=== PATIENT | male | born 1940 | race Hispanic/Latino ===

== ENCOUNTER 2020-01-28 10:25 | Inpatient (IN) | payer MEDICARE ==
--- OUTSIDE RECORDS SUMMARY | 2020-01-28 10:37 | XMS REPORT | Continuity of Care Document ---
:1940 Author Organization [facility] t Address [address] [place] [address] Care Team Providers Name Role Phone Tacos ZULETA, Chai Irving Attending Clinician Ryan ZULETA Attending Clinician 1, Lab Attending Clinician Unavailable Vtc-Lab Attending Clinician Unavailable Problems This patient has no known problems. Allergies, Adverse Reactions, Alerts This patient has no known allergies or adverse reactions. Medications This patient has no known medications. Procedures This patient has no known procedures. Encounters Start End Encounter Admission Attending Care Care Encounter Source Date/Time Date/Time Type Type Clinicians Facility Department ID 2019-12-16 2019-12-16 Telephone Tacos [facility] [id number] 00:00:00 00:00:00 Chai Deleon [id number] [place] [id number] [place] [phone] [place] [address] Office Building 2019-12-06 2019-12-06 Telephone ESTELA Davis [id number] 00:00:00 00:00:00 [facility] [id number] [facility] [id number] [id number] [facility] 2019-11-12 2019-11-12 Case Work Aide 1, Adc Lab [facility] [id number] 09:01:47 09:16:47 Visit [place] [id number] [place] [id number] [place] [address] [id number] 2019-11-02 2019-11-05 Case Work Aide Vtc-Lab [place] [id number] 10:01:37 09:55:50 Visit [facility] [id number] [facility] [id number] [place] [phone] [facility] Results This patient has no known results.
--- OUTSIDE RECORDS SUMMARY | 2020-01-28 10:38 | XMS REPORT | Summary of Care ---
:1939 Author Organization [facility] Address [address] [place] [id number] Care Team Providers Name Role Phone Visit, Adc Nurse Unavailable Unavailable Katelynn Nichols MD Unavailable Outpatient, Ccl Unavailable Unavailable 1, Vas Rm Unavailable Unavailable Tony Angulo Primary Care Provider Reason for Visit Reason Comments New Patient EST CARE GOUT (Routine) Status Reason Specialty Diagnoses / Referred By Referred To Procedures Contact Contact Authorized Rheumatology Diagnoses Chronic combined systolic and diastolic heart failure, NYHA class 2 Stage 3 chronic kidney disease Chai Balderrama Emilio Procedures CONSULT/REFERRAL RHEUMATOLOGY MD Tariq Irving MD [address] [place] [phone] Phone: Encounter Details Date Type Department Care Team Description 11/02/2019 Office Visit [facility] Gabriel Saleh MD [address] [place] [phone] Gouty arthritis (Primary Dx); Rheumatology-Nicolás Strange MD [address] [place], [place] [address] [place] [address] Hyperuricemia; [facility] [place] [facility] Dora Hess MD [address] [place] [phone] CKD (chronic kidney disease), stage III; [address] [facility] CHF (conge stive heart failure), NYHA class I, chronic, systolic; South, Entrance B Osteoarthritis, generalized; [place], [place] [facility] n odes; [phone] Kierra's nodes (with arthr cheli); [phone] Long-term use o f high-risk medication Allergies Active Allergy Reactions Severity Noted Date Comments Enalapril Cough 05/04/2010 documented as of this encounter (statuses as of 11/02/2019) Medications Medication Sig Dispensed Refills Start Date End Date Status docusate 100 mg capsule Take 1 capsule 30 capsule 0 08/16/2016 Active by mouth daily. sennosides 8.6 mg tablet Take 1 tablet 30 tablet 0 08/16/2016 Active by mouth as needed for Constipation. aspirin 81 mg EC tablet Take 1 tablet 90 tablet 3 11/19/2016 Active by mouth daily. nitroglycerin 0.[address] 1 tablet 1 Bottle 2 07/29/2017 Active sublingual tablet under the tongue every 5 (five) minutes as needed for Chest pain. tamsulosin (FLOMAX) 0.4 Take 1 capsule 30 capsule 3 06/09/2018 Active mg 24 hr by mouth daily. capsuleIndications: CKD stage G3a/A2, GFR 45-59 and albumin creatinine ratio 30-299 mg/g pravastatin 20 mg Take 1 tablet 90 tablet 3 06/18/2018 Active tabletIndications: by mouth at Chronic combined bedtime. systolic and diastolic heart failure carvedilol 6.25 mg Take 1 tablet 90 tablet 5 07/01/2018 Active tabletIndications: by mouth 2 Chronic combined (two) times systolic and diastolic daily. heart failure losartan 100 mg tablet Take 1 tablet 30 tablet 0 04/20/2019 Active by mouth daily. spironolactone 25 mg Take 0.5 45 tablet 3 06/26/2019 Active tablet tablets by mouth daily. furosemide 40 mg Take 1 tablet 180 tablet 3 07/20/2019 Active tabletIndications: CKD by mouth every stage G3a/A2, GFR 45-59 morning and and albumin creatinine evening. ratio 30-299 mg/g, Congestive heart failure, unspecified HF chronicity, unspecified heart failure type, Albuminuria, Essential hypertension, Gastroesophageal reflux disease without esophagitis pramipexole 0.5 mg Take 0.5 mg by 0 Active tabletIndications: take mouth 3 (three) one tablet by mouth times daily. every day Indications: take one tablet by mouth every day allopurinoL 100 mg Take 1 tablet 90 tablet 3 10/26/2019 Active tabletIndications: CKD by mouth daily. stage G3a/A2, GFR 45-59 and albumin creatinine ratio 30-299 mg/g, Chronic systolic congestive heart failure, Albuminuria, Essential hypertension, Gastroesophageal reflux disease without esophagitis, Acute gout of right foot, unspecified cause documented as of this encounter (statuses as of 11/02/2019) Active Problems Problem Noted Date Acute gout of right foot, unspecified cause 10/26/2019 Unintentional weight loss 08/16/2019 Pulmonary nodules 08/16/2019 CKD stage G3a/A2, GFR 45-59 and albumin creatinine rat io 30-299 mg/g 06/09/2018 Albuminuria 06/09/2018 CHF (congestive heart failure) 09/24/2017 S/P OFF PUMP CABG x 3 ON 08/12/2016 08/12/2016 CAD (coronary artery disease) 08/12/2016 Unstable angina 08/08/2016 Observation after surgery 08/07/2016 Coronary artery disease involving [place] coronary dal[place] ry without angina 11/07/2015 pectoris PE (pulmonary embolism) 09/19/2011 h/o PTCA with SHIVA in 201005/16/2011 Gastroesophageal reflux disease without esophagitis Atrial thrombus 05/16/2010 Positive PPD 05/10/2010 Ischemic cardiomyopathy 05/10/2010 Systolic heart failure 05/10/2010 Other chest pain 05/01/2010 Spasm of muscle 09/29/2009 Backache 05/11/2009 Overview: ICD10 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 Paroxysmal ventricular tachycardia Chronic systolic heart failure HLD (hyperlipidemia) Essential hypertension documented as of this encounter (statuses as of 11/02/2019) Immunizations Name Administration Dates Next Due Influenza High Dose 01/11/2011 Influenza Virus Vaccine 12/20/2009, 01/19/2007 PPD (TB) 04/25/2010 Pneumococcal Polysaccharide, PPSV23 (PNEUMOVAX) 02/26/2007 Zoster(Zostavax)(Shingles) 03/08/2009 documented as of this encounter Social History Tobacco Use Types Packs/Day Years Used Date Former Smoker Cigarettes 1 27 Quit: 05/05/18 94 Smokeless Tobacco: Former User Q uit: 01/11/1994 Alcohol Use Drinks/Week oz/Week Comments Yes drank 20 beers/d for 7 years; quit 1983 Sex Assigned at Date Recorded Not on file Job Start Date Occupation Industry Not on file Not on file Not on file Travel History Travel Start Travel End No recent travel history available. COVID-19 Exposure Response Date Recorded In the last month, have you been in contact with No / Unsure 11/02/2019 9:10 AM CDT someone who was confirmed or suspected to have Coronavirus / COVID-19? documented as of this encounter Last Filed Vital Signs Vital Sign Reading Time Taken Comments Blood Pressure 123/68 11/02/2019 9:19 AM CDT Pulse 71 11/02/2019 9:19 AM CDT Temperature 36.2 C (97.1 F) 11/02/2019 9:19 AM CDT Respiratory Rate - - Oxygen Saturation 99% 11/02/2019 9:19 AM CDT Inhaled Oxygen Concentration - - Weight 56.1 kg (123 lb 11.2 oz) 11/02/2019 9:19 AM CDT Height - - Body Mass Index 22.63 10/26/2019 10:16 AM CDT documented in this encounter Progress Notes Mahesh Johns - 11/02/2019 9:30 AM CDT Berto Grijalva is a 79 year old male Chief Complaint Patient presents with New Patient EST CARE GOUT ^^RIGHT FOOT Dora Murillo MD - 11/02/2019 9:30 AM CDT 11/01/2019 Chief Complaint/Reason for Visit: Follow-up visit for gout. HPI: Berto Grijalva presents to clinic today for new [facility] (Internal) consultation visit, requested by Dr. Chai Balderrama, for evaluation for gout.He is a 79 year old /White male with past medicalhistory listed below. He presented to the ED in August following pain of his right big toe and was diagnosed with gout.He wasdischarged on colchicine 0.6 mg. 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 He is compliant on allopurinol. He used to take Tylenol for pain. REVIEW OF SYSTEMS General - Negative for fatigue HEENT - Negative for blurry vision and dry mouth Cardiovascular - Negative for chest pain Respiratory - Negative for cough and dyspnea Gastrointestinal -Neg for constipation Genitourinary - no renal stones Skin - Negative for photosensitive rash Neuro - Negative for weakness Hematologic - Negative for easy bruising Psych - Negative for depression HISTORY Past Medical History: Diagnosis Date Benign hypertensive heart disease 01/2007 Benign localized hyperplasia of prostate without urinary obstruction and other lower urinary tract symptoms (LUTS) CAD (coronary artery disease) Carotid artery stenosis 50-79% left, 16-49% right CHF (congestive heart failure) ischemic Chronic systolic heart failure CKD (chronic kidney disease) stage 3, GFR 30-59 ml/min Diverticulosis Esophagitis 01/2007 Generalized osteoarthrosis, unspecified site 09/2006 h/o PTCA with SHIVA in 201005/16/2011 HLD (hyperlipidemia) HTN (hypertension) Paroxysmal ventricular tachycardia S/P OFF PUMP CABG x 3 ON 08/12/2016 08/12/2016 Past Surgical History: Procedure Laterality Date BACK SURGERY x3 OFF PUMP CORONARY ARTERY BYPASS GRAFTING N/A 08/12/2016 Surgeon: Ad Clark MD; Location: [facility] OR Location RI CSI ANY OTHER THAN PCI 2 YR mLAD, D1 (2010) Family History Problem Relation Age of Onset Cancer Mother possibly colon cancer Cancer Son thoracic tumor Pulmonary Father Tb Allergies Allergen Reactions Enalapril Cough Current Outpatient Medications on File Prior to Visit Medication Sig Dispense Refill allopurinoL 100 mg tablet Take 1 tablet by mouth daily. 90 tablet 3 pramipexole 0.5 mg tablet Take 0.5 mg by mouth 3 (three) times daily. Indications: take one tablet by mouth every day furosemide 40 mg tablet Take 1 tablet by mouth every morning and evening. 180 tablet 3 spironolactone 25 mg tablet Take 0.5 tablets by mouth daily. 45 tablet 3 losartan 100 mg tablet Take 1 tablet by mouth daily. 30 tablet 0 carvedilol 6.25 mg tablet Take 1 tablet by mouth 2 (two) times daily. 90 tablet 5 pravastatin 20 mg tablet Take 1 tablet by mouth at bedtime. 90 tablet 3 tamsulosin (FLOMAX) 0.4 mg 24 hr capsule Take 1 capsule by mouth daily. 30 capsule 3 nitroglycerin 0.[address] 1 tablet under the tongue every 5 (five) minutes as needed for Chest pain. 1 Bottle 2 aspirin 81 mg EC tablet Take 1 tablet by mouth daily. 90 tablet 3 docusate 100 mg capsule Take 1 capsule by mouth daily. 30 capsule 0 sennosides 8.6 mg tablet Take 1 tablet by mouth as needed for Constipation. 30 tablet 0 No current facility-administered medications on file prior to visit. PHYSICAL EXAM BP 123/68 | Pulse 71 | Temp 36.2 C (97.1 F) (Tympanic) | Wt 123 lb 11.2 oz (56.1 kg) | SpO2 99% | BMI 22.63 kg/m General: Alert, No apparent distress and Oriented to person, place, and time Psych: Affect euthymic Eyes: Sclera noninjected Ears, Nose, Throat, Mouth: No oral or nasal ulcers or erythema Skin: No rashes noted Neck: No lymphadenopathy Cardiovascular: Regular rate and rhythm and Normal S1 and S2 Respiratory: Clear to auscultation with no wheezing or crackles Abdomen: Soft, nontender, nondistended with normoactive bowel sounds Neuro: Normal gait and Able to arise from seated postion unassisted Musculoskeletal: Hands: Heberden's and Kierra's nodes + Wrists: Normal. Elbows: Normal. Shoulders: Normal. Feet: Normal. Ankles: Normal. Knees: Normal. Hips: Normal. Spine: Normal. Tender points: Normal. No joint swelling, warmth or tenderness in the DIP, PIP, MCP, wrist, elbow, MTP, ankle or knee joints bilaterally. Full ROM of these joints, hips and shoulders bilaterally. LABS Reviewed from September 2019 Uric acid - 8.2 mg/dl ASSESSMENT ICD-10-CM ICD-9-CM 1. Gouty arthritis M10.9 274.00 2. Hyperuricemia E79.0 790.6 3. CKD (chronic kidney disease), stage III N18.3 585.3 4. CHF (congestive heart failure), NYHA class I, chronic, systolic I50.22 428.22 428.0 5. Osteoarthritis, generalized M15.9 715.00 6. 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 Long-term use of high-risk medication Z79.899 V58.69 Gouty arthritis Hyperuricemia Comment : he is currently in remission No signs of inflammation on exam. On allopurinol 100 mg since one week. Plan : will continue current dose of allopurinol and hold off on colchicine now. Ordering HCV ab, CMP and HLA B *5801 CKD 3 Comment : avoid NSAIDs and renally dose meds Plan : continue f/u with nephrology Osteoarthritis, generalized Heberden's nodes Kierra's nodes Comment : OA of hands as clinically evidenced by the presence of heberden's and Kierra's nodes Plan : May use OTC Tylenol but not to exceed 2 g in 24 hours. 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 Dora Hess MD Rheumatology fellow Pager [phone] Nicolás Mendoza MD - 11/02/2019 9:30 AM JACKSONr[place] [address] Hess, I interviewed and examined the patient with Dr. Hess today in the clinic. Berto Grijalva is a 79 year old male from [place], a new patient. He is being referred by nephrology because of a history of gout and hyperuricemia, just diagnosed, and just started on allopurinol, 100 mg in October 2019. Thus far, he suffered only one attack in the right big toe, he says, and the gout diagnosis is not crystal-proven. He denies other joints being affected. A serum uric acid was 8.2 mg/dl in September 2019, and he was placed on allopurinol, 100 mg PO daily in October 2019. He has multiplemedical problems, as follows: PMH: CKD, stage 3, BPH with LUTS, improved on Flomax, GERD, CHF with chronic systolic heart failure, HTN, hyperlipidemia, generalized OA, CAD, carotid artery stenosis, paroxysmal ventricular tachycardia, and S/P CABG, x 3. He sees nephrology at [facility]. He is a former smoker, quitting in 1993, with a 27 pack year history, and he drinks alcohol. Medications: allopurinol, 100mg, SL Nitro, pramipexole, Lasix, Coreg, spironolactone, losartan, Pravachol, ASA 81 mg, Flomax, docusate. His labs are from September and October 2019: a CBC, UA, TSH, and CMP are normal, except for a serum creatinine of 1.54 mg/dl, and a serum uric acid level of 8.2 mg/dl. An MONTSE is negative. We don't have an HLA-B58*01, and a hep C screen. A chest-x-ray in 2018 showed some degree of cardiomegaly, and pulmonary congestion. PE: he is thin; there are no acutely swollen joints. He has sizable Heberden's and Kierra's nodes,bilaterally. There is no synovitis. The right big toe looks hyperpigmented but is not now swollen ortender to touch. His lungs are clear. He has generalized OA, and superimposed gout, in addition to many other medical problems, as above-listed. Today, we are ordering an HLA-B58*01, and a hep C screen. Therapeutically, we are continuing the allopurinol 100 mg PO daily for now. It is likely he will need a greater dose, e.g., 200 mg or perhaps even 300 mg PO daily to induce normouricemia. We are not prescribing colchicine at this time. We will see him again in 2-3 months, and have left future, standing orders for a repeat CBC, CMP, and a serum uric acid, on the allopurinol. We counseled him on the proper gout diet. The potential medication side effects were discussed, including renal and liver dysfunction, cytopenias, bone marrow suppression, allergic hypersensitivity reactions, the AHS, skin rashes, stomach upset, etc. I agree with Dr. Hess's impressions & recommendations, as written. documented in this encounter Plan of Treatment Date Type Specialty Care Team Description 01/05/2020 Appointment Cardiac Electrophysiology Pacemaker/Icd, [place] 02/08/2020 Office Visit Rheumatology Dora Hess MD [address] [place] [phone] Nicolás Daniels MD [address] [place], [place] [phone] [place] [address] 02/29/2020 Office Visit Nephrology Karlee Davis M D [address] [place] [address] 03/09/2020 Office Visit Pulmonary Disease Joaquin Martin, [address] [place] [phone] Name Type Priority Associated Diagnoses Order S paul HLA-ABC-DR TYPING RENAL LAB Routine Gouty arthritis E xpected: 11/02/2019, Expires: 2020 Health Maintenance Due Date Last Done Comments DTaP,Tdap,and Td Vaccines (1 - Tdap) 10/29/1951 Medicare Wellness Visit 10/29/2004 PNEUMOCOCCAL VACCINES 65+ (2 of 2 - 02/27/2008 02/26/2007 PCV13) Zoster Recombinant Vaccine (SHINGRIX) 05/03/2009 03/08/2009 (2 of 3) INFLUENZA VACCINE (#1) 2019 01/11/2011, 12/20/2009, 01/19/2007 Depression Screening 04/29/2020 04/29/2019 documented as of this encounter Results COMP. METABOLIC PANEL (95056) (11/02/2019 10:41 AM CDT) NA 138 135 - [address] [facility] mmol/L [facility] K 5.4 (H) 3.5 - 5.[address] [facility] mmol/L [facility] CL 105 98 - 108 mmol/L [facility] CO2 TOTAL 26 23 - 31 mmol/L [facility] AGAP 7 2 - [address] [facility] BUN 31 (H) 7 - 23 mg/dL [facility] GLUCOSE 110 70 - 110 mg/dL [facility] CREATININE 1.56 (H) 0.60 - 1.[address] [facility] mg/dL [facility] TOTAL BILI 0.3 0.1 - 1.1 mg/dL [facility] CALCIUM 10.2 8.6 - 10.[address] [facility] mg/dL [facility] T PROTEIN 7.3 6.3 - 8.2 g/dL [facility] ALBUMIN 4.3 3.5 - 5.0 g/dL [facility] ALK PHOS 83 34 - 122 U/L [facility] ALTv 37 5 - 50 U/L [facility] AST(SGOT) 45 (H) 13 - 40 U/L [facility] eGFR Calculation 43.0 mL/min/1.73m2 [facility] (Non- [facility] [place] eGFR Calculation 52.2 mL/min/1.73m2 [facility] () [facility] Specimen Blood - ARM, LEFT Narrative Performed At Association of Glomerular Filtration Rate [facility] (GFR) and Staging of Kidney Disease* CAMPUS + + --+ + | GFR (mL/min/1.73 m2) | With Kidney Damage | Without Kidney Damage + + --+ + | >90 | Stage one | Normal + + --+ + | 60-89 | Stage two | Decreased GFR + + --+ + | 30-59 | Stage three | Stage three + + --+ + | 15-29 | Stage four | Stage four + + --+ + | <15 (or dialysis) | Stage five | Stage five + + --+ + *Each stage assumes the associated GFR level has been in effect for at least three months. Stages 1 to 5, with or without kidney disease, indicate chronic kidney disease. Notes: Determination of stages one and two (with eGFR >59mL/min/1.73 m2) requires estimation of kidney damage for at least three months as defined by structural or functional abnormalities of the kidney, manifested by either: Pathological abnormalities or Markers of kidney damage (including abnormalities in the composition of the blood or urine or abnormalities in imaging tests). Performing Organization Address City/State/Zipcode Phone Number [facility] CLIA: [id number], [address] [place] [address] SERVICES-[facility] HCV ANTIBODY (11/02/2019 10:41 AM CDT) Pathologist Sig nature HCV Ab Negative [facility] SERVICES HCV Semi-Quantitative 0.[address] [facility] SERVICES Specimen Blood - ARM, LEFT Performing Organization Address City/State/Zipcode Phone Number [facility] CLIA: [id number], [address] [place], [place] [address] [facility] documented in this encounter Visit Diagnoses Diagnosis Gouty arthritis - Primary Gouty arthropathy, unspecified Hyperuricemia Other abnormal blood chemistry CKD (chronic kidney disease), stage III Chronic kidney disease, Stage III (moder ate) CHF (congestive heart failure), NYHA cla ss I, chronic, systolic Osteoarthritis, generalized Generalized osteoarthrosis, unspecified site Heberden's nodes Generalized osteoarthrosis, involving quintero nd Kierra's nodes (with arthropathy) Long-term use of high-risk medication documented in this encounter Insurance Payer Benefit Plan / Subscriber ID Effective Phone Address T ype Group Dates [facility] [id number] 2019-[place] [facility] - MEDICARE HMO MANAGED MEDICARE ADVANTAGE documented as of this encounter Advance Directives Type Date 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
--- OUTSIDE RECORDS SUMMARY | 2020-01-28 10:38 | XMS REPORT | Summary of Care ---
:1939 Author Organization [facility] - Health Address [address] [place] [address] Care Team Providers Name Role Phone Visit, Adc Nurse Unavailable Unavailable Katelynn Nichols MD Unavailable Outpatient, Ccl Unavailable Unavailable 1, Vas Rm Unavailable Unavailable Kev E Primary Care Provider Reason for Visit Reason Comments Blood Draw Encounter Details Date Type Department Care Team Description 11/02/2019 Button Clamper Visit LAB SERVICES AT [facility] Gelacio Saleh MD [address] [place] [address] [phone] Gouty arthritis; MULTISPECIALTY Nicolás Riley MD [address] [place], [place] [address] [place], [place] [phone] Chronic combined systolic and diastolic heart failure, NYHA class 2; [facility] Stage 3 chronic [place] [address] Allergies Active Allergy Reactions Severity Noted Date Comments Enalapril Cough 05/04/2010 documented as of this encounter (statuses as of 11/03/2019) Medications Medication Sig Dispensed Refills Start Date [...] as of this encounter (statuses as of 11/03/2019) Active Problems Problem Noted Date Acute gout [...] after surgery 08/07/2016 Coronary artery disease involving [place] coronary dalton ry without angina 11/07/2015 pectoris PE (pulmonary embolism) 09/19/2011 h/o PTCA with SHIVA in 201005/16/2011 Gastroesophageal reflux disease without esophagitis Atrial thrombus 05/16/2010 Positive PPD 05/10/2010 Ischemic cardiomyopathy 05/10/2010 Systolic heart failure 05/10/2010 Other chest pain 05/01/2010 Spasm of muscle 09/29/2009 Backache 05/11/2009 Overview: ICD10 Diagnosis Term Manager Of Procurement Utility Paroxysmal ventricular tachycardia Chronic systolic heart failure HLD (hyperlipidemia) Essential hypertension documented as of this encounter (statuses as of 11/03/2019) Immunizations Name Administration Dates Next Due Influenza [...] of this encounter Last Filed Vital Signs Not on filedocumented in this encounter Plan of Treatment Date Type Specialty Care Team Description 01/05/2020 Appointment Cardiac Electrophysiology Pacemaker/Icd, Miles 02/08/2020 Office Visit Rheumatology Dora Hess MD [address] [place] [phone] Nicolás Daniels MD [address] [place], [place] [id number] [place] [address] [phone] 02/29/2020 Office Visit Nephrology Karlee Davis M D [address] [place] [phone] 03/09/2020 Office Visit Pulmonary Disease Joaquin Martin DO [address] [place] [phone] Health Maintenance Due Date Last Done Comments DTaP,Tdap,and Td Vaccines (1 - Tdap) 10/29/1951 Medicare Wellness Visit 10/29/2004 PNEUMOCOCCAL VACCINES 65+ (2 of 2 - 02/27/2008 02/26/2007 PCV13) Zoster Recombinant Vaccine (SHINGRIX) 05/03/2009 03/08/2009 (2 of 3) INFLUENZA VACCINE (#1) 2019 01/11/2011, 12/20/2009, 01/19/2007 Depression Screening 04/29/2020 04/29/2019 documented as of this encounter Procedures Procedure Name Priority Date/Time Associated Diagnosis Comme nts N-TERMINAL PRO-BNP Routine 11/02/2019 10:41 AM Chronic combine d Results for this CDT systolic and procedure are i n diastolic heart the results failure, NYHA class section. 2 Stage 3 chronic kidney disease HCV ANTIBODY Routine 11/02/2019 10:41 AM Gouty arthritis Resul ts for this CDT procedure are i n the results section. COMP. METABOLIC Routine 11/02/2019 10:41 AM Gouty arthritis Re sults for this PANEL (51966) CDT procedure are in the results section. documented in this encounter Results N-TERMINAL PRO-BNP (11/02/2019 10:41 AM CDT) Pathologist Sig nature NT-proBNP 937 (H) <=450 pg/mL [facility] Specimen Blood - ARM, LEFT Narrative Performed At Biotin has been reported to cause a [facility] negative bias, interpret results relative to patient's use of biotin. Performing Organization Address City/State/Zipcode Phone Number [facility] CLIA: [id number], [address] [place] [address] [facility] HCV ANTIBODY (11/02/2019 10:41 AM CDT) Pathologist Sig nature HCV Ab Negative [facility] SERVICES HCV Semi-Quantitative 0.02 [facility] SERVICES Specimen Blood - ARM, LEFT Performing Organization Address City/State/Zipcode Phone Number [facility] CLIA: [id number], [address] [place], [place] [address] [facility] COMP. METABOLIC PANEL (16542) (11/02/2019 10:41 AM CDT) NA 138 135 - 145 [facility] mmol/L [facility] K 5.4 (H) 3.5 - 5.0 [facility] mmol/L [facility] CL 105 98 - 108 mmol/L [facility] CO2 TOTAL 26 23 - 31 mmol/L [facility] AGAP 7 2 - 16 [facility] BUN 31 (H) 7 - 23 mg/dL [facility] GLUCOSE 110 70 - 110 mg/dL [facility] CREATININE 1.56 (H) 0.60 - 1.25 [facility] mg/dL [facility] TOTAL BILI 0.3 0.1 - 1.1 mg/dL [facility] CALCIUM 10.2 8.6 - 10.6 [facility] mg/dL [facility] T PROTEIN 7.3 6.3 - 8.2 g/dL [facility] ALBUMIN 4.3 3.5 - 5.0 g/dL [facility] ALK PHOS 83 34 - 122 U/L [facility] ALTv 37 5 - 50 U/L [facility] AST(SGOT) 45 (H) 13 - 40 U/L [facility] eGFR Calculation 43.0 mL/min/1.73m2 [facility] (Non- [facility] eGFR Calculation 52.2 mL/min/1.73m2 [facility] () [facility] Specimen Blood - ARM, LEFT Narrative Performed At Association of Glomerular Filtration Rate [facility] (GFR) and Staging of Kidney Disease* [place] + + --+ + | GFR (mL/min/1.73 [...] tests). Performing Organization Address City/State/Zipcode Phone Number [facility] CLIA: [id number], [address] [place] [address] [phone] SERVICES-[facility] documented in this encounter Visit Diagnoses Diagnosis Gouty arthritis Gouty arthropathy, unspecified Chronic combined systolic and diastolic heart failure, NYHA class 2 Stage 3 chronic kidney disease documented in this encounter Insurance Payer Benefit Plan / Subscriber ID Effective Phone Address T e Group [facility] [id number] 2019-Kaylee olson [facility] - MEDICARE HMO MANAGED MEDICARE ADVANTAGE documented as of this encounter Advance Directives Type Date Recorded 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
--- OUTSIDE RECORDS SUMMARY | 2020-01-28 10:38 | XMS REPORT | Summary of Care ---
:1939 Author Organization [facility] - Health Address [address] [place] [address] Care Team Providers Name Role Phone Visit, Adc Nurse Unavailable Unavailable Katelynn Nichols MD Unavailable Outpatient, Ccl Unavailable Unavailable 1, Vas Rm Unavailable Unavailable Kev E Primary Care Provider Reason for Visit Reason Comments Blood Draw Encounter Details Date Type Department Care Team Description 11/02/2019 Reporting Developer Visit LAB SERVICES AT [facility] Gelacio Saleh MD [address] [place] [address] [phone] Gouty arthritis; MULTISPECIALTY Nicolás Riley MD [address] [place], [place] [id number] [place], [place] [address] Chronic combined systolic and diastolic heart failure, NYHA class 2; [address] [facility] Stage 3 [place] [address] Allergies Active Allergy Reactions Severity [...] after surgery 08/07/2016 Coronary artery disease involving [place] coronary dalton ry without angina 11/07/2015 pectoris PE (pulmonary embolism) 09/19/2011 h/o PTCA with SHIVA in 201005/16/2011 Gastroesophageal reflux disease without esophagitis Atrial thrombus 05/16/2010 Positive PPD 05/10/2010 Ischemic cardiomyopathy 05/10/2010 Systolic heart failure 05/10/2010 Other chest pain 05/01/2010 Spasm of muscle 09/29/2009 Backache 05/11/2009 Overview: ICD10 Diagnosis Term Shop Hand Utility Paroxysmal ventricular tachycardia Chronic systolic heart [...] 02/08/2020 Office Visit Rheumatology Dora Hess MD [address] [place] [phone] Nicolás Daniels MD [address] [place], [place] [address]RT[address] [place] [address] [phone] 02/29/2020 Office Visit Nephrology Karlee Davis M D [address] [place] [address] 03/09/2020 Office Visit Pulmonary Disease Joaquin Martin DO [address] [place] [phone] Name Type Priority Associated Diagnoses Date/Ti me COMP. METABOLIC PANEL LAB Routine Gouty arthritis 10:41 AM CDT (16548) HCV ANTIBODY LAB Routine Gouty arthritis 11/02/2019 1 0:41 AM CDT N-TERMINAL PRO-BNP LAB Routine Chronic combined 11/01 10:41 AM CDT systolic and diastolic heart failure, NYHA class 2 Stage 3 chronic kidney disease Health Maintenance Due Date Last Done Comments DTaP,Tdap,and Td Vaccines (1 - Tdap) 10/29/1951 Medicare Wellness Visit 10/29/2004 PNEUMOCOCCAL VACCINES 65+ (2 of 2 - 02/27/2008 02/26/2007 PCV13) Zoster Recombinant Vaccine (SHINGRIX) 05/03/2009 03/08/2009 (2 of 3) INFLUENZA VACCINE (#1) 2019 01/11/2011, 12/20/2009, 01/19/2007 Depression Screening 04/29/2020 04/29/2019 documented as of this encounter Results Not on filedocumented in this encounter Visit Diagnoses Diagnosis Gouty arthritis Gouty arthropathy, unspecified Chronic combined systolic and diastolic heart failure, NYHA class 2 Stage 3 chronic kidney disease documented in this encounter Insurance Payer Benefit Plan / Subscriber ID Effective Phone Address T ype Group Dates [facility] [id number] 2019-Kaylee olson [facility] - MEDICARE HMO MANAGED MEDICARE ADVANTAGE documented as of this encounter Advance Directives Type Date Recorded 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
--- OUTSIDE RECORDS SUMMARY | 2020-01-28 10:38 | XMS REPORT | Summary of Care ---
:1939 Author Organization [facility] Address [address] [place] [address] Care Team Providers Name Role Phone Visit, [...] Procedures CONSULT/REFERRAL RHEUMATOLOGY MD Tariq Irving MD [address] [place] [phone] Phone: Encounter Details Date Type Department Care Team Description 11/02/2019 Office Visit [facility] Gabriel Saleh MD [address] [place] [phone] Gouty arthritis (Primary Dx); Rheumatology-Nicolás Strange MD [address] [place], [place] [address] [place] [address] Hyperuricemia; [facility] Dora Hess MD [address] [place] [phone] CKD (chronic kidney disease), stage III; [address] [facility] CHF (conge stive heart failure), NYHA class I, chronic, systolic; South, Entrance B Osteoarthritis, generalized; [place], [place] [facility]; [phone] Kierra's nodes (with arthr cheli); [phone] Long-term use o f high-risk medication Allergies [...] after surgery 08/07/2016 Coronary artery disease involving [place] coronary dalton ry without angina 11/07/2015 pectoris PE (pulmonary embolism) 09/19/2011 h/o PTCA with SHIVA in 201005/16/2011 Gastroesophageal reflux disease without esophagitis Atrial thrombus 05/16/2010 Positive PPD 05/10/2010 Ischemic cardiomyopathy 05/10/2010 Systolic heart failure 05/10/2010 Other chest pain 05/01/2010 Spasm of muscle 09/29/2009 Backache 05/11/2009 Overview: ICD10 Diagnosis Term Sharepoint Solutions Architect Utility Paroxysmal ventricular tachycardia Chronic systolic heart [...] Grijalva presents to clinic today for new [facility] (Internal) consultation visit, requested by Dr. Chai Balderrama, for evaluation for gout.He is a 79 year old /White male with past medicalhistory listed below. He presented to the ED in August following pain of his right big toe and was diagnosed with gout.He wasdischarged on colchicine 0.6 mg. He was started on allopurinol 100 mg by his sem manager .He reports that he feels good and [...] N/A 08/12/2016 Surgeon: Ad Clark MD; Location: [facility] OR Location [place] CSI ANY OTHER THAN PCI 2 YR [...] to exceed 2 g in 24 hours. 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 Dora Hess MD Rheumatology fellow Pager [phone] Nicolás Mendoza MD - 11/02/2019 9:30 AM [place] [address] Hess, I interviewed and examined the patient with Dr. Hess today in the clinic. Berto Grijalva is a 79 year old male from [place], a new patient. He is being referred [...] CABG, x 3. He sees nephrology at [facility]. He is a former smoker, quitting [...] 02/08/2020 Office Visit Rheumatology Dora Hess MD [address] [place] [phone] Nicolás Daniels MD [address] [place], [place] [address] [place] [address] 02/29/2020 Office Visit Nephrology Karlee Davis M D [address] [place] [address] 03/09/2020 Office Visit Pulmonary Disease Joaquin Martin, [address] [place] [phone] Name Type Priority Associated Diagnoses Order [...] of this encounter Results COMP. METABOLIC PANEL (96310) (11/02/2019 10:41 AM CDT) NA 138 135 - 145 [facility] mmol/L [facility] K 5.4 (H) 3.5 - 5.0 [facility] mmol/L [facility] CL 105 98 - 108 mmol/L [facility] CO2 TOTAL 26 23 - 31 mmol/L [facility] AGAP 7 2 - 16 [facility] BUN 31 (H) 7 - 23 mg/dL [facility] GLUCOSE 110 70 - 110 mg/dL [facility] CREATININE 1.56 (H) 0.60 - 1.25 [facility] mg/dL [facility] TOTAL BILI 0.3 0.1 - 1.1 mg/dL [facility] CALCIUM 10.2 8.6 - 10.6 [facility] mg/dL [facility] T PROTEIN 7.3 6.3 - 8.2 g/dL [facility] ALBUMIN 4.3 3.5 - 5.0 g/dL [facility] ALK PHOS 83 34 - 122 U/L [facility] ALTv 37 5 - 50 U/L [facility] AST(SGOT) 45 (H) 13 - 40 U/L [facility] eGFR Calculation 43.0 mL/min/1.73m2 [facility] (Non- [facility]) [facility] eGFR Calculation 52.2 mL/min/1.73m2 [facility] () [facility] Specimen Blood - ARM, LEFT Narrative Performed At Association of Glomerular Filtration Rate [facility] (GFR) and Staging of Kidney Disease* CAMPUS [...] tests). Performing Organization Address City/State/Zipcode Phone Number [facility] CLIA: [id number], [address] [place] [address] [phone] SERVICES-[facility] HCV ANTIBODY (11/02/2019 10:41 AM CDT) Pathologist Sig nature HCV Ab Negative [facility] HCV Semi-Quantitative 0.02 [facility] Specimen Blood - ARM, LEFT Performing Organization Address City/State/Zipcode Phone Number [facility] CLIA: [id number], [address] [place], [place] [address] [facility] documented in this encounter Visit Diagnoses Diagnosis [...] Effective Phone Address T ype Group Dates [facility] [id number] 2019-Kaylee Il whitney [facility] - MEDICARE HMO MANAGED MEDICARE ADVANTAGE documented as of this encounter Advance Directives Type Date Recorded 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
--- OUTSIDE RECORDS SUMMARY | 2020-01-28 10:39 | XMS REPORT | Summary of Care ---
:1939 Author Organization [facility] Address [address] [place] [address] Care Team Providers Name Role Phone Visit, Adc Nurse Unavailable Unavailable Katelynn Nichols MD Unavailable Outpatient, Ccl Unavailable Unavailable 1, Vas Rm Unavailable Unavailable Kev E Primary Care Provider Reason for Visit Reason Comments Results Encounter Details Date Type Department Care Team Description 11/03/2019 Telephone [facility] Cardiology, Chai Balderrama MD Results [address], [address] [place] [address] Floor [phone] [place] [phone] Allergies Active Allergy Reactions Severity Noted Date [...] after surgery 08/07/2016 Coronary artery disease involving [place] coronary dalton ry without angina 11/07/2015 pectoris PE (pulmonary embolism) 09/19/2011 h/o PTCA with SHIVA in 201005/16/2011 Gastroesophageal reflux disease without esophagitis Atrial thrombus 05/16/2010 Positive PPD 05/10/2010 Ischemic cardiomyopathy 05/10/2010 Systolic heart failure 05/10/2010 Other chest pain 05/01/2010 Spasm of muscle 09/29/2009 Backache 05/11/2009 Overview: ICD10 Diagnosis Term Energy Consultant Utility Paroxysmal ventricular tachycardia Chronic systolic heart [...] Years Used Date Former Smoker Cigarettes 1 Quit: 05/05/18 94 Smokeless Tobacco: Former User [...] Treatment Date Type Specialty Care Team Description 11/12/2019 Fire Safety Inspector Visit Clinical Medical 1, Adc Lab Laboratory 01/05/2020 Appointment Cardiac Electrophysiology Pacemaker/Icd, Miles 02/08/2020 Office Visit Rheumatology Dora Hess MD [address] [place] [phone] Nicolás Daniels MD [address] [place], [place] [address] [place], [place] [phone] 02/29/2020 Office Visit Nephrology Karlee Davis M D [address] [place], [place] [address], [place] [address] [phone] 03/09/2020 Office Visit Pulmonary Disease Joaquin Martin DO [address] [place] [phone] Name Type Priority Associated Diagnoses Order S chedule BASIC METABOLIC PANEL LAB Routine Chronic combined sy stolic Expected: 11/03/2019, ([id number])(NA, K, CL, CO2, and diastolic hea rt Expires: 11/02/2020 GLUCOSE, BUN, failure, NYHA class 2 CREATININE, [place]) N-TERMINAL PRO-BNP LAB Routine Chronic combined systo lic Expected: 11/03/2019, and diastolic heart Expires: 11/02/2020 failure, NYHA class 2 Health Maintenance Due Date Last Done Comments DTaP,Tdap,and Td Vaccines (1 - Tdap) 10/29/1951 Medicare Wellness Visit 10/29/2004 PNEUMOCOCCAL VACCINES 65+ (2 of 2 - 02/27/2008 02/26/2007 PCV13) Zoster Recombinant Vaccine (SHINGRIX) 05/03/2009 03/08/2009 (2 of 3) INFLUENZA VACCINE (#1) 2019 01/11/2011, 12/20/2009, 01/19/2007 Depression Screening 04/29/2020 04/29/2019 documented as of this encounter Results Not on filedocumented in this encounter Visit Diagnoses Diagnosis Chronic combined systolic and diastolic heart failure, NYHA class 2 - Primary documented in this encounter Insurance Payer Benefit Plan / Subscriber ID Effective Phone Address T ype Group Dates [place] [facility] [id number] 2019-Kaylee olson [facility] HEALTHCARE - MEDICARE HMO MANAGED MEDICARE ADVANTAGE documented as of this encounter Advance Directives Type Date Recorded 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
--- OUTSIDE RECORDS SUMMARY | 2020-01-28 10:39 | XMS REPORT | Summary of Care ---
:1940 Author Organization [facility] Address [address] [place] [address] Care Team Providers Name Role Phone Visit, Adc Nurse Unavailable Unavailable Katelynn Nichols MD Unavailable Outpatient, Ccl Unavailable Unavailable 1, Vas Rm Unavailable Unavailable Tony Angulo Primary Care Provider Reason for Visit Reason Comments LAB WORK Auth/Cert Status Reason Specialty Diagnoses / Procedures Referred By Olinda bose Referred To Contact Phlebotomy Diagnoses CKD stage G3a/A2, GFR 45-59 and albumin creatinine ratio 30-299 mg/g - Primary Adc Pob Lab Draw Procedures Intact PTH Urinalysis Pro/Hemo [facility] [address] [place] [address] , [address] [place] [address] Phone: Fax: Encounter Details Date Type Department Care Team Description 10/21/2019 [employer] Visit [facility] Karlee Davis MD [address] [place] [address] CKD stage G3a/A2, GFR Professional Office Pob, Adc Lab Main 45-59 and albumin Building Phlebotomy creatini ne ratio Lab 30-299 mg/g Professional [facility] Building [address] [place] [address] , [address] [place] [address] Allergies Active Allergy Reactions Severity Noted Date Comments Enalapril Cough 05/04/2010 documented as of this encounter (statuses as of 11/03/2019) Medications Medication Sig Dispensed Refills Start Date End Date Status docusate 100 mg Take 1 30 capsule 0 08/16/2016 Ac tive capsule capsule by mouth daily. sennosides 8.6 mg Take 1 30 tablet 0 08/16/2016 A ctive tablet tablet by mouth as needed for Constipation . aspirin 81 mg EC Take 1 90 tablet 3 11/19/2016 Ac tive tablet tablet by mouth daily. nitroglycerin 0.[address] 1 1 Bottle 2 07/29/2017 Active sublingual tablet tablet under the tongue every 5 (five) minutes as needed for Chest pain. tamsulosin (FLOMAX) Take 1 30 capsule 3 06/09/2018 Active 0.4 mg 24 hr capsule by capsuleIndications: mouth daily. 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 losartan 100 mg tablet Take 1 30 tablet 0 04/20/2019 Active tablet by mouth daily. spironolactone 25 mg Take 0.5 45 tablet 3 06/26/2019 Active tablet tablets by mouth daily. furosemide 40 mg Take 1 180 tablet 3 07/20/2019 A ctive tabletIndications: CKD tablet by stage G3a/A2, GFR mouth every 45-59 and albumin morning and creatinine ratio evening. 30-299 mg/g, Congestive heart failure, unspecified HF chronicity, unspecified heart failure type, Albuminuria, Essential hypertension, Gastroesophageal reflux disease without esophagitis colchicine 0.6 mg Take one 30 tablet 1 09/10/2019 D iscontinued tabletIndications: tablet by 0 Acute gout involving mouth daily toe of right foot, as needed unspecified cause for toe pain documented as of this encounter (statuses as of 11/03/2019) Active Problems Problem Noted Date Unintentional weight loss 08/16/2019 Pulmonary nodules 08/16/2019 CKD stage G3a/A2, GFR 45-59 and albumin creatinine rat io 30-299 mg/g 06/09/2018 Albuminuria 06/09/2018 CHF (congestive heart failure) 09/24/2017 S/P OFF PUMP CABG x 3 ON 08/12/2016 08/12/2016 CAD (coronary artery disease) 08/12/2016 Unstable angina 08/08/2016 Observation after surgery 08/07/2016 Coronary artery disease involving [place] coronary [place] ry without angina 11/07/2015 pectoris PE (pulmonary embolism) 09/19/2011 h/o PTCA with SHIVA in 201005/16/2011 Gastroesophageal reflux disease without esophagitis Atrial thrombus 05/16/2010 Positive PPD 05/10/2010 Ischemic cardiomyopathy 05/10/2010 Systolic heart failure 05/10/2010 Other chest pain 05/01/2010 Spasm of muscle 09/29/2009 Backache 05/11/2009 Overview: ICD10 Diagnosis Term Manager Zone Utility Paroxysmal ventricular tachycardia Chronic systolic heart [...] been in contact with No / Unsure 09/22/2019 10:14 AM CDT someone who was confirmed or suspected to have Coronavirus / COVID-19? documented as of this encounter Last Filed Vital Signs Not on filedocumented in this encounter Plan of Treatment Date Type Specialty Care Team Description 01/05/2020 Appointment Cardiac Electrophysiology Pacemaker/Icd, Miles 02/08/2020 Office Visit Rheumatology Dora Hess MD [address] [place] [phone] Nicolás Daniels MD [address] [place], [place] [id number] [place] [address] [phone] 02/29/2020 Office Visit Nephrology Karlee Davis M D [address] [place] [address] 03/09/2020 Office Visit Pulmonary Disease Joaquin Martin DO [address] [place] [phone] Health Maintenance Due Date Last Done Comments DTaP,Tdap,and Td Vaccines (1 - Tdap) 10/29/1951 Medicare Wellness Visit 10/29/2004 PNEUMOCOCCAL VACCINES 65+ (2 of 2 - 02/27/2008 02/26/2007 PCV13) Zoster Recombinant Vaccine (SHINGRIX) 05/03/2009 03/08/2009 (2 of 3) INFLUENZA VACCINE (#1) 2019 01/11/2011, 12/20/2009, 01/19/2007 Depression Screening 04/29/2020 04/29/2019 documented as of this encounter Procedures Procedure Name Priority Date/Time Associated Comments Diagnosis PROTEIN CREAT RATIO Routine 10/21/2019 10:24 AM CKD stage G3a/ A2, Results for this URINE RANDOM CDT GFR 45-59 and procedure are in albumin creatinine the resul ts ratio 30-299 mg/g section. URINALYSIS Routine 10/21/2019 10:24 AM CKD stage G3a/A2, Res ults for this CDT GFR 45-59 and procedure are in albumin creatinine the resul ts ratio 30-299 mg/g section. PROFILE / HEMOGRAM Routine 10/21/2019 10:22 AM CKD stage G3a/A 2, Results for this CDT GFR 45-59 and procedure are in albumin creatinine the resul ts ratio 30-299 mg/g section. INTACT PTH CALCIUM Routine 10/21/2019 10:22 AM CKD stage G3a/A 2, Results for this GROUP CDT GFR 45-59 and procedure are in albumin creatinine the resul ts ratio 30-299 mg/g section. BASIC METABOLIC Routine 10/21/2019 10:22 AM CKD stage G3a/A2, Results for this PANEL (NA, K, CL, CDT GFR 45-59 and procedure are in CO2, GLUCOSE, BUN, albumin creatinine the results CREATININE, CA) ratio 30-299 mg/g section . MAGNESIUM Routine 10/21/2019 10:22 AM CKD stage G3a/A2, Res ults for this CDT GFR 45-59 and procedure are in albumin creatinine the resul ts ratio 30-299 mg/g section. PHOSPHORUS Routine 10/21/2019 10:22 AM CKD stage G3a/A2, Res ults for this CDT GFR 45-59 and procedure are in albumin creatinine the resul ts ratio 30-299 mg/g section. documented in this encounter Results URINALYSIS (10/21/2019 10:24 AM CDT) Pathologist Sig nature APPEARANCE Clear Clear [facility] COLOR Yellow Yellow [facility] PH 5.0 4.8 - 8.0 [facility] SP GRAVITY 1.011 1.003 - 1.030 [facility] GLU U QUAL Normal Normal [facility] BLOOD Negative Negative [facility] KETONES Negative Negative [facility] PROTEIN Negative Negative [facility] UROBILIN Normal Normal [facility] BILIRUBIN Negative Negative [facility] NITRITE Negative Negative [facility] LEUK JIM Negative Negative [facility] RBC/HPF 1 0 - 3 HPF [facility] WBC/HPF <1 0 - 5 HPF [facility] BACTERIA Negative Negative [facility] MUCOUS Slight (A) Negative LPF [facility] HYAL CAST 8 (H) <=2 LPF [facility] Specimen Urine - URINE, CLEAN CATCH Performing Organization Address [facility] Phone Number [facility] CLIA: [id number], [address] [place], [place] [address] PROTEIN CREAT RATIO URINE RANDOM (10/21/2019 10:24 AM CDT) Pathologist Sig nature T. PROT U 12 mg/dL [facility] CREAT U 91.3 mg/dL [facility] Protein/Creatinine 0.1 0.0 - 2.0 [facility] Specimen Urine - URINE, CLEAN CATCH Performing Organization Address [facility]/Zipcode Phone Number [facility] CLIA: [id number], [address] [place], [place] [address] INTACT PTH CALCIUM GROUP (10/21/2019 10:22 AM CDT) CALCIUM 9.7 8.6 - 10.6 [facility] mg/dL SERVICES PTH-INTACT 29.9 12.0 - 88.0 [facility] pg/mL SERVICES PTH-CA Interpretation Comment: PTH IS [facility] Appropriate for SERVICES Calcium Specimen Blood - ARM, RIGHT Performing Organization Address City/[facility] Phone Number [facility] SERVICES CLIA: [id number], [address] [place], [place] [address] PROFILE / HEMOGRAM (10/21/2019 10:22 AM CDT) Pathologist Sig nature WBC 6.06 4.20 - 10.70 [facility] 10*3/L [facility] RBC 3.92 (L) 4.26 - 5.52 [facility] 10*6/L [facility] HGB 12.4 12.2 - 16.4 g/dL [facility] HCT 37.4 (L) 38.4 - 49.3 % [facility] MCH 31.6 26.1 - 32.7 pg [facility] MCV 95.4 81.7 - 95.6 fL [facility] MCHC 33.2 31.2 - 35.0 g/dL [facility] PLT 206 150 - 328 10*3/L [facility] MPV 11.2 9.8 - 13.0 fL [facility] RDW-CV 13.1 12.1 - 15.4 % [facility] RDW-SD 45.3 38.5 - 51.6 fL [facility] NRBC x10^3 <0.01 10*3/L [facility] NRBC/100 WBC 0.0 0.0 - 10.0 /100 [facility] IPF % [facility] Specimen Blood - ARM, RIGHT Performing Organization Address City/[facility]/Zipcode Phone Number [facility] CLIA: [id number], [address] [place], [place] [address] PHOSPHORUS (10/21/2019 10:22 AM CDT) Pathologist Sig nature PHOSPHORUS 3.1 2.5 - 5.0 mg/dL [facility] Specimen Blood - ARM, RIGHT Performing Organization Address [facility] Phone Number [facility] CLIA: [id number], [address] [place], [place] [address] MAGNESIUM (10/21/2019 10:22 AM CDT) Pathologist Sig nature MAGNESIUM 2.3 1.7 - 2.4 mg/dL [facility] Specimen Blood - ARM, RIGHT Performing Organization Address [facility] Phone Number [facility] CLIA: [id number], [address] [place] [address] BASIC METABOLIC PANEL (NA, K, CL, CO2, GLUCOSE, BUN, CREATININE, CA) (10/21/2019 10:22 AM CDT) NA 139 135 - 145 [facility] mmol/L [facility] K 5.1 (H) 3.5 - 5.0 [facility] mmol/L [facility] CL 109 (H) 98 - 108 mmol/L [facility] CO2 TOTAL 23 23 - 31 mmol/L [facility] AGAP 7 2 - 16 [facility] BUN 22 7 - 23 mg/dL [facility] GLUCOSE 102 70 - 110 mg/dL [facility] CREATININE 1.54 (H) 0.60 - 1.25 [facility] mg/dL [facility] CALCIUM 9.7 8.6 - 10.6 [facility] mg/dL [facility] eGFR Calculation 43.8 mL/min/1.73m2 [facility] (Non[facility] [place]) eGFR Calculation 53.1 mL/min/1.73m2 [facility] () [facility] Specimen Blood - ARM, RIGHT Narrative Performed At Association of Glomerular Filtration Rate (GFR) [facility] and Staging of Kidney Disease* + + +- + | GFR (mL/min/1.73 m2) | With Kidney Damage | Without Kidney Damage + + +- + | >90 | Stage one | Normal + + +- + | 60-89 | Stage two | Decreased GFR + + +- + | 30-59 | Stage three | Stage three + + +- + | 15-29 | Stage four | Stage four + + +- + | <15 (or dialysis) | Stage five | Stage five + + +- + *Each stage assumes the associated GFR [...] tests). Performing Organization Address City/State/Zipcode Phone Number [facility] CLIA: [id number], [address] [place], [place] [address] documented in this encounter Visit Diagnoses Diagnosis CKD stage G3a/A2, GFR 45-59 and albumin creatinine ratio 30-299 mg/g documented in this encounter Insurance Payer Benefit Plan / Subscriber ID Effective Phone Address T ype Group Dates [facility] [id number] 2019-Kaylee olson [facility] - MEDICARE HMO MANAGED MEDICARE ADVANTAGE documented as of this encounter Advance Directives Type Date Recorded Patient Ball Thread 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
--- OUTSIDE RECORDS SUMMARY | 2020-01-28 10:40 | XMS REPORT | Summary of Care ---
:1940 Author Organization [facility] Address [address] [place] [address] Care Team Providers Name Role Phone Visit, Adc Nurse Unavailable Unavailable Katelynn Nichols MD Unavailable Outpatient, Ccl Unavailable Unavailable 1, Vas Rm Unavailable Unavailable Tony Angulo Primary Care Provider Reason for Visit Reason Comments Follow-up Encounter Details Date Type Department Care Team Description 10/26/2019 Office Visit [facility] Karlee Davis, CKD stage G3a /A2, GFR 45-59 and albumin creatinine ratio 30-299 mg/g (Primary Dx); Nephrology- Romina goss MD Chronic systolic congestive heart failur e; [address] Albuminuria; [address] [facility] [place] [place] Essential h ypertension; [address] [phone] Gastroesophageal reflux disease without esophagitis; [place], [place] [phone] Acute gout of right [place], [place] [phone] Allergies Active Allergy Reactions Severity Noted Date Comments Enalapril Cough 05/04/2010 documented as of this encounter (statuses as of 11/04/2019) Medications Medication Sig Dispensed Refills Start Date [...] esophagitis pramipexole 0.5 mg Take 0.5 mg 0 Active tabletIndications: by mouth 3 take one tablet by (three) mouth every day times daily. Indications: take one tablet by mouth every day allopurinoL 100 mg Take 1 90 tablet 3 10/26/2019 Active tabletIndications: CKD tablet by stage G3a/A2, GFR mouth daily. 45-59 and albumin creatinine ratio 30-299 mg/g, Chronic systolic congestive heart failure, Albuminuria, Essential hypertension, Gastroesophageal reflux disease without esophagitis, Acute gout of right foot, unspecified cause colchicine 0.6 mg Take one 30 tablet 1 09/10/2019 D iscontinued tabletIndications: tablet by 0 Acute gout involving mouth daily toe of right foot, as needed unspecified cause for toe pain pantoprazole 40 mg EC Take 40 mg 0 02 Discontinued tabletIndications: by mouth 0 take one tablet by daily. mouth ever day Indications: take one tablet by mouth ever day documented as of this encounter (statuses as of 11/04/2019) Active Problems Problem Noted Date Acute gout [...] after surgery 08/07/2016 Coronary artery disease involving [place] coronary [place] ry without angina 11/07/2015 pectoris PE (pulmonary embolism) 09/19/2011 h/o PTCA with SHIVA in 201005/16/2011 Gastroesophageal reflux disease without esophagitis Atrial thrombus 05/16/2010 Positive PPD 05/10/2010 Ischemic cardiomyopathy 05/10/2010 Systolic heart failure 05/10/2010 Other chest pain 05/01/2010 Spasm of muscle 09/29/2009 Backache 05/11/2009 Overview: ICD10 Diagnosis Term 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 Paroxysmal ventricular tachycardia Chronic systolic heart failure HLD (hyperlipidemia) Essential hypertension documented as of this encounter (statuses as of 11/04/2019) Immunizations Name Administration Dates Next Due Influenza High Dose 01/11/2011 Influenza Virus Vaccine 12/20/2009, 01/19/2007 PPD (TB) 04/25/2010 Pneumococcal Polysaccharide, PPSV23 (PNEUMOVAX) 02/26/2007 Zoster(Zostavax)(Shingles) 03/08/2009 documented as of this encounter Social History Tobacco Use Types Packs/Day Years Used Date Former Smoker Cigarettes 05 17 Quit: 05/05/18 94 Smokeless Tobacco: Former User [...] been in contact with No / Unsure 10/26/2019 10:03 AM CDT someone who was confirmed or suspected to have Coronavirus / COVID-19? documented as of this encounter Last Filed Vital Signs Vital Sign Reading Time Taken Comments Blood Pressure 113/61 10/26/2019 10:18 AM CDT Pulse 73 10/26/2019 10:18 AM CDT Temperature 36.3 C (97.4 F) 10/26/2019 10:16 AM CDT Respiratory Rate 16 10/26/2019 10:16 AM CDT Oxygen Saturation - - Inhaled Oxygen Concentration - - Weight 57.9 kg (127 lb 9.6 oz) 10/26/2019 10:16 AM CDT Height 157.5 cm (5' 2") 10/26/2019 10:16 AM CDT Body Mass Index 23.34 10/26/2019 10:16 AM CDT documented in this encounter Progress Notes Karlee Davis MD - 10/26/2019 10:30 AM CDT Cc: Chief Complaint Patient presents with Follow-up Berto Grijalva is a 77 year old male with HTN, CHF with EF of 20-25% (2018), CAD s/p CABG, carotidartery disease, s/p defibrillator, GERD, and CKD presenting for follow up. Patient still reports urinary frequency. He reports chronic stable SOB and he has no LE swelling. He has on and off orthopnea (uses 3 pillows) but no PND. Patient had a gout 08/2019. Allergies Berto is allergic to enalapril. Medications Current Outpatient Medications on File Prior to Visit Medication Sig Dispense Refill pantoprazole 40 mg EC tablet Take 40 mg by mouth daily. Indications: take one tablet by mouth ever day pramipexole 0.5 mg tablet Take 0.5 mg by mouth 3 (three) times daily. Indications: take one tablet by mouth every day colchicine 0.6 mg tablet Take one tablet by mouth daily as needed for toe pain 30 tablet 1 furosemide 40 mg tablet Take 1 tablet [...] capsule by mouth daily. 30 capsule 3 aspirin 81 mg EC tablet Take 1 tablet by mouth daily. 90 tablet 3 docusate 100 mg capsule Take 1 capsule by mouth daily. 30 capsule 0 nitroglycerin 0.[address] 1 tablet under the tongue every 5 (five) minutes as needed for Chest pain. 1 Bottle 2 sennosides 8.6 mg tablet Take 1 tablet by mouth as needed for Constipation. 30 tablet 0 No current facility-administered medications on file prior to visit. Review of Systems Constitutional: Negative for appetite change, chills, fatigue, fever and unexpected weight change. HENT: Negative for congestion. Eyes: Negative for visual disturbance. Respiratory: Positive for shortness of breath. Negative for wheezing. Cardiovascular: Negative for chest pain and leg swelling. Gastrointestinal: Negative for nausea and vomiting. Genitourinary: Negative for dysuria, urgency, polyuria, frequency, hematuria, decreased urine volumeand difficulty urinating. Musculoskeletal: Negative for arthralgias, joint swelling and myalgias. Restless legs Skin: Negative. Neurological: Negative for dizziness, tremors and weakness. Psychiatric/Behavioral: Negative for agitation, behavioral problems, confusion and sleep disturbance. Endocrine: Negative for polyuria. Vital Signs BP 113/61 (Patient Position: Standing) | Pulse 73 | Temp 36.3 C (97.4 F) | Resp 16 | Ht 5' 2" (1.575 m) | Wt 127 lb 9.6 oz (57.9 kg) | BMI 23.34 kg/m Physical Exam Constitutional: He is oriented to person, place, and time. He appears well- developed. No distress. HENT: Head: Normocephalic and atraumatic. Eyes: Pupils are equal, round, and reactive to light. Neck: No JVD present. Cardiovascular: Exam reveals no gallop and no friction rub. No murmur heard. Pulmonary/Chest: No respiratory distress. He has no wheezes. He has no rales. Abdominal: Soft. He exhibits no distension. There is no tenderness. There is no rebound. A hernia (reducible, non tender) is present. Musculoskeletal: He exhibits edema (2+). Neurological: He is alert and oriented to person, place, and time. Skin: Skin is warm. No rash noted. Psychiatric: He has a normal mood and affect. Probation Counselor Visit on 10/21/2019 Component Date Value NA 10/21/2019 139 K 10/21/2019 5.1* CL 10/21/2019 109* CO2 TOTAL 10/21/2019 23 AGAP 10/21/2019 7 BUN 10/21/2019 22 GLUCOSE 10/21/2019 102 CREATININE 10/21/2019 1.54* CALCIUM 10/21/2019 9.7 eGFR Calculation (Non-Af* 10/21/2019 43.8 eGFR Calculation (Lisa* 10/21/2019 53.1 MAGNESIUM 10/21/2019 2.3 T. PROT U 10/21/2019 12 CREAT U 10/21/2019 91.3 Protein/Creatinine Ratio* 10/21/2019 0.1 PHOSPHORUS 10/21/2019 3.1 WBC 10/21/2019 6.06 RBC 10/21/2019 3.92* HGB 10/21/2019 12.4 HCT 10/21/2019 37.4* MCH 10/21/2019 31.6 MCV 10/21/2019 95.4 MCHC 10/21/2019 33.2 PLT 10/21/2019 206 MPV 10/21/2019 11.2 RDW-CV 10/21/2019 13.1 RDW-SD 10/21/2019 45.3 NRBC x10^3 10/21/2019 <0.01 NRBC/100 WBC 10/21/2019 0.0 APPEARANCE 10/21/2019 Clear COLOR 10/21/2019 Yellow PH 10/21/2019 5.0 SP GRAVITY 10/21/2019 1.011 GLU U QUAL 10/21/2019 Normal BLOOD 10/21/2019 Negative KETONES 10/21/2019 Negative PROTEIN 10/21/2019 Negative UROBILIN 10/21/2019 Normal BILIRUBIN 10/21/2019 Negative NITRITE 10/21/2019 Negative LEUK JIM 10/21/2019 Negative RBC/HPF 10/21/2019 1 WBC/HPF 10/21/2019 <1 BACTERIA 10/21/2019 Negative MUCOUS 10/21/2019 Slight* HYAL CAST 10/21/2019 8* CALCIUM 10/21/2019 9.7 PTH-INTACT 10/21/2019 29.9 PTH-CA Interpretation 10/21/2019 Assessment/Plan CKD stage G3a/A2, 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 Patient also has cardiomyopathy and might have cardiorenal syndrome type 2. Urine studies showed no hematuria and he has improving albuminuria with CKD (increased echogenicity and small size kidneys). LUTS improved with Flomax. Pt had another episode of BRIE post [facility] 12/2018 but creatinine improved since then. Plan: Continue diuretics and Losartan (currently at max dose). Will continue to monitor proteinuria and renal function. Essential hypertension Comment: BP is well controlled. Plan: Continue Furosemide, Losartan, and carvedilol. Chronic systolic heart failure Comment: Is below dry weight (EDW thought to be 134 lbs and he is currently at 127 lbs) and is maintained on ARB and beta blockers, as well as diuretics. He currently appears euvolemic on exam. Pt is followed by pulmonary for lung nodules. Gastroesophageal reflux disease without esophagitis Comment: I have discussed with the patient the association between the use of PPI's and CKD. He was previously taken off pantoprazole. Will d/c again. Gout: Has hyperuricemia and recently had a gout attack. Will start allopurinol 100 mg daily. This visit involved counseling and coordination of care that comprised more than 50% of the visit time. Kralee Davis MD Gps Field Data Collectorcatalogue maker Division of Nephrology & Hypertension 4.200 Thom CarterDign[facility] Hospitalex O [phone] F [phone] M [phone] E [email or web address] documented in this encounter Plan of Treatment Date Type Specialty Care Team Description 11/12/2019 Probation Counselor Visit Clinical Medical 1, Adc Lab Laboratory 01/05/2020 Appointment Cardiac Electrophysiology Pacemaker/Icd, Miles 02/08/2020 Office Visit Rheumatology Dora Hess MD [address] [place] [phone] Nicolás Daniels MD [address] [place], [place] [phone] [place], [place] [phone] 02/29/2020 Office Visit Nephrology Karlee Davis M D [address] [place] [address] 03/09/2020 Office Visit Pulmonary Disease Joaquin Martin DO [address] [place] [phone] Name Type Priority Associated Diagnoses Order S chedule BASIC METABOLIC PANEL (NA, LAB Routine CKD stage G3a/ A2, GFR Expected: 02/26/2020 K, CL, CO2, GLUCOSE, BUN, 45-59 and album in (Approximate), CREATININE, CA) creatinine ratio 30-299 E xpires: 10/25/2020 mg/g Chronic systolic congestive heart failure Albuminuria Essential hypert ension Gastroesophageal reflux disease without esophagitis Acute gout of right foot, unspecified cause URINALYSIS LAB Routine CKD stage G3a/A2, GFR Expect ed: 02/26/2020 45-59 and albumin (Approxima te), creatinine ratio 30-299 Expi res: 10/25/2020 mg/g Chronic systolic congestive heart failure Albuminuria Essential hypert ension Gastroesophageal reflux disease without esophagitis Acute gout of right foot, unspecified cause PHOSPHORUS LAB Routine CKD stage G3a/A2, GFR Expect ed: 02/26/2020 45-59 and albumin (Approxima te), creatinine ratio 30-299 Expi res: 10/25/2020 mg/g Chronic systolic congestive heart failure Albuminuria Essential hypert ension Gastroesophageal reflux disease without esophagitis Acute gout of right foot, unspecified cause MICROALBUMIN URINE LAB Routine CKD stage G3a/A2, GFR Expected: 02/26/2020 45-59 and albumin (Approxima te), creatinine ratio 30-299 Expi res: 10/25/2020 mg/g Chronic systolic congestive heart failure Albuminuria Essential hypert ension Gastroesophageal reflux disease without esophagitis Acute gout of right foot, unspecified cause URIC ACID LAB Routine CKD stage G3a/A2, GFR Expect ed: 02/26/2020 45-59 and albumin (Approxima te), creatinine ratio 30-299 Expi res: 10/25/2020 mg/g Chronic systolic congestive heart failure Albuminuria Essential hypert ension Gastroesophageal reflux disease without esophagitis Acute gout of right foot, unspecified cause CBC WITH DIFF LAB Routine CKD stage G3a/A2, GFR Expec gracie: 02/26/2020 45-59 and albumin (Approxima te), creatinine ratio 30-299 Expi res: 10/25/2020 mg/g Chronic systolic congestive heart failure Albuminuria Essential hypert ension Gastroesophageal reflux disease without esophagitis Acute gout of right foot, unspecified cause Health Maintenance Due Date Last Done Comments DTaP,Tdap,and Td Vaccines (1 - Tdap) 10/29/1951 Medicare Wellness Visit 10/29/2004 PNEUMOCOCCAL VACCINES 65+ (2 of 2 - 02/27/2008 02/26/2007 PCV13) Zoster Recombinant Vaccine (SHINGRIX) 05/03/2009 03/08/2009 (2 of 3) INFLUENZA VACCINE (#1) 2019 01/11/2011, 12/20/2009, 01/19/2007 Depression Screening 04/29/2020 04/29/2019 documented as of this encounter Results Not on filedocumented in this encounter Visit Diagnoses Diagnosis CKD stage G3a/A2, 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-59 and albumin creatinine ratio 30-299 mg/g - Primary Chronic systolic congestive heart failur e Chronic systolic heart failure Albuminuria Proteinuria Essential hypertension Unspecified essential hypertension Gastroesophageal reflux disease without esophagitis Esophageal reflux Acute gout of right foot, unspecified ca use documented in this encounter Insurance Payer Benefit Plan / Subscriber ID Effective Phone Address T ype Group Dates [facility] [id number] 2019-Kaylee olson [facility] - MEDICARE HMO MANAGED MEDICARE ADVANTAGE documented as of this encounter Advance Directives Type Date Recorded 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
--- OUTSIDE RECORDS SUMMARY | 2020-01-28 10:40 | XMS REPORT | Summary of Care ---
:1939 Author Organization [facility] Address [address] [place] [address] Care Team Providers Name Role Phone Visit, [...] Procedures CONSULT/REFERRAL RHEUMATOLOGY MD Tariq Irving MD [address] [place] [phone] Phone: Encounter Details Date Type Department Care Team Description 11/02/[address] [facility] Gabriel Saleh MD [address] [place] [phone] Gouty arthritis (Primary Dx); Rheumatology-Nicolás Strange MD [address] [place], [place] [address] [place] [phone] Hyperuricemia; [facility] Dora Hess MD [address] [place] [phone] CKD (chronic kidney disease), stage III; [address] [facility] CHF (conge stive heart failure), NYHA class I, chronic, systolic; South, Entrance B Osteoarthritis, generalized; [place], [place] [facility]; [phone] Kierra's nodes (with arthr cheli); [phone] Long-term use o f high-risk medication Allergies [...] after surgery 08/07/2016 Coronary artery disease involving [place] coronary [place] ry without angina 11/07/2015 pectoris PE (pulmonary embolism) 09/19/2011 h/o PTCA with SHIVA in 201005/16/2011 Gastroesophageal reflux disease without esophagitis Atrial thrombus 05/16/2010 Positive PPD 05/10/2010 Ischemic cardiomyopathy 05/10/2010 Systolic heart failure 05/10/2010 Other chest pain 05/01/2010 Spasm of muscle 09/29/2009 Backache 05/11/2009 Overview: ICD10 Diagnosis Term Gi Tech Utility Paroxysmal ventricular tachycardia Chronic systolic heart [...] Grijalva presents to clinic today for new [facility] (Internal) consultation visit, requested by Dr. Chai Balderrama, for evaluation for gout.He is a 79 year old /White male with past medicalhistory listed below. He presented to the ED in August following pain of his right big toe and was diagnosed with gout.He wasdischarged on colchicine 0.6 mg. He was started on allopurinol 100 mg by his medical officer .He reports that he feels good and [...] N/A 08/12/2016 Surgeon: Ad Clark MD; Location: [facility] OR Location [place] CSI ANY OTHER THAN PCI 2 YR [...] to exceed 2 g in 24 hours. 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 Dora Hess MD Rheumatology fellow Pager [phone] Nicolás Mendoza MD - 11/02/2019 9:30 AM JACKSONruth [address] Hess, I interviewed and examined the patient with Dr. Hess today in the clinic. Berto Grijalva is a 79 year old male from [place], a new patient. He is being referred [...] CABG, x 3. He sees nephrology at [facility]. 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 Visit Clinical Medical 1, [facility] Lab Laboratory 01/05/2020 Appointment Cardiac Electrophysiology Pacemaker/Icd, Miles 02/08/2020 Office Visit Rheumatology Dora Hess MD [address] [place] [phone] Nicolás Daniels MD [address] [place], [place] [phone] [place], [place] [phone] 02/29/2020 Office Visit Nephrology Karlee Davis M D [address] [place] [address] 03/09/2020 Office Visit Pulmonary Disease Joaquin Martin DO [address] [place] [address] Name Type Priority Associated Diagnoses Order S [facility]-ABC-DR TYPING LAB Routine Gouty arthritis Expecte d: 11/04/2019, X-RENAL Expires: 2020 Health Maintenance Due Date Last Done Comments DTaP,Tdap,and Td Vaccines (1 - Tdap) 10/29/1951 Medicare Wellness Visit 10/29/2004 PNEUMOCOCCAL VACCINES 65+ (2 of 2 - 02/27/2008 02/26/2007 PCV13) Zoster Recombinant Vaccine (SHINGRIX) 05/03/2009 03/08/2009 (2 of 3) INFLUENZA VACCINE (#1) 2019 01/11/2011, 12/20/2009, 01/19/2007 Depression Screening 04/29/2020 04/29/2019 documented as of this encounter Results COMP. METABOLIC PANEL (71646) (11/02/2019 10:41 AM CDT) NA 138 135 - 145 [facility] mmol/L [facility] K 5.4 (H) 3.5 - 5.0 [facility] mmol/L [facility] CL 105 98 - 108 mmol/L [facility] CO2 TOTAL 26 23 - 31 mmol/L [facility] AGAP 7 2 - 16 [facility] BUN 31 (H) 7 - 23 mg/dL [facility] GLUCOSE 110 70 - 110 mg/dL [facility] CREATININE 1.56 (H) 0.60 - 1.25 [facility] mg/dL [facility] TOTAL BILI 0.3 0.1 - 1.1 mg/dL [facility] CALCIUM 10.2 8.6 - 10.6 [facility] mg/dL [facility] T PROTEIN 7.3 6.3 - 8.2 g/dL [facility] ALBUMIN 4.3 3.5 - 5.0 g/dL [facility] ALK PHOS 83 34 - 122 U/L [facility] ALTv 37 5 - 50 U/L [facility] AST(SGOT) 45 (H) 13 - 40 U/L [facility] eGFR Calculation 43.0 mL/min/1.73m2 [facility] (Non- [facility]) [place] eGFR Calculation 52.2 mL/min/1.73m2 [facility] () [facility] Specimen Blood - ARM, LEFT Narrative Performed At Association of Glomerular Filtration Rate [facility] (GFR) and Staging of Kidney Disease* [...] tests). Performing Organization Address City/State/Zipcode Phone Number [facility] CLIA: [id number], [address] [place] [address] SERVICES-[facility] HCV ANTIBODY (11/02/2019 10:41 AM CDT) Pathologist Sig nature HCV Ab Negative [facility] HCV Semi-Quantitative 0.02 [facility] Specimen Blood - ARM, LEFT Performing Organization Address City/State/Zipcode Phone Number [facility] CLIA: [id number], [address] [place], [place] [address] [facility] documented in this encounter Visit Diagnoses Diagnosis [...] Effective Phone Address T ype Group Dates [facility] [id number] 2019-Kaylee [place] whitney [facility] HEALTHCARE - MEDICARE nt HMO MANAGED MEDICARE ADVANTAGE documented as of this encounter Advance Directives Type Date Recorded 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
--- OUTSIDE RECORDS SUMMARY | 2020-01-28 10:40 | XMS REPORT | Summary of Care ---
:1939 Author Organization [facility] Address [address] [place] [address] Care Team Providers Name Role Phone Visit, [...] Procedures CONSULT/REFERRAL RHEUMATOLOGY MD Tariq Irving MD [address] [place] [phone] Phone: Encounter Details Date Type Department Care Team Description 11/02/2019 Office Visit [facility] Gabriel Saleh MD [address] [place] [phone] Gouty arthritis (Primary Dx); Rheumatology-Nicolás Strange MD [address] [place], [place] [address] [place] [phone] Hyperuricemia; [facility] Dora Hess MD [address] [place] [phone] CKD (chronic kidney disease), stage III; [address] [facility] CHF (conge stive heart failure), NYHA class I, chronic, systolic; South, Entrance B Osteoarthritis, generalized; [place] [facility]; [phone] Kierra's nodes (with arthr cheli); [phone] Long-term use o f high-risk medication Allergies [...] after surgery 08/07/2016 Coronary artery disease involving [place] coronary dalton ry without angina 11/07/2015 pectoris PE (pulmonary embolism) 09/19/2011 h/o PTCA with SHIVA in 201005/16/2011 Gastroesophageal reflux disease without esophagitis Atrial thrombus 05/16/2010 Positive PPD 05/10/2010 Ischemic cardiomyopathy 05/10/2010 Systolic heart failure 05/10/2010 Other chest pain 05/01/2010 Spasm of muscle 09/29/2009 Backache 05/11/2009 Overview: ICD10 Diagnosis Term Banquet Lead Utility Paroxysmal ventricular tachycardia Chronic systolic heart [...] Grijalva presents to clinic today for new [facility] [[email or web address]] (Internal) consultation visit, requested by Dr. Chai Balderrama, for evaluation for gout.He is a 79 year old /White male with past medicalhistory listed below. He presented to the ED in August following pain of his right big toe and was diagnosed with gout.He wasdischarged on colchicine 0.6 mg. He was started on allopurinol 100 mg by his technology consultant .He reports that he feels good and [...] N/A 08/12/2016 Surgeon: Ad Clark MD; Location: [facility] [place] Location [place] CSI ANY OTHER THAN PCI 2 YR [...] to exceed 2 g in 24 hours. 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 Dora Hess MD Rheumatology fellow Pager [phone] Nicolás Mendoza MD - 11/02/2019 9:30 AM JACKSONruth [address] Hess, I interviewed and examined the patient with Dr. Hess today in the clinic. Berto Grijalva is a 79 year old male from [place], a new patient. He is being referred [...] CABG, x 3. He sees nephrology at [facility] [[email or web address] He is a former smoker, quitting in [...] Date Type Specialty Care Team Description 11/12/2019 Event Specialist Visit Clinical Medical 1, [facility] Lab Laboratory 01/05/2020 Appointment Cardiac Electrophysiology Pacemaker/Icd, Miles 02/08/2020 Office Visit Rheumatology Dora Hess MD [address] [place] [phone] Nicolás Daniels MD [address] [place], [place] [phone] [place], [place] [phone] 02/29/2020 Office Visit Nephrology Karlee Davis M D [address] [place] [phone] 03/09/2020 Office Visit Pulmonary Disease Joaquin Martin DO [address] [place] [phone] Health Maintenance Due Date Last Done Comments DTaP,Tdap,and Td Vaccines (1 - Tdap) 10/29/1951 Medicare Wellness Visit 10/29/2004 PNEUMOCOCCAL VACCINES 65+ (2 of 2 - 02/27/2008 02/26/2007 PCV13) Zoster Recombinant Vaccine (SHINGRIX) 05/03/2009 03/08/2009 (2 of 3) INFLUENZA VACCINE (#1) 2019 01/11/2011, 12/20/2009, 01/19/2007 Depression Screening 04/29/2020 04/29/2019 documented as of this encounter Results COMP. METABOLIC PANEL (63480) (11/02/2019 10:41 AM CDT) NA 138 135 - 145 [facility] [[email or web address]] LABORATORY mmol/L [facility] K 5.4 (H) 3.5 - 5.0 [facility] [[email or web address] LABORATORY mmol/L [facility] CL 105 98 - 108 mmol/L [email or web address] LABORATORY [facility] CO2 TOTAL 26 23 - 31 mmol/L [facility] [[email or web address] LABORATORY [facility] AGAP 7 2 - 16 [email or web address] LABORATORY [facility] BUN 31 (H) 7 - 23 mg/dL [facility] [[email or web address] LABORATORY [facility] GLUCOSE 110 70 - 110 mg/dL [facility] [[email or web address] LABORATORY [facility] CREATININE 1.56 (H) 0.60 - 1.25 [email or web address] LABORATORY mg/dL [facility] TOTAL BILI 0.3 0.1 - 1.1 mg/dL [facility] [[email or web address]] LABORATORY [facility] CALCIUM 10.2 8.6 - 10.6 [facility] [[email or web address]] LABORATORY mg/dL [facility] T PROTEIN 7.3 6.3 - 8.2 g/dL [facility] ALBUMIN 4.3 3.5 - 5.0 g/dL [facility] ALK PHOS 83 34 - 122 U/L [facility] [[email or web address] LABORATORY [facility] ALTv 37 5 - 50 U/L [facility] [[email or web address] LABORATORY [facility] AST(SGOT) 45 (H) 13 - 40 U/L [email or web address] LABORATORY [facility] eGFR Calculation 43.0 mL/min/1.73m2 [facility] [[email or web address]] LABORATORY (Non- [facility] Dutch) [place] eGFR Calculation 52.2 mL/min/1.73m2 [email or web address] LABORATORY () [facility] Specimen Blood - ARM, LEFT Narrative Performed At [facility] of Glomerular Filtration Rate [facility] (GFR) and Staging of Kidney Disease* CAMPUS [...] tests). Performing Organization Address City/State/Zipcode Phone Number [facility] [[email or web address]] LABORATORY CLIA: [id number], [address] [place] [address] [phone] [facility] HCV ANTIBODY (11/02/2019 10:41 AM CDT) Pathologist Sig nature HCV Ab Negative [facility] [[email or web address]] LABORATORY SERVICES HCV Semi-Quantitative 0.02 [facility] [[email or web address] LABORATORY SERVICES Specimen Blood - ARM, LEFT Performing Organization Address City/State/Zipcode Phone Number [facility] [[email or web address]] LABORATORY SERVICES CLIA: [id number], [address] [place], [place] [address] [facility] documented in this encounter Visit Diagnoses Diagnosis [...] Effective Phone Address T ype Group Dates [facility] [id number] 2019-Kaylee olson [facility] - MEDICARE Critical access hospitalO MANAGED MEDICARE ADVANTAGE documented as of this encounter Advance Directives Type Date Recorded Patient Flower Stripper Explanati on Advance Directives and Living Will Power of Facility Specialist"
--- OUTSIDE RECORDS SUMMARY | 2020-01-28 10:41 | XMS REPORT | Summary of Care ---
:1939 Author Organization [facility] Address [address] [place] [address] Care Team Providers Name Role Phone Visit, Adc Nurse Unavailable Unavailable Katelynn Nichols MD Unavailable Outpatient, Ccl Unavailable Unavailable 1, Vas Rm Unavailable Unavailable Angulo, E Primary Care Provider Reason for Visit Reason Comments LAB WORK Auth/Cert Status Reason Specialty Diagnoses / Procedures Referred By Olinda bose Referred To Contact Phlebotomy Diagnoses Chronic combined systolic and diastolic heart failure, NYHA class 2 [facility] Pob Lab Draw Procedures [facility] Professional Office Building [address] [facility] , [address] [place] [address] Phone: Fax: Encounter Details Date Type Department Care Team Description 11/12/2019 Gauntlet Pairer Visit [facility] Chai Balderrama MD [address] [place] [address] Chronic combined Phlebotomy 1, [facility] Lab systolic and [facility] diastolic heart [address] [facility] failure, N YHA class [address] [place] [address] Allergies Active Allergy Reactions Severity Noted Date Comments Enalapril Cough 05/04/2010 documented as of this encounter (statuses as of 11/12/2019) Medications Medication Sig Dispensed Refills Start Date [...] as of this encounter (statuses as of 11/12/2019) Active Problems Problem Noted Date Acute gout [...] after surgery 08/07/2016 Coronary artery disease involving [place] coronary dal[place] ry without angina 11/07/2015 pectoris PE (pulmonary embolism) 09/19/2011 h/o PTCA with SHIVA in 201005/16/2011 Gastroesophageal reflux disease without esophagitis Atrial thrombus 05/16/2010 Positive PPD 05/10/2010 Ischemic cardiomyopathy 05/10/2010 Systolic heart failure 05/10/2010 Other chest pain 05/01/2010 Spasm of muscle 09/29/2009 Backache 05/11/2009 Overview: ICD10 Diagnosis Term 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 documented as of this encounter Last Filed Vital Signs Not on filedocumented in this encounter Plan of Treatment Date Type Specialty Care Team Description 01/05/2020 Appointment Cardiac Electrophysiology Pacemaker/Icd, Miles 02/08/2020 Office Visit Rheumatology Dora Hess MD [address] [place] [phone] Nicolás Daniels MD [address] [id number] [place], [place] [phone] 02/29/2020 Office Visit Nephrology Karlee Davis M D [address] [place] [phone] 03/09/2020 Office Visit Pulmonary Disease Joaquin Martin DO [address] [place] [phone] Name Type Priority Associated Diagnoses Date/Ti me BASIC METABOLIC PANEL LAB Routine Chronic combined 9:07 AM CDT (66305)(NA, K, CL, CO2, systolic and meade tolic GLUCOSE, BUN, heart failure, NYHA CREATININE, CA) class 2 N-TERMINAL PRO-BNP LAB Routine Chronic combined 11/11 9:07 AM CDT systolic and diastolic heart failure, NYHA class 2 Health Maintenance Due [...] and diastolic heart failure, NYHA class 2 documented in this encounter Insurance Payer Benefit Plan / Subscriber ID Effective Phone Address T ype Group Dates TUCKER YEHUDA/LOUIE [id number] 2019-Prese Me olson [facility] - MEDICARE HMO MANAGED MEDICARE ADVANTAGE documented as of this encounter Advance Directives Type Date Recorded Patient Director Payer Explanati on Advance Directives and Living Will Power of Correspondence Section Supervisor
--- OUTSIDE RECORDS SUMMARY | 2020-01-28 10:41 | XMS REPORT | Summary of Care ---
:1939 Author Organization [address] [address] Care Team Providers Name Role Phone Visit, Adc Nurse Unavailable Unavailable Katelynn Nichols MD Unavailable Outpatient, Ccl Unavailable Unavailable 1, Vas Rm Unavailable Unavailable Tony Angulo Primary Care Provider Reason for Visit Reason Comments Orders LAB WORK 02.08.20 Appointment 02.15.20 Encounter Details Date Type Department Care Team Description 12/06/2019 Telephone [facility] Nephrology- Karlee Davis MD Orders; LAB WORK [address] (02.08.20); Appointment [facility] [place], [place] (02.15.20) [address] [place] [address], [address] [place] [address] [place], [place] [phone] (Fax) [phone] Allergies Active Allergy Reactions Severity Noted Date Comments Enalapril Cough 05/04/2010 documented as of this encounter (statuses as of 12/06/2019) Medications Medication Sig Dispensed Refills Start Date [...] as of this encounter (statuses as of 12/06/2019) Active Problems Problem Noted Date Acute gout [...] after surgery 08/07/2016 Coronary artery disease involving [place] coronary dal[place] ry without angina 11/07/2015 pectoris PE (pulmonary embolism) 09/19/2011 h/o PTCA with SHIVA in 201005/16/2011 Gastroesophageal reflux disease without esophagitis Atrial thrombus 05/16/2010 Positive PPD 05/10/2010 Ischemic cardiomyopathy 05/10/2010 Systolic heart failure 05/10/2010 Other chest pain 05/01/2010 Spasm of muscle 09/29/2009 Backache 05/11/2009 Overview: ICD10 Diagnosis Term 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 documented as of this encounter Last Filed Vital Signs Not on filedocumented in this encounter Miscellaneous Notes Telephone Encounter - Marilu Jackson RN - 12/06/2019 1:23 PM CDTWill order labs and send reminder closer to appointment. elephone Encounter - Shyla Marin - 12/06/2019 11:56 AM Cesario Grijalva is scheduled as follows: Ryan follow-up: 02/15/20 at 10AM Labs: 02/08/20 at 10:30 AM Please review and order any necessary labs. documented in this encounter Plan of Treatment Date Type Specialty Care Team Description 01/05/2020 Appointment Cardiac Electrophysiology Pacemaker/Icd, Clc 02/08/2020 Office Visit Rheumatology Dora Hess MD [address] [place] [phone] Nicolás Daniels MD [address] [place], [place] [phone] [place], [place] [phone] 02/08/2020 Health Education Specialist Visit Phlebotomy Karlee Davis MD [address] [place] [phone] Vtc-Lab 02/15/2020 Office Visit Nephrology Karlee Davis M D [address] [place] [phone] 03/02/2020 Office Visit Pulmonary Disease Joaquin Martin, [address] [place] [phone] Health Maintenance Due Date Last Done Comments DTaP,Tdap,and Td Vaccines (1 - Tdap) 10/29/1959 Medicare Wellness Visit 10/29/2004 Zoster Recombinant Vaccine (SHINGRIX) 05/03/2009 03/08/2009 (2 of 3) INFLUENZA VACCINE (#1) 2019 01/11/2011, 12/20/2009, 01/19/2007 Depression Screening 04/29/2020 04/29/2019 PNEUMOCOCCAL VACCINES 65+ Completed 02/26/2007 documented as of this encounter Results Not on filedocumented in this encounter Insurance Payer Benefit Plan / Subscriber ID Effective Phone Address T ype Group Dates SEMORA YEHUDA/LOUIE [id number] 2019-Kaylee olson [facility] HEALTHCARE - MEDICARE HMO MANAGED MEDICARE ADVANTAGE documented as of this encounter Advance Directives Type Date Recorded 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
--- OUTSIDE RECORDS SUMMARY | 2020-01-28 10:41 | XMS REPORT | Summary of Care ---
:1939 Author Organization [facility] Address [address] [place] [address] Care Team Providers Name Role Phone Visit, Adc Nurse Unavailable Unavailable Katelynn Nichols MD Unavailable Outpatient, Ccl Unavailable Unavailable 1, Vas Rm Unavailable Unavailable Kev E Primary Care Provider Reason for Visit Reason Comments Orders Encounter Details Date Type Department Care Team Description 12/16/2019 Telephone [facility] Cardiology, Chai Balderrama MD Orders [address], [address] [place] [address] Floor [phone] [place] [phone] Allergies Active Allergy Reactions Severity Noted Date Comments Enalapril Cough 05/04/2010 documented as of this encounter (statuses as of 12/19/2019) Medications Medication Sig Dispensed Refills Start Date [...] as of this encounter (statuses as of 12/19/2019) Active Problems Problem Noted Date Acute gout [...] after surgery 08/07/2016 Coronary artery disease involving [place] coronary dalton ry without angina 11/07/2015 pectoris PE (pulmonary embolism) 09/19/2011 h/o PTCA with SHIVA in 201005/16/2011 Gastroesophageal reflux disease without esophagitis Atrial thrombus 05/16/2010 Positive PPD 05/10/2010 Ischemic cardiomyopathy 05/10/2010 Systolic heart failure 05/10/2010 Other chest pain 05/01/2010 Spasm of muscle 09/29/2009 Backache 05/11/2009 Overview: ICD10 Diagnosis Term 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 Thanks elephone Encounter - Erma Villalobos RN - 12/17/2019 12:03 PM CDTSpoke with Zeny /Dr Acevedo/[phone]. She stated clearance form Faxed to [phone]/ office no fax has been forwarded, provided [facility] fax #. She was asking to stop Plavix 3d prior to FME scheduled for next week Review of MAR/chart has the Plavix DC 08/16/17, advised takes 81mg ASA only. She advised called patient today and family was not sure. Suggested call to pharmacy to see if the patient has had a recent fill of the medication in case an outside provide has prescribed that would not reflect on our records Advised discussed with provider and will review chart for clearance if verbal is acceptable will call, if signed form is needed will complete and return when received elephone Encounter - Nelida Mccoy - 12/16/2019 3:24 PM CDTLandrew Grijalva is a 79 year old male Ame with Dr Wetzel Is calling requesting written clearance for patient to be off of Plavix for 3days prior to surgery. Patient is scheduled for surgery soon and clearance needs to be received ASAPtomorrow morning or surgery will be canceled. Please call Ame at [phone]. Fax is [phone]. documented in this encounter Plan of Treatment Date Type Specialty Care Team Description 01/05/2020 Appointment Cardiac Electrophysiology Pacemaker/Icd, Clc 02/08/2020 Office Visit Rheumatology Dora Hess MD [address] [place] [phone] Nicolás Daniels MD [address] [place], [place] [phone] [place], [place] [phone] 02/08/2020 Supervisor Felling Bucking Visit Phlebotomy Karlee Davis MD [address] [place] [phone] Vtc-Lab 02/15/2020 Office Visit Nephrology Karlee Davis M D [address] [place] [phone] 03/02/2020 Office Visit Pulmonary Disease Joaquin Martin DO [address] [place] [phone] Health Maintenance Due Date Last Done Comments [...] Group Dates [facility] [id number] 2019-Kaylee olson [facility] HEALTHCARE - MEDICARE HMO MANAGED MEDICARE ADVANTAGE documented as of this encounter Advance Directives Type Date Recorded Patient Clipping Marker Explanati on Advance Directives and Living Will Power of Aquatic Physiotherapist
--- OUTSIDE RECORDS SUMMARY | 2020-01-28 10:41 | XMS REPORT | Summary of Care ---
:1940 Author Organization [facility] - Health Address [address] [place] [address] Care Team Providers Name Role Phone Visit, Adc Nurse Unavailable Unavailable Katelynn Nichols MD Unavailable Outpatient, Ccl Unavailable Unavailable 1, Vas Rm Unavailable Unavailable Kev E Primary Care Provider Reason for Visit Reason Comments Blood Draw Encounter Details Date Type Department Care Team Description 11/02/2019 Mechanical Inspector Visit LAB SERVICES AT [facility] Gelacio Saleh MD [address] [place] [phone] Gouty arthritis; MULTISPECIALTY Nicolás Riley MD [address] [place], [place] [phone] [place], [place] [phone] Chronic combined systolic and diastolic heart failure, NYHA class 2; 26[address] [facility] Stage 3 [place] [address] Allergies Active Allergy Reactions Severity Noted Date Comments Enalapril Cough 05/04/2010 documented as of this encounter (statuses as of 11/05/2019) Medications Medication Sig Dispensed Refills Start Date [...] as of this encounter (statuses as of 11/05/2019) Active Problems Problem Noted Date Acute gout [...] after surgery 08/07/2016 Coronary artery disease involving igiugig coronary dalton ry without angina 11/07/2015 pectoris PE (pulmonary embolism) 09/19/2011 h/o PTCA with SHIVA in 201005/16/2011 Gastroesophageal reflux disease without esophagitis Atrial thrombus 05/16/2010 Positive PPD 05/10/2010 Ischemic cardiomyopathy 05/10/2010 Systolic heart failure 05/10/2010 Other chest pain 05/01/2010 Spasm of muscle 09/29/2009 Backache 05/11/2009 Overview: ICD10 Diagnosis 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 Utility Paroxysmal ventricular tachycardia Chronic systolic heart failure HLD (hyperlipidemia) Essential hypertension documented as of this encounter (statuses as of 11/05/2019) Immunizations Name Administration Dates Next Due Influenza [...] Date Type Specialty Care Team Description 11/12/2019 Mechanical Inspector Visit Clinical Medical 1, Adc Lab Laboratory 01/05/2020 Appointment Cardiac Electrophysiology Pacemaker/Icd, Miles 02/08/2020 Office Visit Rheumatology Dora Hess MD [address] [place] [phone] Nicolás Daniels MD [address] [id number] [place] [address] 02/29/2020 Office Visit Nephrology Karlee Davis M D [address] [place] [phone] 03/09/2020 Office Visit Pulmonary Disease Joaquin Martin, [address] [place] [phone] Health Maintenance Due Date Last [...] Gouty arthritis Re sults for this PANEL (45568) CDT procedure are in the results section. documented in this encounter Results N-TERMINAL PRO-BNP (11/02/2019 10:41 AM CDT) Pathologist Sig nature NT-proBNP 937 (H) <=450 pg/mL [facility] Specimen Blood - ARM, LEFT Narrative Performed At Biotin has been reported to cause a [facility] negative bias, interpret results relative to patient's use of biotin. Performing Organization Address City/State/[facility] Service Unitcode Phone Number [facility] CLIA: [id number], [address] [place] [address] [phone] [facility] HCV ANTIBODY (11/02/2019 10:41 AM CDT) Pathologist Sig nature HCV Ab Negative [facility] HCV Semi-Quantitative 0.02 [facility] Specimen Blood - ARM, LEFT Performing Organization Address City/[facility]/Zipcode Phone Number [facility] CLIA: [id number], [address] [place], [place] [address] COMP. METABOLIC PANEL (99380) (11/02/2019 10:41 AM CDT) NA 138 135 - 145 [facility] mmol/L [facility] K 5.4 (H) 3.5 - 5.0 [facility] mmol/L [facility] CL 105 98 - 108 mmol/L [facility] CO2 TOTAL 26 23 - 31 mmol/L [facility] AGAP 7 2 - 16 [facility] BUN 31 (H) 7 - 23 mg/dL [facility] GLUCOSE 110 70 - 110 mg/dL [facility] CREATININE 1.56 (H) 0.60 - 1.25 [facility] mg/dL [facility] TOTAL BILI 0.3 0.1 - 1.1 mg/dL [facility] CALCIUM 10.2 8.6 - 10.6 [facility] mg/dL [facility] T PROTEIN 7.3 6.3 - 8.2 g/dL [facility] ALBUMIN 4.3 3.5 - 5.0 g/dL [facility] ALK PHOS 83 34 - 122 U/L [facility] ALTv 37 5 - 50 U/L [facility] AST(SGOT) 45 (H) 13 - 40 U/L [facility] eGFR Calculation 43.0 mL/min/1.73m2 [facility] (Non-[facility]) [place] eGFR Calculation 52.2 mL/min/1.73m2 [facility] () [facility] Specimen Blood - ARM, LEFT Narrative Performed At Association of Glomerular Filtration Rate RUST (GFR) and Staging of Kidney Disease* [place] + + --+ + | GFR (mL/min/1.73 [...] tests). Performing Organization Address City/State/Zipcode Phone Number [facility] CLIA: [id number], [address] [place] [address] SERVICES-[facility] documented in this encounter Visit Diagnoses Diagnosis Gouty arthritis Gouty arthropathy, unspecified Chronic combined systolic and diastolic heart failure, NYHA class 2 Stage 3 chronic kidney disease documented in this encounter Insurance Payer Benefit Plan / Subscriber ID Effective Phone Address T ype Group Dates [facility] [id number] 2019-Kaylee olson [facility] - MEDICARE HMO MANAGED MEDICARE ADVANTAGE documented as of this encounter Advance Directives Type Date Recorded Patient Tester Waste Disposal Leakage Explanati on Advance Directives and Living Will Power of Menu Planner"
--- OUTSIDE RECORDS SUMMARY | 2020-01-28 10:41 | XMS REPORT | Summary of Care ---
:1940 Author Organization [facility] Address [address] [place] [address] Care Team Providers Name Role Phone Visit, [...] Procedures CONSULT/REFERRAL RHEUMATOLOGY MD Tariq Irving MD [address] [place] [phone] Phone: Encounter Details Date Type Department Care Team Description 11/02/2019 Office Visit [facility] Gabriel Saleh MD [address] [place] [phone] Gouty arthritis (Primary Dx); Rheumatology-Nicolás Strange MD [address] [place], [place] [address] [place] [phone] Hyperuricemia; [facility] Dora Hess MD [address] [place] [phone] CKD (chronic kidney disease), stage III; 26[address] [facility] CHF (conge stive heart failure), NYHA class I, chronic, systolic; [place], Entrance B Osteoarthritis, generalized; [place], [place] [facility]; [phone] Kierra's nodes (with arthr cheli); [phone] Long-term use o f high-risk medication Allergies [...] after surgery 08/07/2016 Coronary artery disease involving [place] coronary dalton ry without angina 11/07/2015 pectoris PE (pulmonary embolism) 09/19/2011 h/o PTCA with SHIVA in 201005/16/2011 Gastroesophageal reflux disease without esophagitis Atrial thrombus 05/16/2010 Positive PPD 05/10/2010 Ischemic cardiomyopathy 05/10/2010 Systolic heart failure 05/10/2010 Other chest pain 05/01/2010 Spasm of muscle 09/29/2009 Backache 05/11/2009 Overview: ICD10 Diagnosis 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 Chai Balderrama, for evaluation for gout.He is a 79 year old /White male with past medicalhistory listed below. He presented to the ED in August following pain of his right big toe and was diagnosed with gout.He wasdischarged on colchicine 0.6 mg. 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 CHF Comment : follows up with cardiology Plan : continue to f/u with cardiology Return in about 3 months (around 02/02/2020) for follow up . Dora Hess MD Rheumatology fellow Pager [phone] Nicolás Mendoza MD - 11/02/2019 9:30 AM [place] [address] Hess, I interviewed and examined the patient with Dr. Hess today in the clinic. Berto Grijalva is a 79 year old male from [place], a new patient. He is being referred [...] CABG, x 3. He sees nephrology at [facility]. He is a former smoker, quitting in [...] Date Type Specialty Care Team Description 11/12/2019 Social Service Liaison Visit Clinical Medical 1, [facility] Lab Laboratory 01/05/2020 Appointment Cardiac Electrophysiology Pacemaker/Icd, Miles 02/08/2020 Office Visit Rheumatology Dora Hess MD [address] [place] [phone] Nicolás Daniels MD [address] [id number] [place] [address] 02/29/2020 Office Visit Nephrology Karlee Davis M D [address] [place] [phone] 03/09/2020 Office Visit Pulmonary Disease Joaquin Martin, [address] [place] [phone] Name Type Priority Associated Diagnoses Order S [facility] HLA-ABC-DR TYPING LAB Routine Gouty arthritis Expecte [...] of this encounter Results COMP. METABOLIC PANEL ([id number]) (11/02/2019 10:41 AM CDT) NA 138 135 - 145 [facility] mmol/L [facility] K 5.4 (H) 3.5 - 5.0 [facility] mmol/L [facility] CL 105 98 - 108 mmol/L [facility] CO2 TOTAL 26 23 - 31 mmol/L [facility] AGAP 7 2 - 16 [facility] BUN 31 (H) 7 - 23 mg/dL [facility] GLUCOSE 110 70 - 110 mg/dL [facility] CREATININE 1.56 (H) 0.60 - 1.25 [facility] mg/dL [facility] TOTAL BILI 0.3 0.1 - 1.1 mg/dL [facility] CALCIUM 10.2 8.6 - 10.6 [facility] mg/dL [facility] T PROTEIN 7.3 6.3 - 8.2 g/dL [facility] ALBUMIN 4.3 3.5 - 5.0 g/dL [facility] ALK PHOS 83 34 - 122 U/L [facility] ALTv 37 5 - 50 U/L [facility] AST(SGOT) 45 (H) 13 - 40 U/L [facility] eGFR Calculation 43.0 mL/min/1.73m2 [facility] (Non- [facility] Citizen Of [place]) [facility] eGFR Calculation 52.2 mL/min/1.73m2 [facility] () [facility] Specimen Blood - ARM, LEFT Narrative Performed At Association of Glomerular Filtration Rate [facility] (GFR) and Staging of Kidney Disease* CAMPUS [...] tests). Performing Organization Address City/State/Zipcode Phone Number [facility] CLIA: [id number], [address] [place] [address] SERVICES-[facility] HCV ANTIBODY (11/02/2019 10:41 AM CDT) Pathologist Sig nature HCV Ab Negative [facility] HCV Semi-Quantitative 0.02 [facility] Specimen Blood - ARM, LEFT Performing Organization Address City/State/Zipcode Phone Number [facility] CLIA: [id number], [address] [place], [place] [address] 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
[2020-01-28] MEDS ORDERED: MORPHINE 2 MG/ML SYR ONE (11:15)
[2020-01-28] MEDS ORDERED: ONDANSETRON 4 MG/2 ML VIAL ONE ×2 (11:15→14:15)
[2020-01-28 11:33] LABS: Absolute Lymphocytes (CBC) 0.8 K/uL (0.7-4.9); Basophils % 0.4 % (0-1.3); Lymphocytes % 5.7 % (15.3-44.8); MPV 10.1 fL (7.6-11.3); RBC Red Blood Cell Count 4.17 M/uL (4.33-5.43)
[2020-01-28 11:52] LABS: Albumin 3.6 g/dL (3.4-5.0); Bilirubin Direct 0.2 mg/dL (0-0.2); Bilirubin Total 0.7 mg/dL (0.2-1.0); Potassium 4.3 mmol/L (3.5-5.1); Protein, Total 7.3 g/dL (6.4-8.2)
[2020-01-28 12:03] LABS: Urine Blood NEGATIVE (NEG); Urine Glucose TRACE (NEG); Urine Protein 2+ (NEG)
[2020-01-28 12:05] LABS: Blood Morphology Comment NOT SEEN (NOT SEEN); Platelet Estimate ADEQ
--- NOTE | 2020-01-28 12:24 | RAD REPORT ---
EXAM DESCRIPTION: CT - Abdomen Pelvis Wo Contrast - 01/28/2020 11:53 am CLINICAL HISTORY: Abdominal pain. right sided abdominal pain COMPARISON: No comparisons TECHNIQUE: CT imaging of the abdomen and pelvis was performed without contrast. Solid organ, bowel a nd vascular assessment is limited due to lack of IV and oral contrast. All CT scans are performed using dose optimization technique as appropriate and may include automated exposure control or mA/KV adjustment according to patient size. FINDINGS: The lower lung clark are clear. The liver, spleen, pancreas, adrenal glands and kidneys are within normal limits for a limited non-co ntrast examination. No bowel obstruction, free air, free fluid or abscess. The appendix is dilated to 12 mm with surroun ding inflammation compatible with acute appendicitis. Orthopedic hardware is present lower lumbar spine. IMPRESSION: Acute appendicitis. A limited non-contrast examination was performed as detailed.
--- NOTE | 2020-01-28 12:45 | EDPHYS ---
Physician Documentation [facility] Name: Berto Grijalva Jr Age: 79 yrs Sex: Male : 1940 Arrival Date: 01/28/2020 Time: 10:29 Bed 4 Private MD: David Angulo E ED Physician Jc Hernandez HPI: 01/27 11:00 This 79 yrs old Male presents to ER via Ambulatory with complaints of jmm abdominal pain. 11:00 The patient presents with abdominal pain in the right upper quadrant, right lower jmm quadrant. Onset: The symptoms/episode began/occurred gradually, 1 day(s) ago. The symptoms do not radiate. Associated signs and symptoms: Pertinent negatives: fever, vomiting. The symptoms are described as achy. Modifying factors: The symptoms are alleviated by nothing, the symptoms are aggravated by nothing. Historical: - Allergies: 10:40 VENLAFAXINE; ll1 - PMHx: 10:40 Hypertension; Hyperlipidemia; ll1 - PSHx: 10:40 triple bypass; pacemaker; ll1 - Immunization history:: Flu vaccine is up to date. - Social history:: Smoking status: Patient/guardian denies using tobacco, the patient reports quitting approximately 35 years ago. ROS: 11:00 Constitutional: Negative for fever, chills, and weight loss, Cardiovascular: Negative jmm for chest pain, palpitations, and edema, Respiratory: Negative for shortness of breath, cough, wheezing, and pleuritic chest pain. 11:00 Abdomen/GI: Positive for abdominal pain. 11:00 All other systems are negative. Exam: 11:00 Constitutional: This is a well developed, well nourished patient who is awake, alert, jmm and in no acute distress. Head/Face: atraumatic. Eyes: EOMI, no conjunctival erythema appreciated ENT: Moist Mucus Membranes Neck: Trachea midline, Supple Chest/axilla: Normal chest wall appearance and motion. Cardiovascular: Regular rate and rhythm. No edema appreciated Respiratory: Normal respirations, no respiratory distress appreciated Abdomen/GI: Non distended, soft 11:00 Abdomen/GI: Inspection: abdomen appears normal, Bowel sounds: normal, Palpation: moderate abdominal tenderness, in the right upper quadrant and right lower quadrant. 11:00 Back: ROM is 11:00 Musculoskeletal/extremity: ROM: intact in all extremities. 11:00 Skin: Appearance: Color: 11:00 Neuro: Motor: is normal. 11:00 Psych: Behavior/mood is pleasant, cooperative. Vital Signs: 10:36 BP 110 / 64; Pulse 93; Resp 17; Temp 99.5; Pulse Ox 100% ; Weight 56.7 kg; Height 5 ft. ll1 2 in. (157.48 cm); Pain 7/10; 11:18 BP 116 / 50; Pulse 87; Resp 16; Pulse Ox 97% on R/A; tw2 12:20 BP 106 / 50; Pulse 84; Resp 17 S; Pulse Ox 95% on R/A; jd3 13:07 BP 111 / 53; Pulse 87; Resp 17; Pulse Ox 98% on R/A; tw2 10:36 Body Mass Index 22.86 (56.70 kg, 157.48 cm) ll1 MDM: 10:59 Patient medically screened. [facility] 12:43 Data reviewed: vital signs, nurses notes. Counseling: I had a detailed discussion with [facility] the patient and/or guardian regarding: the historical points, exam findings, and any diagnostic results supporting the discharge/admit diagnosis, radiology results, the need for further work-up and treatment in the hospital. ED course: I discussed the patient with Dr. Atwood and Dr. Sue whom accepted admission. . 10 10:52 Order name: Basic Metabolic Panel; Complete Time: 12:02 [facility] 01/27 10:52 Order name: CBC with Diff; Complete Time: 12:09 [facility] 01/27 10:52 Order name: Hepatic Function; Complete Time: 12:02 [facility] 01/27 10:52 Order name: Lipase; Complete Time: 12:02 [facility] 01/27 11:29 Order name: Procalcitonin [facility] 01/27 11:29 Order name: Lactate; Complete Time: 12:33 [facility] 01/27 11:29 Order name: Blood Culture Adult (2) [facility] 01/27 11:43 Order name: Abdomen ; Complete Time: 12:27 [facility] 01/27 11:44 Order name: Manual Differential; Complete Time: 12:09 [facility] 01/27 11:52 Order name: Urine Dipstick--Ancillary (enter results); Complete Time: 12:09 01/27 12:43 Order name: Troponin (emerg Dept Use Only) [facility] 01/27 12:43 Order name: Chest Single View XRAY [facility] 01/27 10:52 Order name: IV Saline Lock; Complete Time: 11:18 [facility] 01/27 10:52 Order name: Labs collected and sent; Complete Time: 11:18 [facility] 01/27 10:52 Order name: Urine Dipstick-Ancillary (obtain specimen); Complete Time: 11:33 [facility] 01/27 12:43 Order name: EKG - Nurse/Tech; Complete Time: 13:06 [facility] Administered Medications: 11:10 Drug: morphine 2 mg Route: IVP; Site: left antecubital; tw2 12:19 Follow up: Response: No adverse reaction; Marked relief of symptoms; Pain is decreased em 11:12 Drug: Zofran (Ondansetron) 4 mg Route: IVP; Site: left antecubital; tw2 12:19 Follow up: Response: No adverse reaction em 12:17 Drug: Cefepime 1 grams Route: IVPB; Rate: 200 ml/hr; Infused Over: 30 mins; Site: left em antecubital; 12:55 Follow up: Response: No adverse reaction; IV Status: Completed infusion tw2 12:55 Drug: Zosyn 3.375 grams Route: IVPB; Infused Over: 60 mins; Site: left antecubital; tw2 13:06 Follow up: IV Status: Infusion continued upon admission tw2 Disposition: 01/28/20 12:45 Hospitalization ordered by Prince Ewa for Inpatient Admission. Preliminary diagnosis is Acute appendicitis. - Bed requested for Operating Room. - Status is Inpatient Admission. tw2 - Condition is Stable. - Problem is new. - Symptoms are unchanged. Addendum: 01/29/2020 18:03 Co-signature as Attending Physician, Jc Hernandez MD I agree with the assessment and c quintero plan of care. Signatures: Dispatcher [employer] Jc Maurice MD MD cha Mickail, Joel, PA PA Marc Cartagena, RN RN em Jazmyn Turk RN RN tw2 Maria Elena Kelly RN RN ll1 Corrections: (The following items were deleted from the chart) 01/27 11:43 11:00 Abdomen Pelvis W Con+CT.RAD.BRZ ordered. [facility] EDMS 13:08 12:45 Hospitalization Ordered by Prince Ewa ZULETA for Inpatient Admission. Preliminary tw2 diagnosis is Acute appendicitis. Bed requested for Operating Room. Status is Inpatient Admission. Condition is Stable. Problem is new. Symptoms are unchanged. vijay
--- NOTE | 2020-01-28 12:45 | ER ---
Nurse's Notes [facility] Name: Berto Grijalva Jr Age: 79 yrs Sex: Male : 1940 Arrival Date: 01/28/2020 Time: 10:29 Bed 4 Private MD: David Angulo E Diagnosis: Acute appendicitis Presentation: 01/27 10:36 Chief complaint: Patient states: Right sided abdominal pain with slight dysuria since ll1 last night. + chills, noticed urine is dark orange in color. No N/V/D. Coronavirus screen: Client denies travel out of the [place] in the last 14 days. At this time, the client does not indicate any symptoms associated with coronavirus-19. Ebola Screen: Patient denies travel to an Ebola-affected area in the 21 days before illness onset. Initial Sepsis Screen: Does the patient meet any 2 criteria? HR > 90 bpm. No. Patient's initial sepsis screen is negative. Does the patient have a suspected source of infection? Yes: Acute abdominal pain. Risk Assessment: Do you want to hurt yourself or someone else? Patient reports no desire to harm self or others. Onset of symptoms was January 27, 2020. 10:36 Method Of Arrival: Ambulatory ll1 10:36 Acuity: EVELYNE 3 ll1 Historical: - Allergies: 10:40 VENLAFAXINE; ll1 - PMHx: 10:40 Hypertension; Hyperlipidemia; ll1 - PSHx: 10:40 triple bypass; pacemaker; ll1 - Immunization history:: Flu vaccine is up to date. - Social history:: Smoking status: Patient/guardian denies using tobacco, the patient reports quitting approximately 35 years ago. Screenin:07 Abuse screen: Denies threats or abuse. Nutritional screening: No deficits noted. tw2 Tuberculosis screening: No symptoms or risk factors identified. Fall Risk Secondary diagnosis (15 points) impaired mobility. Assessment: 11:05 General: Appears in no apparent distress. comfortable, Behavior is calm, cooperative, em appropriate for age, Denies fever. Pain: Complains of pain in right lower quadrant and right upper quadrant Pain currently is 7 out of 10 on a pain scale. Pain began 1 day ago. Neuro: Level of Consciousness is awake, alert, obeys commands, Oriented to person, place, time, situation, Appropriate for age. Cardiovascular: Capillary refill < 3 seconds Patient's skin is warm and dry. Respiratory: Airway is patent Respiratory effort is even, unlabored, Respiratory pattern is regular, symmetrical. GI: Abdomen is flat, Bowel sounds present X 4 quads. Abd is soft and non tender X 4 quads. Patient currently denies nausea, vomiting. Derm: Skin is intact, is healthy with good turgor, Skin is pink, warm \T\ dry. Musculoskeletal: Capillary refill < 3 seconds, Range of motion: intact in all extremities. 11:39 Reassessment: pt taken to CT at this time via stretcher. tw2 12:00 Reassessment: Patient appears in no apparent distress at this time. No changes from tw2 previously documented assessment. Patient and/or family updated on plan of care and expected duration. Pain level reassessed. Patient is alert, oriented x 3, equal unlabored respirations, skin warm/dry/pink. 13:06 Reassessment: Patient appears in no apparent distress at this time. No changes from tw2 previously documented assessment. Patient and/or family updated on plan of care and expected duration. Pain level reassessed. Patient is alert, oriented x 3, equal unlabored respirations, skin warm/dry/pink. Vital Signs: 10:36 BP 110 / 64; Pulse 93; Resp 17; Temp 99.5; Pulse Ox 100% ; Weight 56.7 kg; Height 5 ft. ll1 2 in. (157.48 cm); Pain 7/10; 11:18 BP 116 / 50; Pulse 87; Resp 16; Pulse Ox 97% on R/A; tw2 12:20 BP 106 / 50; Pulse 84; Resp 17 S; Pulse Ox 95% on R/A; jd3 13:07 BP 111 / 53; Pulse 87; Resp 17; Pulse Ox 98% on R/A; tw2 10:36 Body Mass Index 22.86 (56.70 kg, 157.48 cm) ll1 ED Course: 10:29 Patient arrived in ED. mr 10:30 David Angulo MD is Private Physician. mr 10:38 Triage completed. ll1 10:41 Arm band placed on Patient placed in an exam room, on a stretcher. ll1 10:52 Jensen Li PA is PHCP. [facility] 10:52 Jc Hernandez MD is Attending Physician. [facility] 10:58 Marc Sinclair, RN is Primary Nurse. em 10:58 Placed in gown. Bed in low position. Side rails up X2. oracle dba on. Pulse ox on. tw2 NIBP on. 11:10 Inserted saline lock: 20 gauge in left antecubital area, using aseptic technique. Blood tw2 collected. 11:54 Abdomen In Process Unspecified. EDMS 12:44 Prince Mcneil MD is Hospitalizing Provider. [facility] 13:07 No provider procedures requiring assistance completed. Patient admitted, IV remains in tw2 place. Administered Medications: 11:10 Drug: morphine 2 mg Route: IVP; Site: left antecubital; tw2 12:19 Follow up: Response: No adverse reaction; Marked relief of symptoms; Pain is decreased em 11:12 Drug: Zofran (Ondansetron) 4 mg Route: IVP; Site: left antecubital; tw2 12:19 Follow up: Response: No adverse reaction em 12:17 Drug: Cefepime 1 grams Route: IVPB; Rate: 200 ml/hr; Infused Over: 30 mins; Site: left em antecubital; 12:55 Follow up: Response: No adverse reaction; IV Status: Completed infusion tw2 12:55 Drug: Zosyn 3.375 grams Route: IVPB; Infused Over: 60 mins; Site: left antecubital; tw2 13:06 Follow up: IV Status: Infusion continued upon admission tw2 Outcome: 12:45 Decision to Hospitalize by Provider. [facility] 13:07 Admitted to OR accompanied by nurse, via stretcher, with chart, Report called to tw2 TYREE Montoya 13:07 Condition: stable 13:07 Instructed on the need for admit. 13:08 Patient left the ED. tw2 Signatures: Dispatcher [employer] EDMS Jensen Li PA PA jmMar Ventura Marc Sinclair, RN Jazmyn Irving RN RN tw2 Maldonado Chávez RN RN jd3 Lewis, Lynsay, RN RN ll1
[2020-01-28] MEDS ORDERED: PIPER/TAZO/NS 3.375gm 3.375 GM/100 ML BAG ONE (12:54)
--- NOTE | 2020-01-28 12:56 | P.HP ---
Certification for Inpatient Patient admitted to: Inpatient With expected LOS: >2 Midnights Practitioner: I am a practitioner with admitting privileges, knowledge of patient current condition, hospital course, and medical plan of care. Services: Services provided to patient in accordance with Admission requirements found in Title 42 Section 412.3 of the Code of Federal Regulations Patient History Date of Service: 01/28/20 Reason for admission: right sided abdominal pain History of Present Illness: Patient is a 79 year old male with a PMH of HTN, CAD s/p CABG s/p PCI and CABGx3 in 2018, possible CHF s/p AICD. He presents with presents with right sided abdominal pain that started the day before admission. His sx are worsened with ambulation or any movement. He denies fever, endorses some chills. He also denies any diarrhea. Work up in the ER revealed acute appendicitis. Surgery has been consulted for appendectomy. Allergies venlafaxine [From Effexor] Adverse Reaction (Verified 06/16/17 09:02) nightmares Home Medications: Aspirin [Aspirin EC 81 MG] 81 mg PO DAILY 06/16/17 Dabigatran Etexilate Mesylate [Pradaxa*] 75 mg PO BID 06/16/17 Furosemide [Lasix*] 40 mg PO DAILY 06/16/17 Losartan Potassium [Cozaar*] 50 mg PO [id number] 06/16/17 Pantoprazole [Protonix Tab*] 40 mg PO DAILY 06/16/17 Pravastatin Sodium 40 mg PO DAILY 06/16/17 carvediloL [Coreg*] 6.25 mg PO BID 06/16/17 Physical Examination - Physical Exam General: Cooperative, Mild distress HEENT: Atraumatic, Normocephalic, EOMI Neck: Supple Respiratory: Clear to auscultation bilaterally, Normal air movement Cardiovascular: No edema, Normal pulses, Regular rate/rhythm, Normal S1 S2, Other (AICD in place) Musculoskeletal: No clubbing, No swelling, No contractures, No erythema, No tenderness, No warmth Integumentary: No rashes, No breakdown, No significant lesion, No tenderness/swelling, No erythema, No warmth, No cyanosis Neurological: Normal speech, Sensation intact, Normal affect - Studies Laboratory Data (last 24 hrs) 01/28/20 11:10: WBC 14.4 H, Hgb 13.1 L, Hct 40.0, Plt Count 138 L 01/28/20 11:10: Sodium 137, Potassium 4.3, BUN 26 H, Creatinine 1.79 H, Glucose 104, Total Bilirubin 0.7, AST 31, ALT 33, Alkaline Phosphatase 83, Lipase 124 Assessment and Plan - Problems (Diagnosis) (1) Acute appendicitis Current Visit: Yes Status: Acute (2) Coronary artery disease Current Visit: Yes Status: Acute (3) CHF (congestive heart failure) Current Visit: Yes Status: Acute (4) Hypertension Current Visit: Yes Status: Acute (5) CKD (chronic kidney disease) stage 3, GFR 30-59 ml/min Current Visit: Yes Status: Acute (6) Possible urinary tract infection Current Visit: Yes Status: Acute - Advance Directives Does patient have a Living Will: Yes Does patient have a Durable POA for Healthcare: No Physician Review Additional Text: Assessment 79 year old male with extensive cardiovascular history admitted with acute appendicitis. Meets SIRS criteria Acute appendicitis Possible UTI CAD S/P PCI, CABG x 3 Possible CHF CKD stage III PLAN Admit inpatient with telemetry Surgery taking patient to OR Continue zosyn perioperatively Follow up blood and urine cultures Follow up 2-D echo for risk stratification
[2020-01-28] MEDS ORDERED: ROCURONIUM 50 MG/5 ML VIAL IV ONE (13:22)
[2020-01-28] MEDS ORDERED: propofoL 200 MG/20 ML VIAL IV ONE (13:22)
[2020-01-28] MEDS ORDERED: FENTANYL CITR 100 MCG/2 ML ONE (13:22)
[2020-01-28] MEDS ORDERED: LIDOCAINE 1% MPF 5 ML VIAL ONE (13:22)
[2020-01-28] MEDS ORDERED: NA CHLORIDE 0.9% 0 ML ONE (13:23)
[2020-01-28] MEDS ORDERED: Ringers Lactate 1,000 ML IV ONE (13:23)
--- NOTE | 2020-01-28 13:24 | RAD REPORT ---
EXAM DESCRIPTION: RAD - Chest Single View - 01/28/2020 1:16 pm CLINICAL HISTORY: preop, acute appendicitis COMPARISON: March 2014 TECHNIQUE: AP portable chest image was obtained 01/28/2020 1:16 pm . FINDINGS: Lungs are clear. Heart and vasculature are normal. No measurable pleural effusion and no p neumothorax. No acute bony abnormality seen. No acute aortic finding. Since prior imaging sternotomy wires have been placed. Left-sided pacemaker/ defibrillator in place. IMPRESSION: No acute cardiopulmonary process.
[2020-01-28] MEDS ORDERED: BUPIVACA 0.25%/EPI 0.0005%/PF 30 ML VIAL ONE (13:27)
[2020-01-28] MEDS ORDERED: SUCCINYLCHOLINE 20 MG/ML (10 ML) IV ONE (13:28)
[2020-01-28] MEDS ORDERED: Ringers Lactate 1,000 ML IV SCH (13:32)
[2020-01-28] MEDS ORDERED: Phenylephrine HCl 10 MG/ML 1 ML VIAL ONE (13:59)
[2020-01-28] MEDS ORDERED: NS 0.9% VIAL 10 ML ONE (13:59)
[2020-01-28] MEDS ORDERED: KETOROLAC 30 MG/ML INJ ONE (14:15)
[2020-01-28] MEDS ORDERED: NEOSTIGMINE 1 MG/ML -5 ML ONE (14:15)
[2020-01-28] MEDS ORDERED: GLYCOPYRROLATE 0.2 MG/ML SYR ONE (14:15)
--- NOTE | 2020-01-28 14:21 | P.OP ---
Preoperative diagnosis: Acute Appendicitis Postoperative diagnosis: Acute Appendicitis Primary procedure: Laparoscopic Appendectomy Anesthesia: GETA + Local Estimated blood loss: <5 Specimen: Vermiform Appendix Findings: Non-Perforated appendicitis Complications: None Transferred to: Recovery Room Condition: Good
[2020-01-28] MEDS ORDERED: dexAMETHasone 4 MG/ML VIAL ONE (14:24)
[2020-01-28 15:34] VITALS: BMI 22.8
[2020-01-28] MEDS ORDERED: CODEINE 30MG/APAP 300MG TAB PO PRN (16:08)
[2020-01-28] MEDS: NA CHLORIDE 0.9% 1,000 ML IV SCH (16:24)
[2020-01-28] MEDS: INSULIN -REGULAR HUMAN 50 UNIT/0.5 ML ML SQ SCH ×2 (16:30→20:56)
[2020-01-28] MEDS ORDERED: PIPER/TAZO/NS 3.375gm 3.375 GM/100 ML BAG IVPB SCH (17:00)
--- NOTE | 2020-01-28 18:06 | CON ---
Date of Consultation: 01/28/2020 Brief History Of Present Illness: Patient is an 79-year-old male who is a somewhat poor his brianna, who presents with approximately 1-day history of abdominal pain in the epigastric and periumb ilical region, now radiating to the right lower quadrant. He has never had similar episodes before i n the past. No sick contacts. No recent travel. No any food exposures. The pain continued to get worse. It is sharp, stabbing, and localized to the right lower quadrant at this point. No other all eviating factors, aggravated by movement, touch, pressure, and coughing. He has had no nausea or vom iting. No change in bowel or bladder habits. No fever or chills, by his description. Past Medical History: Significant for coronary artery disease, hypertension, hyperlipidemia, cardiac arrhythmia, slipped disks in his back multiple times. Past Surgical History: Includes multivessel CABG, pacemaker/AICD placement, multiple spinal fusions and back surgeries, and cataract surgery. Review of Systems: Ten-point review of systems other than HPI denies. Physical Examination: Vital Signs: At the time of my examination, his blood pressure 110/64, pulse 93, respirations 17, te mperature 99.5, pulse oximetry 100% on room air. He is 5 feet and 1 inch, 56 kg. General: He is awake, alert, oriented, but a poor historian. Psychiatric: He is appropriate conversive and he answers questions appropriately. HEENT: Otherwise, normocephalic. Sclerae anicteric. Mucous members are moist. Oropharynx clear. Neck: Supple. No JVD. Chest: Normal expansion and excursion. Cardiovascular: Regular rate and rhythm. Pulmonary: Clear to auscultation bilaterally. Abdomen: Soft with positive right lower quadrant focal peritonitis and tenderness at McBurney point. Positive focal peritoneal signs are evident. Positive psoas sign on the right. Extremities: No clubbing, cyanosis, or edema. Skin: Warm, dry. Laboratory Data: Reveals white blood count of 14.4, hemoglobin 13.9, hematocrit of 40.0, platelet co unt is 138. His neutrophils 88%. His sodium 137, potassium 4.3, chloride 105, carbon dioxide 27, BU N 26, creatinine 1.7, glucose is 104, lactic acid 0.9, total bilirubin 0.7, direct bilirubin 0.2, AST 31, ALT 33, alkaline phosphatase is 83. Procal is pending. Lipase is 124. UA showed 3+ leukocyte esterase and protein positive in the urine. He had a CT scan performed of abdomen and pelvis officia lly read as acute appendicitis and not limited contrast examination was performed. The appendix is d ilated 12 mm with surrounding inflammation compatible with acute appendicitis. Assessment And Plan: This is an 79-year-old male who presents with signs symptoms of acute nonperfor ated appendicitis. 1.IV fluids hydration. 2.Antibiotic coverage with Zosyn. 3.I have explained the risks, benefits, and alternatives of laparoscopic possible open appendectomy including, but not limited to, bleeding, infection, damage to surrounding tissue, need for further op erative procedures. The patient agrees to proceed as indicated. ERAN/KARY Voice ID: [id number] Report ID: [id number]
[2020-01-28] MEDS ORDERED: ATORVASTATIN 10 MG TAB PO SCH (21:00)
[2020-01-28] MEDS ORDERED: carvediloL 6.25 MG TAB PO SCH (21:00)
--- NOTE | 2020-01-28 23:39 | OP ---
Date of Procedure: 01/28/2020 Surgeon: Hossein Atwood MD, Preoperative Diagnosis: Acute appendicitis. Postoperative Diagnosis: Acute appendicitis. Procedure Performed: Laparoscopic appendectomy. Anesthesia: General endotracheal plus local with 0.5% Marcaine with epinephrine. Estimated Blood Loss: Less than 5 mL. Specimen: Vermiform appendix. Findings: Nonperforated appendicitis. Complications: None. Disposition: Transferred to recovery room in good condition. Procedure In Detail: After informed consent was obtained, the patient was brought to the operating r oom, prepped and draped in the usual sterile fashion. After adequate anesthesia was achieved, an inf raumbilical area was anesthetized with 0.25% Marcaine, sharply and a 5 mm trocar was introduced into the abdomen without evidence of complication. Two additional trocars were chosen, 1 in the right upp er quadrant, 1 in the left lower quadrant, and these were similarly anesthetized and sharply incised, and a 5 mm trocar was introduced in the abdomen without evidence of complication. Insufflation was obtained and maximized at this point with 15 mmHg. The patient was positioned head down and right si de up position. The umbilical trocar was then up-sized to a 12 mm trocar under direct visualization. Ratcheted grasper was used to grasp the patient's appendix, was found to be in the right lower quad rant in a retrocecal position. It was flipped out and found to be quite inflamed with significant in flammatory changes, but no obvious perforation. There was necrosis to the midportion of the appendix , but no obvious feculent peritonitis or suppurative changes. Mesoappendiceal was created with a Mar y[place] retractor. Endo ASHLEIGH 35 blue load fired across the base the appendix with good approximation of tissues. The LigaSure device was then used to take the mesoappendix down without evidence of compli cation. Good hemostasis was achieved. The appendix was then placed in EndoCatch bag, removed the um bilical trocar, sent off for pathologic examination. The area was copiously irrigated multiple times until completely clear. The staple line was found to be in good anatomic position. No additional h emostatic maneuvers required. The patient was positioned back in neutral position. After all efflue nt was suctioned out and the umbilical trocar was removed, the umbilical trocar site was closed using a Servando-Zacarias suture passer with 0 Vicryl in interrupted fashion with good approximation of tiss ues. The abdomen was completely desufflated under direct visualization without any evidence of compl ication. The remaining trocars removed. All skin incisions were copiously irrigated and closed with 4-0 Monocryl in a running fashion. Dermabond placed over top. The patient tolerated the procedure well without any evidence of complication and transferred to PACU in good condition. All counts were correct at the end of the case. ERAN/KARY Voice ID: [id number] Report ID: [id number]
[2020-01-29] MEDS: NA CHLORIDE 0.9% 1,000 ML IV SCH ×2 (01:25→04:20)
[2020-01-29 05:40] VITALS: O2SAT 96
[2020-01-29] MEDS ORDERED: LOSARTAN POTASSIUM 50 MG TABLET PO SCH (06:00)
[2020-01-29 06:46] LABS: Magnesium 1.8 mg/dL (1.8-2.4); Phosphorus 2.5 mg/dL (2.5-4.9); Potassium 4.6 mmol/L (3.5-5.1)
[2020-01-29 07:08] LABS: Absolute Lymphocytes (CBC) 0.9 K/uL (0.7-4.9); Basophils % 0.1 % (0-1.3); Hematocrit 34.2 % (39.6-49.0); Lymphocytes % 5.6 % (15.3-44.8); RBC Red Blood Cell Count 3.58 M/uL (4.33-5.43)
[2020-01-29] MEDS ORDERED: PANTOPRAZOLE 40MG TABLET PO SCH (07:30)
--- NOTE | 2020-01-29 08:53 | P.DS ---
Admission Date: 01/28/20 Discharge Date: 01/29/20 Disposition: ROUTINE DISCHARGE Discharge Condition: GOOD Reason for Admission: right sided abdominal pain - Problems (1) Acute appendicitis Current Visit: Yes Status: Acute (2) Coronary artery disease Current Visit: Yes Status: Acute (3) CHF (congestive heart failure) Current Visit: Yes Status: Acute (4) Hypertension Current Visit: Yes Status: Acute (5) CKD (chronic kidney disease) stage 3, GFR 30-59 ml/min Current Visit: Yes Status: Acute (6) Possible urinary tract infection Current Visit: Yes Status: Acute Brief History of Present Illness: Patient is a 79 year old male with a PMH of HTN, CAD s/p CABG s/p PCI and CABGx3 in 2018, possible CHF s/p AICD. He presents with presents with right sided abdominal pain that started the day before admission. His sx are worsened with ambulation or any movement. He denies fever, endorses some chills. He also denies any diarrhea. Work up in the ER revealed acute appendicitis. Surgery has been consulted for appendectomy. Hospital Course: Patient underwent laparoscopic appendectomy. He tolerated the procedure well. Seen post postoperatively this morning. He is tolerating a regular diet without complications. He has been medically cleared for discharge. Vital Signs/Physical Exam: Temp Pulse Resp BP Pulse Ox 97.8 F 63 17 101/52 L 96 01/29/20 04:00 01/29/20 04:00 01/29/20 04:00 01/29/20 04:00 01/29/20 04:00 General: Alert, In no apparent distress, Cooperative HEENT: Atraumatic, Normocephalic, EOMI Neck: Supple Respiratory: Clear to auscultation bilaterally, Normal air movement Cardiovascular: No edema, Normal pulses, Regular rate/rhythm, Normal S1 S2, Other (AICD) Gastrointestinal: Normal bowel sounds, Soft and benign, Non-distended Musculoskeletal: No clubbing, No swelling, No contractures, No erythema, No tenderness, No warmth Integumentary: No rashes, No breakdown, No significant lesion, No tend erness/swelling, No erythema, No warmth, No cyanosis Neurological: Normal speech, Sensation intact, Normal affect Laboratory Data at Discharge: WBC 16.2 K/uL (4.3-10.9) H 01/29/20 06:04 Hgb 11.4 g/dL (13.6-17.9) L 01/29/20 06:04 Hct 34.2 % (39.6-49.0) L 01/29/20 06:04 Plt Count 119 K/uL (152-406) L 01/29/20 06:04 Sodium 132 mmol/L (136-145) L 01/29/20 06:04 Potassium 4.6 mmol/L (3.5-5.1) 01/29/20 06:04 BUN 28 mg/dL (7-18) H 01/29/20 06:04 Creatinine 1.60 mg/dL (0.55-1.3) H 01/29/20 06:04 Glucose 121 mg/dL (74-106) H 01/29/20 06:04 Phosphorus 2.5 mg/dL (2.5-4.9) 01/29/20 06:04 Magnesium 1.8 mg/dL (1.8-2.4) 01/29/20 06:04 Total Bilirubin 0.7 mg/dL (0.2-1.0) 01/28/20 11:10 AST 31 U/L (15-37) 01/28/20 11:10 ALT 33 U/L (12-78) 01/28/20 11:10 Alkaline Phosphatase 83 U/L (45-117) 01/28/20 11:10 Lipase 124 U/L (73-393) 01/28/20 11:10 Home Medications: Aspirin [Aspirin EC 81 MG] 81 mg PO DAILY 06/16/17 Dabigatran Etexilate Mesylate [Pradaxa*] 75 mg PO BID 06/16/17 Furosemide [Lasix*] 40 mg PO DAILY 06/16/17 Losartan Potassium [Cozaar*] 50 mg PO [id number] 06/16/17 Pantoprazole [Protonix Tab*] 40 mg PO DAILY 06/16/17 Pravastatin Sodium 40 mg PO DAILY 06/16/17 carvediloL [Coreg*] 6.25 mg PO BID 06/16/17 Diet: Regular Activity: No lifting more than 10 lbs Followup: Hossein Atwood MD [ACTIVE - CAN ADMIT] -
[2020-01-29] MEDS ORDERED: MAGNESIUM SULFATE 1 gm IVPB 1 GM/100 ML BAG IV ONE (09:00)
[2020-01-29] MEDS ORDERED: POTASS/SODIUM PHOSPHATE 1 PKT POWD.PACK PO SCH (09:00)
[2020-01-29] MEDS ORDERED: ENOXAPARIN 30 MG/0.3 ML SQ SCH (09:00)
[2020-01-29] MEDS ORDERED: HOME MED 1 EA UNK (Pravastatin Sodium [Pravastatin Sodium] 40 MG) PO SCH (09:00)
[2020-01-29] MEDS ORDERED: ASPIRIN EC 81 MG TAB PO SCH (09:00)
[2020-01-29 10:11] VITALS: BP 127/61; TEMP 97.2
--- NOTE | 2020-01-31 07:48 | EKG ---
Test Date: 2020-01-28 Test Time: 13:07:27 Car Hostler: IVONE MEASUREMENT RESULTS: Intervals: Rate: 83 TN: 156 QRSD: 82 QT: 360 QTc: 423 [place]: P: 24 TN: 156 QRS: 9 T: 212 INTERPRETIVE STATEMENTS: Sinus rhythm with frequent premature ventricular complexes Possible Left atrial enlargement T wave abnormality, consider inferior ischemia T wave abnormality, consider anterolateral ischemia Abnormal ECG Compared to ECG 05/25/2010 09:17:57 No significant changes Electronically Signed On 01-31-20 07:44:16 CDT by Daniel Palacios
== END 2020-01-29 09:56 | disposition home or self-care (01) | DRG 342 ==
LOC: ER 10:25 → ERHOLD 12:43 → 2ND 14:08
PROVIDERS: ADMIT Internal Medicine; ATTEND Internal Medicine
PROC: 0DTJ4ZZ Resection of Appendix, Percutaneous Endoscopic Approach (ICD-10-PCS; principal; 2020-01-28 13:00)
DX: K35.80 Unspecified acute appendicitis (principal); I13.0 Hypertensive heart and chronic kidney disease with heart failure and stage 1 through stage 4 chronic kidney disease, or unspecified chronic kidney disease; R65.10 Systemic inflammatory response syndrome (SIRS) of non-infectious origin without acute organ dysfunction; N39.0 Urinary tract infection, site not specified; I50.9 Heart failure, unspecified; N18.30 Chronic kidney disease, stage 3 unspecified; E78.5 Hyperlipidemia, unspecified; I25.10 Atherosclerotic heart disease of native coronary artery without angina pectoris; Z87.891 Personal history of nicotine dependence; Z95.1 Presence of aortocoronary bypass graft; Z95.810 Presence of automatic (implantable) cardiac defibrillator; Z88.8 Allergy status to other drugs, medicaments and biological substances; Z79.82 Long term (current) use of aspirin; Z79.899 Other long term (current) drug therapy; Z20.828 Contact with and (suspected) exposure to other viral communicable diseases
CPT/HCPCS: 36415; 71045; 74176; 80048; 80076; 81003; 82947; 83036; 83605; 83690; 83735; 84100; 84145; 84484; 85025; 87040; 88304; 93005; 94010; 96365; 96375; 99285; J0330; J1100; J1650; J2270; J2370; J2405; J2543; J2704; J2710; J3010; J3475; J7030; J7120; U0002

== ENCOUNTER 2020-10-06 21:35 | Observation (INO) | payer MEDICARE ==
--- OUTSIDE RECORDS SUMMARY | 2020-10-06 21:38 | XMS REPORT | Continuity of Care Document ---
:1940 Author Organization [facility] t Address [address] [place] [address] Care Team Providers Name Role Phone Bernardo Holcomb MD Attending Clinician [phone] Eber RN, L Attending Clinician Unavailable Antione ZULETA Attending Clinician Maile SRINIVASAN Attending Clinician Yaya SANCHEZ Attending Clinician Doctor Unassigned, Name Attending Clinician Unavailable Ryan ZULETA Attending Clinician Yaya SANCHEZ Admitting Clinician Problems This patient has no known problems. Allergies, Adverse Reactions, Alerts This patient has no known allergies or adverse reactions. Medications This patient has no known medications. Procedures This patient has no known procedures. Encounters Start End Encounter Admission Attending Care Care Encounter Source Date/Time Date/Time Type Type Clinicians Facility Department ID 2020-09-20 2020-09-20 Telephone Bella Davis [id number] 00:00:00 00:00:00 Boby Ruiz [id number] Bernardo gu and [id number] Adult [id number] Primary 059 [facility] 2020-09-05 2020-09-05 Transition Dee Velázquez [id number] 00:00:00 00:00:00 of Care Kathryn Martinez [id number] [place] [id number] 2020-09-03 2020-09-04 Emergency Antione Jordon [facility] [id number] 14:09:00 14:40:00 Jonatan Gr [id number] Dwight Javier [id number] [place] [id number] 2020-09-03 2020-09-03 Orders Doctor MICHELLE [id number] 00:00:00 00:00:00 Only Unassigned, BONNIE [id number] [facility] [id number] 2020-08-15 2020-08-15 Office STANFORD Davis [id number] 09:22:34 10:41:17 Visit [facility] [id number] CLINICS [id number] Results This patient has no known results.
[2020-10-06] MEDS ORDERED: LEVALBUTEROL 1.25 MG/3 ML NEB ONE (23:04)
[2020-10-06 23:09] LABS: Absolute Lymphocytes (CBC) 1.6 K/uL (0.7-4.9); Hematocrit 39.7 % (39.6-49.0); Lymphocytes % 26.2 % (15.3-44.8); RBC Red Blood Cell Count 4.15 M/uL (4.33-5.43)
[2020-10-06 23:16] LABS: Protime INR 1.08
[2020-10-06 23:28] LABS: ALT/SGPT 30 U/L (12-78); AST/SGOT 30 U/L (15-37); Albumin 3.5 g/dL (3.4-5.0); Alkaline Phosphatase 82 U/L (45-117); BUN Blood Urea Nitrogen 20 mg/dL (7-18); Bicarbonate 23 mmol/L (21-32); Bilirubin Direct < 0.1 mg/dL (0-0.2); Bilirubin Total 0.2 mg/dL (0.2-1.0); Glucose Level 79 mg/dL (74-106); Magnesium 2.3 mg/dL (1.8-2.4); NT PRO-BNP 1984 pg/mL (<450); Potassium 4.2 mmol/L (3.5-5.1); Protein, Total 7.3 g/dL (6.4-8.2); Sodium Level 145 mmol/L (136-145); Troponin (Emerg Dept Use Only) 0.36 ng/mL (0.0-0.045)
[2020-10-07] MEDS ORDERED: ASPIRIN 81 MG CHEWABLE TABLET ONE (00:26)
--- NOTE | 2020-10-07 00:33 | ER ---
Nurse's Notes [facility] Name: Berto Grijalva Jr Age: 79 yrs Sex: Male : 1940 Arrival Date: 10/06/2020 Time: 21:40 Bed 7 Private MD: Diagnosis: Acute upper respiratory infection, unspecified;Elevated Troponin Presentation: 10/06 21:41 Chief complaint: Spouse and/or significant other states: Productive cough x 1 week. ca1 Been on antibiotics for 3 days. No relief. tonight, been coughing a lot and he has trouble breathing with episodes of coughing. Coronavirus screen: Client denies travel out of the [place] in the last 14 days. cough unrelated to allergies, shortness of breath, Client presents with at least one sign or symptom that may indicate coronavirus-19. Standard/surgical mask placed on the client. Provider contacted for isolation considerations. Ebola Screen: Patient negative for fever greater than or equal to 101.5 degrees Fahrenheit, and additional compatible Ebola Virus Disease symptoms Patient denies exposure to infectious person. Patient denies travel to an Ebola-affected area in the 21 days before illness onset. No symptoms or risks identified at this time. Initial Sepsis Screen: Does the patient meet any 2 criteria? No. Patient's initial sepsis screen is negative. Does the patient have a suspected source of infection? No. Patient's initial sepsis screen is negative. Risk Assessment: Do you want to hurt yourself or someone else? Patient reports no desire to harm self or others. Onset of symptoms was October 06, 2020. 21:41 Method Of Arrival: Ambulatory ca1 21:41 Acuity: EVELYNE 3 ca1 Triage Assessment: 22:09 General: Appears in no apparent distress. Behavior is calm, cooperative. Respiratory: ak2 Reports cough that is Onset: The symptoms/episode began/occurred gradually, the patient has mild shortness of breath. Historical: - Allergies: 21:44 VENLAFAXINE; ca1 - PMHx: 21:44 Hyperlipidemia; Hypertension; Pacemaker; ca1 - PSHx: 21:44 triple bypass; pacemaker; ca1 - Immunization history:: Client reports receiving the 2nd dose of the Covid vaccine, Client reports receiving the 1st dose of the Covid vaccine, Pneumococcal vaccine is up to date, Flu vaccine is up to date. - Social history:: Smoking status: Patient/guardian denies using tobacco, the patient reports quitting approximately 20 years ago. Screenin:08 Abuse screen: Denies threats or abuse. Denies injuries from another. Nutritional ak2 screening: No deficits noted. Tuberculosis screening: No symptoms or risk factors identified. Fall Risk None identified. Assessment: 22:09 Pain: Denies pain. Cardiovascular: Rhythm is regular. Respiratory: Airway. ak2 22:09 Respiratory: Respiratory effort is even, unlabored, Breath sounds are clear bilaterally.ak2 10/07 01:42 General: report called to rn. ak2 Vital Signs: 10/06 21:41 BP 135 / 62; Pulse 83; Resp 22 S; Temp 97.3(TE); Pulse Ox 98% on R/A; Weight 53.52 kg ca1 (R); Height 5 ft. 1 in. (154.94 cm) (R); Pain 0/10; 23:02 BP 126 / 60; Pulse 80; Resp 18; Pulse Ox 100% on R/A; ak2 10/07 01:28 BP 114 / 59; Pulse 66; Resp 18; Pulse Ox 100% on R/A; ak2 10/06 21:41 Body Mass Index 22.30 (53.52 kg, 154.94 cm) ca1 ED Course: 10/06 21:40 Patient arrived in ED. ca1 21:43 Triage completed. ca1 21:44 Arm band placed on right wrist. ca1 22:02 Jensen Li PA is PHCP. jmm 22:02 Saurav Patterson MD is Attending Physician. jmm 22:02 Nadir Beltre is Primary Nurse. ak2 22:03 Nadir Beltre is Primary Nurse. ak2 22:08 Patient has correct armband on for positive identification. ak2 22:08 No provider procedures requiring assistance completed. ak2 22:56 XRAY Chest (1 view) In Process Unspecified. EDMS 23:23 Warm blanket given. Pillow given. Verbal reassurance given. Head of bed lowered. jp3 residential monitor on. Pulse ox on. NIBP on. 10/07 00:31 Noa Alfaro MD is Hospitalizing Provider. [facility] Administered Medications: 10/06 22:57 Drug: Xopenex (levalbuterol) (3) 1.25 mg Route: Inhalation; ak2 10/07 00:08 Drug: Aspirin Chewable Tablet 324 mg Route: PO; ak2 01:04 Drug: Rocephin (cefTRIAXone) 1 grams Route: IV; Rate: calculated rate; Site: left ak2 antecubital; Outcome: 00:32 Decision to Hospitalize by Provider. vijay 01:42 Admitted to Tele ak2 01:42 Condition: good 02:06 Patient left the ED. ak2 Signatures: Dispatcher [employer] EDMS Jensen Li PA PA jmm Pisarski, Jacob 3 Marley Fields, RN RN Nadir Green ak2
--- NOTE | 2020-10-07 00:33 | EDPHYS ---
Physician Documentation [facility] Name: Berto Grijalva Jr Age: 79 yrs Sex: Male : 1940 Arrival Date: 10/06/2020 Time: 21:40 Bed 7 Private MD: ED Physician Saurav Patterson HPI: 10/06 22:18 This 79 yrs old Male presents to ER via Ambulatory with complaints of jmm Productive Cough. 22:18 The patient or guardian reports cough. Onset: The symptoms/episode began/occurred jmm gradually, 3 day(s) ago. Modifying factors: The symptoms are alleviated by nothing, the symptoms are aggravated by nothing. Associated signs and symptoms: Pertinent negatives: chest pain, fever. This is an 79 year old male with a history of HLP, HTN, CHF, CAD that presents to the ED with complaints of cough, shortness of breath, beginning approx 3 days ago. Grandchildren have similar symptoms. Denies chest pain. Historical: - Allergies: 21:44 VENLAFAXINE; ca1 - PMHx: 21:44 Hyperlipidemia; Hypertension; Pacemaker; ca1 - PSHx: 21:44 triple bypass; pacemaker; ca1 - Immunization history:: Client reports receiving the 2nd dose of the Covid vaccine, Client reports receiving the 1st dose of the Covid vaccine, Pneumococcal vaccine is up to date, Flu vaccine is up to date. - Social history:: Smoking status: Patient/guardian denies using tobacco, the patient reports quitting approximately 20 years ago. ROS: 22:18 Constitutional: Negative for fever, chills, and weight loss, Cardiovascular: Negative jmm for chest pain, palpitations, and edema. 22:18 Respiratory: Positive for cough, shortness of breath. 22:18 All other systems are negative. Exam: 22:18 Constitutional: This is a well developed, well nourished patient who is awake, alert, jmm and in no acute distress. Head/Face: atraumatic. Eyes: EOMI, no conjunctival erythema appreciated ENT: Moist Mucus Membranes Neck: Trachea midline, Supple Chest/axilla: Normal chest wall appearance and motion. Cardiovascular: Regular rate and rhythm. No edema appreciated 22:18 Abdomen/GI: Non distended, soft Back: Normal ROM Skin: General appearance color normal MS/ Extremity: Moves all extremities, no obvious deformities appreciated, no edema noted to the lower extremities Neuro: Awake and alert, normal gait Psych: Behavior is normal, Mood is normal, Patient is cooperative and pleasant 22:18 Respiratory: the patient does not display signs of respiratory distress, Respirations: normal, Breath sounds: wheezing: that is mild, is scattered. Vital Signs: 21:41 BP 135 / 62; Pulse 83; Resp 22 S; Temp 97.3(TE); Pulse Ox 98% on R/A; Weight 53.52 kg ca1 (R); Height 5 ft. 1 in. (154.94 cm) (R); Pain 0/10; 23:02 BP 126 / 60; Pulse 80; Resp 18; Pulse Ox 100% on R/A; ak2 10/07 01:28 BP 114 / 59; Pulse 66; Resp 18; Pulse Ox 100% on R/A; wa2 10/06 21:41 Body Mass Index 22.30 (53.52 kg, 154.94 cm) ca1 MDM: 10/06 22:18 Patient medically screened. [facility] 10/07 00:31 Data reviewed: vital signs, nurses notes. Counseling: I had a detailed discussion with [facility] the patient and/or guardian regarding: the historical points, exam findings, and any diagnostic results supporting the discharge/admit diagnosis, lab results, radiology results, the need for further work-up and treatment in the hospital. ED course: I discussed the patient with Vick Swartz whom accepted the patient for admission. . 10/06 22:19 Order name: Basic Metabolic Panel [facility] 10/06 22:19 Order name: CBC with Diff; Complete Time: 23:33 [facility] 10/06 22:19 Order name: LFT's; Complete Time: 23:55 [facility] 10/06 22:19 Order name: Magnesium; Complete Time: 23:55 [facility] 10/06 22:19 Order name: NT PRO-BNP; Complete Time: 23:55 [facility] 10/06 22:19 Order name: PT-INR; Complete Time: 23:33 [facility] 10/06 22:19 Order name: Troponin (emerg Dept Use Only); Complete Time: 23:55 [facility] 10/06 22:26 Order name: Procalcitonin; Complete Time: 23:55 [facility] 10/06 22:26 Order name: Lactate; Complete Time: 23:55 [facility] 10/06 22:26 Order name: Blood Culture Adult (2) [facility] 10/06 22:26 Order name: Flu [facility] 10/06 22:41 Order name: Basic Metabolic Panel; Complete Time: 23:55 [facility] 10/07 00:53 Order name: SARS-COV-2 RT PCR [facility] 10/06 22:19 Order name: XRAY Chest (1 view) [facility] 10/06 22:19 Order name: Cardiac monitoring [facility] 10/06 22:19 Order name: IV Saline Lock [facility] 10/06 22:19 Order name: Labs collected and sent [facility] 10/06 22:19 Order name: O2 Per Protocol [facility] 10/06 22:19 Order name: O2 Sat Monitoring [facility] 10/06 23:56 Order name: EKG - Nurse/Tech [facility] Administered Medications: 10/06 22:57 Drug: Xopenex (levalbuterol) (3) 1.25 mg Route: Inhalation; ak2 10/07 00:08 Drug: Aspirin Chewable Tablet 324 mg Route: PO; ak2 01:04 Drug: Rocephin (cefTRIAXone) 1 grams Route: IV; Rate: calculated rate; Site: left ak2 antecubital; Disposition: 06:39 Co-signature as Attending Physician, Saurav Patterson MD. [facility] Disposition: 10/07/20 00:32 Hospitalization ordered by Noa Alfaro for Observation. Preliminary diagnosis are Acute upper respiratory infection, unspecified, Elevated Troponin. - Bed requested for Telemetry/MedSurg (observation). - Status is Observation. ak2 - Condition is Stable. - Problem is an acute exacerbation. - Symptoms have improved. Signatures: Dispatcher [employer] [facility] Kiya Person RN RN Jensen Li PA PA jmm Acob, Cheryl, RN RN [facility] Saurav Patterson MD MD [facility] Nadir Beltre [facility] Corrections: (The following items were deleted from the chart) 10/06 23:19 22:42 CORONAVIRUS+LAB.BRZ ordered. [facility] 10/07 01:29 00:32 Hospitalization Ordered by Noa Alfaro MD for Observation. Preliminary mw diagnosis is Acute upper respiratory infection, unspecified; Elevated Troponin. Bed requested for Telemetry/MedSurg (observation). Status is Observation. Condition is Stable. Problem is an acute exacerbation. Symptoms have improved. lidia 02:06 01:29 10/07/2020 00:32 Hospitalization Ordered by Noa Alfaro MD for Observation. ak2 Preliminary diagnosis is Acute upper respiratory infection, unspecified; Elevated Troponin. Bed requested for Telemetry/MedSurg (observation). Status is Observation. Condition is Stable. Problem is an acute exacerbation. Symptoms have improved. mw
[2020-10-07] MEDS ORDERED: CEFTRIAXONE/SWI 1gm 1 GM/10 ML SYR ONE (01:10)
[2020-10-07] MEDS ORDERED: NA CHLORIDE 0.9% 100 ML ONE (01:10)
--- NOTE | 2020-10-07 01:57 | P.HP ---
Certification for Inpatient Patient admitted to: Observation With expected LOS: <2 Midnights Patient will require the following post-hospital care: None Practitioner: I am a practitioner with admitting privileges, knowledge of patient current condition, hospital course, and medical plan of care. Services: Services provided to patient in accordance with Admission requirements found in Title 42 Section 412.3 of the Code of Federal Regulations Patient History Date of Service: 10/07/20 Primary Care Provider: Kev Reason for admission: acs r/o History of Present Illness: Mr. Grijalva is an 79 yo M with CAD s/p CABGx3, CHF s/p AICD, HTN, HLD here today with 7 days of weakness, cough productive of thick yellow sputum, SOB, wheezing, and pleuritic pain. Cough worse with trying to talk. Relief of symptoms with robitussin and thu's vapor rub. Decreased appetite, but fluid intake has been good. Denies night sweats, chills, N/V/D. Was prescribed a Zpack and Tessalon Perles from PCP on with no improvement of symptoms. Former smoker. BUN 20 Cr 1.47 GFR 46. Trop 0.36. BNP 1984. procal and lactate wnl. Allergies venlafaxine [From Effexor] Adverse Reaction (Verified 06/16/17 09:02) nightmares Home Medications: Aspirin [Aspirin EC 81 MG] 81 mg PO DAILY 06/16/17 Dabigatran Etexilate Mesylate [Pradaxa*] 75 mg PO BID 06/16/17 Furosemide [Lasix*] 40 mg PO DAILY 06/16/17 Losartan Potassium [Cozaar*] 50 mg PO [id number] 06/16/17 Pantoprazole [Protonix Tab*] 40 mg PO DAILY 06/16/17 Pravastatin Sodium 40 mg PO DAILY 06/16/17 carvediloL [Coreg*] 6.25 mg PO BID 06/16/17 - Past Medical/Surgical History -: Hypertension -: CHF -: CAD -: HLD -: Bypass Surgery -: AICD Psychosocial/ Personal History: - Family History Family History: Reviewed- Non-Contributory - Social History Smoking Status: Former smoker Alcohol use: No CD- Drugs: No Caffeine use: Yes Place of Residence: Home Review of Systems 10-point ROS is otherwise unremarkable General: Weakness, Malaise Respiratory: Cough, Shortness of Breath, Pleuritic Pain, Sputum, Wheezing Physical Examination - Physical Exam General: Alert, In no apparent distress, Oriented x3, Cooperative HEENT: Atraumatic, PERRLA, Mucous membr. moist/pink, EOMI, Sclerae nonicteric Neck: Supple, 2+ carotid pulse no bruit, No LAD, Without JVD or thyroid ab normality Respiratory: Clear to auscultation bilaterally, Normal air movement Cardiovascular: Regular rate/rhythm, Normal S1 S2 Gastrointestinal: Normal bowel sounds, No tenderness Musculoskeletal: No tenderness Integumentary: No rashes Neurological: Normal speech, Normal strength at 5/5 x4 extr, Normal tone, Normal affect Lymphatics: No axilla or inguinal lymphadenopathy - Studies Laboratory Data (last 24 hrs) 10/06/20 22:40: PT 12.4, INR 1.08 10/06/20 22:40: WBC 6.00, Hgb 13.0 L, Hct 39.7, Plt Count 140 L 10/06/20 22:40: Sodium 145, Potassium 4.2, BUN 20 H, Creatinine 1.47 H, Glucose 79, Magnesium 2.3 D, Total Bilirubin 0.2, AST 30, ALT 30, Alkaline Phosphatase 82 Microbiology Data (last 24 hrs): 10/06/20 22:45 Nasopharnyx Influenza Type A Antigen Screen - Final 10/06/20 22:45 Nasopharnyx Influenza Type B Antigen Screen - Final Assessment and Plan - Problems (Diagnosis) (1) HLD (hyperlipidemia) Current Visit: Yes Status: Chronic Qualifiers: Hyperlipidemia type: unspecified Qualified Code(s): E78.5 - Hyperlipidemia, unspecified (2) URI (upper respiratory infection) Current Visit: Yes Status: Acute Qualifiers: URI type: unspecified viral URI Qualified Code(s): J06.9 - Acute upper resp iratory infection, unspecified (3) Elevated troponin Current Visit: Yes Status: Acute (4) CHF (congestive heart failure) Current Visit: No Status: Chronic Qualifiers: Heart failure type: unspecified Heart failure chronicity: chronic Qualified Code(s): I50.9 - Heart failure, unspecified (5) CKD (chronic kidney disease) stage 3, GFR 30-59 ml/min Current Visit: No Status: Chronic Qualifiers: Chronic kidney disease stage 3 subtype: stage 3a (GFR 45-59) Qualified Code(s): N18.31 - Chronic kidney disease, stage 3a (6) Coronary artery disease Current Visit: No Status: Chronic Qualifiers: Coronary Disease-Associated Artery/Lesion type: bypass graft [place] vs. transplanted heart: [place] heart Associated angina: without angina Qualified Code(s): I25.810 - Atherosclerosis of coronary artery bypass graft(s) without angina pectoris (7) Hypertension Current Visit: No Status: Chronic Qualifiers: Hypertension type: essential hypertension Qualified Code(s): I10 - Essential (primary) hypertension - Plan trend troponin on telemetry, repeat EKG in the AM daily ASA, BB, statin, PRN morphine and NTG lipid panel, thyroid panel pending on day 2 of Karly, will continue, received ceftriaxone x1 in the ED tessalon perles, cough syrup ordered PRN for relief breathing treatments as needed BP stable, continue to monitor Kidney function at baseline, continue to monitor will reconcile and continue home medications DVT ppx Discharge Plan: Home Plan to discharge in: 24 Hours - Advance Directives Does patient have a Living Will: No Does patient have a Durable POA for Healthcare: No - Code Status/Comfort Care Code Status Assessed: Yes (full code ) Critical Care: No Time Spent Managing Pts Care (In Minutes): 70
[2020-10-07] MEDS ORDERED: ACETAMINOPHEN 500 MG TAB PO PRN (02:03)
[2020-10-07] MEDS ORDERED: NITROGLYCERIN 0.4 MG/TAB SL PRN (02:03)
[2020-10-07] MEDS ORDERED: ONDANSETRON 4 MG/2 ML VIAL IV PRN (02:03)
[2020-10-07] MEDS ORDERED: MORPHINE 2 MG/ML SYR IV PRN (02:03)
[2020-10-07] MEDS ORDERED: BENZONATATE 100 MG CAP PO PRN (02:03)
[2020-10-07] MEDS ORDERED: ALBUTEROL 2.5 MG/3 ML NEB SOL NEB PRN (02:03)
[2020-10-07] MEDS ORDERED: HEPARIN 5000 UNIT/ML 1 ML VIAL SQ SCH (02:03)
[2020-10-07] MEDS ORDERED: GUAIFENESIN/DM 5 ML UCUP PO PRN (02:03)
[2020-10-07 03:31] VITALS: BMI 3318.2
[2020-10-07 03:44] LABS: Absolute Lymphocytes (CBC) 1.6 K/uL (0.7-4.9); Hematocrit 35.4 % (39.6-49.0); Lymphocytes % 24.2 % (15.3-44.8); MPV 10.4 fL (7.6-11.3); RBC Red Blood Cell Count 3.73 M/uL (4.33-5.43)
[2020-10-07 04:05] LABS: Albumin 3.1 g/dL (3.4-5.0); Bilirubin Total 0.1 mg/dL (0.2-1.0); Magnesium 2.2 mg/dL (1.8-2.4); Phosphorus 4.1 mg/dL (2.5-4.9); Potassium 4.1 mmol/L (3.5-5.1); Protein, Total 6.5 g/dL (6.4-8.2); Thyroid Stimulating Hormone 1.26 uIU/mL (0.360-3.740)
[2020-10-07 06:43] VITALS: BP 116/54; TEMP 97.8
--- NOTE | 2020-10-07 07:26 | RAD REPORT ---
EXAM DESCRIPTION: Adilson Single View10/06/2020 10:58 pm CLINICAL HISTORY: Cough COMPARISON: 2019 FINDINGS: The lungs appear clear of acute infiltrate. The heart is mildly enlarged. Pacemaker leads are in place. IMPRESSION: No acute abnormalities displayed
[2020-10-07 07:31] LABS: Urine Appearance CLEAR (Clear); Urine Bilirubin NEGATIVE (Negative); Urine Blood NEGATIVE (Negative); Urine Color YELLOW (Yellow); Urine Glucose NEGATIVE (Negative); Urine Protein 1+ (Negative); Urine Specific Gravity 1.015 (1.005-1.030); Urine Urobilinogen 0.2 mg/dL (0.2-1.0); Urine pH 5.5 (5.0-7.0)
[2020-10-07 07:32] LABS: Urine Microscopic Reflex ORDER UMIC
[2020-10-07 08:12] LABS: Urine Bacteria NONE SEEN /HPF (NONE SEEN); Urine RBC NONE SEEN /HPF (NONE SEEN)
[2020-10-07] MEDS ORDERED: LOSARTAN POTASSIUM 50 MG TABLET PO SCH ×2 (09:00)
[2020-10-07] MEDS ORDERED: FUROSEMIDE 40 MG TABLET PO SCH ×2 (09:00)
[2020-10-07] MEDS ORDERED: AZITHROMYCIN 250 MG TAB PO SCH (09:00)
[2020-10-07] MEDS ORDERED: carvediloL 6.25 MG TAB PO SCH (09:00)
[2020-10-07] MEDS ORDERED: SPIRONOLACTONE 25 MG TABLET PO SCH (09:00)
[2020-10-07] MEDS ORDERED: ASPIRIN EC 81 MG TAB PO SCH (09:00)
[2020-10-07 11:04] VITALS: O2SAT 95
--- NOTE | 2020-10-07 12:05 | P.DS ---
Admission Date: 10/07/20 Discharge Date: 10/07/20 Primary Care Provider: Kev Disposition: ROUTINE DISCHARGE Discharge Condition: FAIR Reason for Admission: acs r/o - Problems (1) Chronic systolic CHF (congestive heart failure) Current Visit: Yes Status: Acute (2) AICD (automatic cardioverter/defibrillator) present Current Visit: Yes Status: Acute (3) Elevated troponin Current Visit: Yes Status: Acute (4) URI (upper respiratory infection) Current Visit: Yes Status: Acute Qualifiers: URI type: unspecified viral URI Qualified Code(s): J06.9 - Acute upper respiratory infection, unspecified Brief History of Present Illness: 7-year-old gentleman with a history of coronary artery disease status post CABG, CHF status post AICD and hypertension presented to the emergency department with a complaint of cough productive of thick yellow sputum, shortness of breath, wheezing and pleuritic chest pain. Patient stated the cough was worse with talking and deep breathing. He started taking Z-Krzysztof with no improvement. In the emergency department, his troponin was 0.36, pro calcitonin and lactate within normal limit. Chest x-ray showed no acute infiltrate. Patient diagnosed with acute bronchitis and elevated troponin. He was placed under observation for further management. Hospital Course: Patient placed under observation on the medical floor. Troponin trended flat and ACS is unlikely. Patient treated for acute bronchitis with oral Zithromax. He is not hypoxic. ACS has been ruled out. Patient is discharged to continue Zithromax for acute bronchitis. Prescribed oral prednisone for a few days. Vital Signs/Physical Exam: Temp Pulse Resp BP Pulse Ox 97.8 F 73 20 116/54 L 97 10/07/20 08:00 10/07/20 09:12 10/07/20 08:00 10/07/20 09:12 10/07/20 08:00 General: Alert, In no apparent distress HEENT: Mucous membr. moist/pink Neck: Supple, JVD not distended Respiratory: Normal air movement Cardiovascular: Regular rate/rhythm, Normal S1 S2 Gastrointestinal: Soft and benign, Non-distended Musculoskeletal: No swelling Integumentary: No rashes Neurological: Normal strength at 5/5 x4 extr Laboratory Data at Discharge: WBC 6.40 K/uL (4.3-10.9) 10/07/20 03:27 Hgb 11.6 g/dL (13.6-17.9) L 10/07/20 03:27 Hct 35.4 % (39.6-49.0) L 10/07/20 03:27 Plt Count 124 K/uL (152-406) L 10/07/20 03:27 PT 12.4 SECONDS (9.5-12.5) 10/06/20 22:40 INR 1.08 10/06/20 22:40 Sodium 145 mmol/L (136-145) 10/07/20 03:27 Potassium 4.1 mmol/L (3.5-5.1) 10/07/20 03:27 BUN 19 mg/dL (7-18) H 10/07/20 03:27 Creatinine 1.34 mg/dL (0.55-1.3) H 10/07/20 03:27 Glucose 83 mg/dL (74-106) 10/07/20 03:27 Phosphorus 4.1 mg/dL (2.5-4.9) 10/07/20 03:27 Magnesium 2.2 mg/dL (1.8-2.4) 10/07/20 03:27 Total Bilirubin 0.1 mg/dL (0.2-1.0) L 10/07/20 03:27 AST 25 U/L (15-37) 10/07/20 03:27 ALT 25 U/L (12-78) 10/07/20 03:27 Alkaline Phosphatase 70 U/L (45-117) 10/07/20 03:27 Troponin I 0.30 ng/mL (0.0-0.045) H 10/07/20 07:44 Triglycerides 88 mg/dL (<150) 10/07/20 03:27 Cholesterol 130 mg/dL (<200) 10/07/20 03:27 HDL Cholesterol 32 mg/dL (40-60) L 10/07/20 03:27 Cholesterol/HDL Ratio 4.06 10/07/20 03:27 Home Medications: Aspirin [Aspirin EC 81 MG] 81 mg PO DAILY 06/16/17 Furosemide [Lasix*] 40 mg PO DAILY 06/16/17 Losartan Potassium [Cozaar*] 50 mg PO [id number] 06/16/17 Pravastatin Sodium 40 mg PO DAILY 06/16/17 carvediloL [Coreg*] 6.25 mg PO BID 06/16/17 Azithromycin Tab [Zithromax*] 250 mg PO DAILY #5 tab 10/07/20 Benzonatate [Tessalon Perle*] 100 mg PO TID PRN #30 cap 10/07/20 Guaif/Dm [Robitussin Dm*] 5 ml PO Q6H PRN #30 ucup 10/07/20 Nitroglycerin 0.3 mg SL SEECOM PRN 10/07/20 Pramipexole Di-HCl [Pramipexole Dihydrochloride] 0.5 mg PO DAILY 10/07/20 Spironolactone 12.5 mg PO DAILY 10/07/20 New Medications: Guaif/Dm [Robitussin Dm*] 5 ml PO Q6H PRN #30 ucup PRN Reason: COUGH, use 1st Benzonatate [Tessalon Perle*] 100 mg PO TID PRN #30 cap PRN Reason: COUGH, use 2nd Azithromycin Tab [Zithromax*] 250 mg PO DAILY #5 tab Diet: AHA Activity: Ad krzysztof Followup: Mayra Ballesteros, CRAIG [Primary Care Provider] -
[2020-10-07] MEDS ORDERED: ATORVASTATIN 10 MG TAB PO SCH (21:00)
[2020-10-07] MEDS ORDERED: PRAMIPEXOLE 0.25 MG TAB PO SCH (21:00)
== END 2020-10-07 13:00 | disposition home or self-care (01) ==
LOC: ER 21:35 → INTOOBSV 10-07 01:30 → 2ND 10-07 01:30
PROVIDERS: ADMIT Internal Medicine; ATTEND Internal Medicine
DX: I13.0 Hypertensive heart and chronic kidney disease with heart failure and stage 1 through stage 4 chronic kidney disease, or unspecified chronic kidney disease (principal); I50.22 Chronic systolic (congestive) heart failure; Z95.810 Presence of automatic (implantable) cardiac defibrillator; Z20.822 Contact with and (suspected) exposure to COVID-19; R77.8 Other specified abnormalities of plasma proteins; J06.9 Acute upper respiratory infection, unspecified; I25.10 Atherosclerotic heart disease of native coronary artery without angina pectoris; Z95.1 Presence of aortocoronary bypass graft; J20.9 Acute bronchitis, unspecified; E78.5 Hyperlipidemia, unspecified; Z87.891 Personal history of nicotine dependence; N18.31 Chronic kidney disease, stage 3a
CPT/HCPCS: 93005; 87040 ×2; 87070; 85025 ×2; 80048; 36415; 83735 ×2; 87205; 84100; 85610; 80061; 80076; 83605; 84443; 84484 ×3; 84439; 80053; 84145; 83880; 87807; 87804 ×2; 71045; 94760 ×2; U0003; J1644; J0696; G0378 ×2; 81003; 81015; 96374; 99285

== ENCOUNTER 2020-10-20 10:23 | Observation (INO) | payer MEDICARE ==
--- OUTSIDE RECORDS SUMMARY | 2020-10-20 10:30 | XMS REPORT | Continuity of Care Document ---
:1940 Author Organization [facility] t Address [address] [place] [address] Care Team Providers Name Role Phone Bernardo Holcomb MD Attending Clinician [phone] Eber RN, L Attending Clinician Unavailable Antione [...] ID 2020-09-20 2020-09-20 Telephone Bella Davis [id number] 00:00:00 00:00:00 Boby Ruiz [id number] Bernardo gu and [id number] Adult [id number] Primary [address] [place] [address] Clinic 2020-09-05 2020-09-05 Transition Dee Velázquez [id number] 00:00:00 00:00:00 Care Kathryn Martinez [id number] [place] [id number] 2020-09-03 2020-09-04 Emergency Jordon Talbot [facility] [id number] 14:09:00 14:40:00 Jonatan Gr [id number] Dwight Javier [id number] Lillian [id number] 2020-09-03 2020-09-03 Orders Doctor MICHELLE [id number] 00:00:00 00:00:00 Only Unassigned, BONNIE [id number] [place] [facility] [id number] 2020-08-15 2020-08-15 Office STANFORD Davis [id number] 09:22:34 10:41:17 Visit [facility] [id number] CLINICS [id number] Results This patient has no known results.
[2020-10-20 12:18] LABS: Absolute Lymphocytes (CBC) 1.7 K/uL (0.7-4.9); Basophils % 1.4 % (0-1.3); Hematocrit 41.4 % (39.6-49.0); Lymphocytes % 23.4 % (15.3-44.8); MPV 10.5 fL (7.6-11.3); RBC Red Blood Cell Count 4.38 M/uL (4.33-5.43)
[2020-10-20 12:19] LABS: Protime INR 1.01
[2020-10-20 12:39] LABS: Albumin 3.8 g/dL (3.4-5.0); Bilirubin Direct 0.1 mg/dL (0-0.2); Bilirubin Total 0.3 mg/dL (0.2-1.0); Magnesium 2.6 mg/dL (1.8-2.4); Potassium 4.6 mmol/L (3.5-5.1); Protein, Total 7.9 g/dL (6.4-8.2); Troponin (Emerg Dept Use Only) 0.17 ng/mL (0.0-0.045)
--- NOTE | 2020-10-20 13:06 | RAD REPORT ---
EXAM DESCRIPTION: Adilson Single View10/20/2020 12:54 pm CLINICAL HISTORY: Cough COMPARISON: September 2020 FINDINGS: The lungs appear clear of acute infiltrate. The heart is mildly enlarged. Postsurgical changes involve the chest. Pacemaker leads in place IMPRESSION: No acute abnormalities displayed
[2020-10-20] MEDS ORDERED: ACETAMINOPHEN 500 MG TAB PO PRN (14:15)
[2020-10-20] MEDS ORDERED: MORPHINE 2 MG/ML SYR IV PRN (14:15)
[2020-10-20] MEDS ORDERED: ONDANSETRON 4 MG/2 ML VIAL IV PRN (14:15)
--- NOTE | 2020-10-20 14:29 | EDPHYS ---
Physician Documentation [facility] Name: Berto Grijalva Jr Age: 79 yrs Sex: Male : 1940 Arrival Date: 10/20/2020 Time: 10:29 Bed 18 Private MD: ED Physician Cole Jones HPI: 10/20 11:21 This 79 yrs old Male presents to ER via Ambulatory with complaints of jmm COUGHING???. 11:21 The patient has shortness of breath at rest, with light activity. Onset: The jmm symptoms/episode began/occurred gradually, 1 week(s) ago. Duration: The symptoms are continuous. The patient's shortness of breath is aggravated by eating, exertion. Associated signs and symptoms: Pertinent negatives: fever. This is an 79 yea rold male with a history of hlp, htn, that presents to the ED with complaints of cough, shortness of breath, difficulty eating over the past week. Seen by the ED and advised to go to the ED for further evaluation. . Historical: - Allergies: 10:56 venlafaxine; iw - PMHx: 10:56 Hyperlipidemia; Hypertension; Pacemaker; iw - PSHx: 10:56 triple bypass; back X 3; defibrillator; iw - Immunization history:: Client reports receiving the 2nd dose of the Covid vaccine. - Social history:: Smoking status: . ROS: 11:21 Constitutional: Negative for fever, chills, and weight loss, Cardiovascular: Negative jmm for chest pain, palpitations, and edema. 11:21 Respiratory: Positive for cough, shortness of breath. 11:21 All other systems are negative. Exam: 11:21 Constitutional: This is a well developed, well nourished patient who is awake, alert, jmm and in no acute distress. Head/Face: atraumatic. Eyes: EOMI, no conjunctival erythema appreciated ENT: Moist Mucus Membranes Neck: Trachea midline, Supple Chest/axilla: Normal chest wall appearance and motion. Cardiovascular: Regular rate and rhythm. No edema appreciated Respiratory: Normal respirations, no respiratory distress appreciated Abdomen/GI: Non distended, soft Back: Normal ROM Skin: General appearance color normal MS/ Extremity: Moves all extremities, no obvious deformities appreciated, no edema noted to the lower extremities Neuro: Awake and alert, normal gait Psych: Behavior is normal, Mood is normal, Patient is cooperative and pleasant Vital Signs: 10:53 BP 109 / 57; Pulse 78; Resp 16; Temp 97.6; Pulse Ox 98% on R/A; Weight 52.62 kg; iw 13:06 BP 108 / 58; Pulse 59; Resp 17 S; Pulse Ox 99% on R/A; jd3 14:10 BP 130 / 66; Pulse 60; Resp 16 S; Pulse Ox 100% on R/A; jd3 MDM: 11:55 Patient medically screened. [facility] 14:25 Data reviewed: vital signs, nurses notes. Counseling: I had a detailed discussion with [facility] the patient and/or guardian regarding: the historical points, exam findings, and any diagnostic results supporting the discharge/admit diagnosis, lab results, radiology results, the need for further work-up and treatment in the hospital. ED course: I discussed the patient with Dr. Alfaro whom accepted admission. . 10/20 11:21 Order name: Basic Metabolic Panel; Complete Time: 12:42 [facility] 10/20 11:21 Order name: CBC with Diff; Complete Time: 12:42 [facility] 10/20 11:21 Order name: LFT's; Complete Time: 12:42 [facility] 10/20 11:21 Order name: Magnesium; Complete Time: 12:42 [facility] 10/20 11:21 Order name: NT PRO-BNP; Complete Time: 12:42 [facility] 10/20 11:21 Order name: PT-INR; Complete Time: 12:42 [facility] 10/20 11:21 Order name: Troponin (emerg Dept Use Only); Complete Time: 12:42 [facility] 10/20 13:53 Order name: COVID-19 : Document "Date of Symptom Onset" if Symptomatic. iw 10/20 13:54 Order name: CORONAVIRUS EDAZ 10/20 14:18 Order name: CBC with Automated Diff [facility] 10/20 14:18 Order name: CBC with Automated Diff [facility] 10/20 14:18 Order name: Comprehensive Metabolic Panel [facility] 10/20 14:18 Order name: Comprehensive Metabolic Panel [facility] 10/20 14:18 Order name: Troponin I [facility] 10/20 11:21 Order name: XRAY Chest (1 view); Complete Time: 13:14 [facility] 10/20 11:21 Order name: EKG; Complete Time: 11:22 [facility] 10/20 11:21 Order name: Cardiac monitoring; Complete Time: 11:35 [facility] 10/20 11:21 Order name: EKG - Nurse/Tech; Complete Time: 12:09 [facility] 10/20 11:21 Order name: IV Saline Lock; Complete Time: 12:09 [facility] 10/20 11:21 Order name: Labs collected and sent; Complete Time: 12:09 [facility] 10/20 11:21 Order name: O2 Per Protocol; Complete Time: 11:35 [facility] 10/20 14:18 Order name: CONS Physician Consult [facility] 10/20 14:18 Order name: Heart Healthy [facility] 10/20 14:18 Order name: EKG Electrocardiogram [facility] 10/20 14:18 Order name: EKG Electrocardiogram [facility] 10/20 14:18 Order name: Troponin I [facility] 10/20 14:18 Order name: Echo with Doppler [facility] 10/20 14:18 Order name: Renal Ultrasound-Complete; Complete Time: 15:38 [facility] 10/20 14:27 Order name: Physical Therapy Consult [facility] 10/20 15:25 Order name: SARS-COV-2 RT PCR; Complete Time: 15:29 [facility] 10/20 11:21 Order name: O2 Sat Monitoring; Complete Time: 11:35 [facility] Administered Medications: No medications were administered Disposition Summary: 10/20/20 14:28 Hospitalization Ordered Hospitalization Status: Observation [facility] Provider: Noa Alfaro Location: Telemetry/MedSur (observation) [facility] Condition: Stable [facility] Problem: new [facility] Symptoms: are unchanged [facility] Bed/Room Type: Standard [facility] Room Assignment: 224(10/20/20 15:39) eb Diagnosis - Elevated Troponin jmm - Dehydration [facility] Forms: - Medication Reconciliation Form [facility] - SBAR form [facility] Addendum: 10/23/2020 13:48 Co-signature as Attending Physician, Cole Jones MD I agree with the assessment and k dr plan of care. Signatures: Dispatcher [employer] [facility] Cole Jones MD MD kdr Mickail, Joel, PA PA [facility] Lillian Luna RN RN Erma Felipe Corrections: (The following items were deleted from the chart) 07/02 15:39 14:28 [facility]
--- NOTE | 2020-10-20 14:29 | ER ---
Nurse's Notes [facility] Name: Berto Grijalva Jr Age: 79 yrs Sex: Male : 1940 Arrival Date: 10/20/2020 Time: 10:29 Bed 18 Private MD: Diagnosis: Elevated Troponin;Dehydration Presentation: 10/20 10:53 Chief complaint: Patient states: Mayra Dior, EVANGELIST (with Dr. Angulo) wanted him to iw sign in to be checked in because they were concerned about some tests that were run, he has had a bad cough and he's been choking when he eats, was told his potassium was real low. Coronavirus screen:. Coronavirus screen: cough unrelated to allergies, Client presents with at least one sign or symptom that may indicate coronavirus-19. Ebola Screen: Patient negative for fever greater than or equal to 101.5 degrees Fahrenheit, and additional compatible Ebola Virus Disease symptoms Patient denies exposure to infectious person. Patient denies travel to an Ebola-affected area in the 21 days before illness onset. No symptoms or risks identified at this time. Initial Sepsis Screen: Does the patient meet any 2 criteria? No. Patient's initial sepsis screen is negative. Does the patient have a suspected source of infection?. Risk Assessment: Do you want to hurt yourself or someone else? Patient reports no desire to harm self or others. Onset of symptoms was October 20, 2020. 10:53 Method Of Arrival: Ambulatory iw 10:53 Acuity: EVELYNE 3 iw Historical: - Allergies: 10:56 venlafaxine; iw - PMHx: 10:56 Hyperlipidemia; Hypertension; Pacemaker; iw - PSHx: 10:56 triple bypass; back X 3; defibrillator; iw - Immunization history:: Client reports receiving the 2nd dose of the Covid vaccine. - Social history:: Smoking status: . Screenin:11 Abuse screen: Denies threats or abuse. Nutritional screening: No deficits noted. jd3 Tuberculosis screening: No symptoms or risk factors identified. Fall Risk Ambulatory Aid- None/Bed Rest/Nurse Assist (0 pts). Gait- Normal/Bed Rest/Wheelchair (0 pts) Mental Status- Oriented to own ability (0 pts). Total Khan Fall Scale indicates No Risk (0-24 pts). Assessment: 12:09 General: Appears in no apparent distress. comfortable, Behavior is calm, cooperative, jd3 appropriate for age, Reports fatigue for 2-3 days. Pain: Denies pain. Neuro: Level of Consciousness is awake, alert, obeys commands, Oriented to person, place, time, situation. Cardiovascular: Denies chest pain, Capillary refill < 3 seconds Patient's skin is warm and dry. Rhythm is regular. Respiratory: Airway is patent Respiratory effort is even, unlabored, Respiratory pattern is regular, symmetrical, Denies cough, shortness of breath. GI: No signs and/or symptoms were reported involving the gastrointestinal system. : No signs and/or symptoms were reported regarding the genitourinary system. EENT: No signs and/or symptoms were reported regarding the EENT system. Derm: Skin is intact, Skin is dry, Skin is normal, Skin temperature is warm. Musculoskeletal: Circulation, motion, and sensation intact. Range of motion: intact in all extremities. 13:06 Reassessment: Patient appears in no apparent distress at this time. No changes from jd3 previously documented assessment. Patient and/or family updated on plan of care and expected duration. Pain level reassessed. Patient is alert, oriented x 3, equal unlabored respirations, skin warm/dry/pink. 14:10 Reassessment: Patient appears in no apparent distress at this time. No changes from jd3 previously documented assessment. Patient and/or family updated on plan of care and expected duration. Pain level reassessed. Patient is alert, oriented x 3, equal unlabored respirations, skin warm/dry/pink. 16:13 Reassessment: Patient appears in no apparent distress at this time. Patient and/or jd3 family updated on plan of care and expected duration. Pain level reassessed. Patient is alert, oriented x 3, equal unlabored respirations, skin warm/dry/pink. awaiting admission. Vital Signs: 10:53 BP 109 / 57; Pulse 78; Resp 16; Temp 97.6; Pulse Ox 98% on R/A; Weight 52.62 kg; iw 13:06 BP 108 / 58; Pulse 59; Resp 17 S; Pulse Ox 99% on R/A; jd3 14:10 BP 130 / 66; Pulse 60; Resp 16 S; Pulse Ox 100% on R/A; jd3 ED Course: 10:29 Patient arrived in ED. wm 10:56 Triage completed. 10:58 Maldonado Chávez, RN is Primary Nurse. jd3 11:21 Jensen Li PA is PHCP. vijay 11:21 Cole Jones MD is Attending Physician. jmm 11:35 Arm band placed on. jd3 12:09 Inserted saline lock: 20 gauge in left antecubital area, using aseptic technique. Blood jd3 collected. 12:11 Patient has correct armband on for positive identification. Bed in low position. Call jd3 light in reach. Side rails up X 1. Adult w/ patient. case monitor on. Pulse ox on. NIBP on. 12:54 XRAY Chest (1 view) In Process Unspecified. EDMS 14:26 Noa Alfaro MD is Hospitalizing Provider. [facility] 16:14 No provider procedures requiring assistance completed. Patient admitted, IV remains in iw place. Administered Medications: No medications were administered Outcome: 14:28 Decision to Hospitalize by Provider. jmm 16:14 Admitted to Tele accompanied by tech, via wheelchair, room 224, Report called to bhumika Hutchinson RN 16:14 Condition: good 16:14 Discharge instructions given to patient, Instructed on the need for admit, Demonstrated understanding of instructions. 16:40 Patient left the ED. jd3 Signatures: Dispatcher [employer] EDMS Jensen Li PA PA jmm Williams, Irene, RN RN Maldonado Bello RN RN Santa Dempsey
[2020-10-20] MEDS ORDERED: NA CHLORIDE 0.9% 1,000 ML IV SCH (15:00)
--- NOTE | 2020-10-20 15:35 | RAD REPORT ---
EXAM DESCRIPTION: US - Renal Ultrasound-Complete - 10/20/2020 3:04 pm CLINICAL HISTORY: Acute and chronic renal failure COMPARISON: August 2020 FINDINGS: The right kidney measures 10 cm with an increased echotexture. The left kidney measures 11 cm with an increased echotexture. A 1.2 centimeter cyst Hydronephrosis is not seen. No gross abnormality of bladder is seen IMPRESSION: Increased renal echotexture consistent with parenchymal disease
[2020-10-20 18:14] VITALS: BMI 22.6
--- NOTE | 2020-10-20 18:35 | P.HP ---
Certification for Inpatient Patient admitted to: Observation With expected LOS: <2 Midnights Patient will require the following post-hospital care: None Practitioner: I am a practitioner with admitting privileges, knowledge of patient current condition, hospital course, and medical plan of care. Services: Services provided to patient in accordance with Admission requirements found in Title 42 Section 412.3 of the Code of Federal Regulations Patient History Date of Service: 10/20/20 Reason for admission: Chest pain/elevated troponin/ History of Present Illness: Patient is a 79-year-old gentleman who came to the hospital after having a call. He was found have acute renal insufficiency along with an elevated troponin. He was having some chest pain when he arrived to the floor. Will given nitro paste and morphine as needed. Patient currently feeling better at this time. Monitor serial troponins and EKG. No significant EKG changes as noted. Hydrate and monitor renal function. Will Consul Cardiology. Anticipate discharge over the next 24-48 hr. Allergies venlafaxine [From Effexor] Adverse Reaction (Verified 06/16/17 09:02) nightmares Home Medications: Aspirin [Aspirin EC 81 MG] 81 mg PO DAILY 06/16/17 Furosemide [Lasix*] 40 mg PO BID 06/16/17 Losartan Potassium [Cozaar*] 100 mg PO [id number] 06/16/17 Pravastatin Sodium 40 mg PO DAILY 06/16/17 carvediloL [Coreg*] 6.25 mg PO BID 06/16/17 Azithromycin Tab [Zithromax*] 250 mg PO DAILY #5 tab 10/07/20 Benzonatate [Tessalon Perle*] 100 mg PO TID PRN #30 cap 10/07/20 Cefuroxime Axetil [Cefuroxime] 500 mg PO BID #6 tab 10/07/20 Guaif/Dm [Robitussin Dm*] 5 ml PO Q6H PRN #30 ucup 10/07/20 Nitroglycerin 0.3 mg SL SEECOM PRN 10/07/20 Pramipexole Di-HCl [Pramipexole Dihydrochloride] 0.5 mg PO DAILY 10/07/20 Spironolactone 12.5 mg PO DAILY 10/07/20 predniSONE [Prednisone*] 20 mg PO DAILY #3 tab 10/07/20 Clopidogrel Bisulfate [Plavix*] 75 mg PO DAILY #30 tablet 07/03/21 - Past Medical/Surgical History -: Hypertension -: CHF -: CAD -: HLD -: Bypass Surgery -: AICD Psychosocial/ Personal History: - Family History Father Family History: Reviewed- Non-Contributory - Social History Alcohol use: No CD- Drugs: No Caffeine use: Yes Review of Systems 10-point ROS is otherwise unremarkable Physical Examination - Vital Signs Temperature: 97.2 F Blood Pressure: 123/56 Pulse: 64 Respirations: 16 Pulse Ox (%): 100 - Physical Exam General: Alert, In no apparent distress, Oriented x3 HEENT: Atraumatic, PERRLA, Mucous membr. moist/pink, EOMI, Sclerae nonicteric Neck: Supple, 2+ carotid pulse no bruit, No LAD, Without JVD or thyroid abnormality Respiratory: Clear to auscultation bilaterally, Normal air movement Cardiovascular: Regular rate/rhythm, Normal S1 S2 Gastrointestinal: Normal bowel sounds, No tenderness Musculoskeletal: No tenderness Integumentary: No rashes Neurological: Normal gait, Normal speech, Normal strength at 5/5 x4 extr, Normal tone, Normal affect Lymphatics: No axilla or inguinal lymphadenopathy - Studies Laboratory Data (last 24 hrs) 10/20/20 12:06: PT 11.6, INR 1.01 10/20/20 12:06: WBC 7.20, Hgb 13.8, Hct 41.4, Plt Count 169 10/20/20 12:06: Sodium 142, Potassium 4.6, BUN 37 H, Creatinine 1.68 H, Glucose 103, Magnesium 2.6 H, Total Bilirubin 0.3, AST 36, ALT 35, Alkaline Phosphatase 86 Assessment & Plan - Problems (Diagnosis) (1) Chest pain, rule out acute myocardial infarction Current Visit: Yes Status: Acute (2) AICD (automatic cardioverter/defibrillator) present Current Visit: No Status: Acute (3) URI (upper respiratory infection) Current Visit: No Status: Acute Qualifiers: URI type: unspecified viral URI Qualified Code(s): J06.9 - Acute upper respiratory infection, unspecified (4) CHF (congestive heart failure) Current Visit: No Status: Chronic Qualifiers: Heart failure type: unspecified Heart failure chronicity: chronic Qualified Code(s): I50.9 - Heart failure, unspecified (5) Coronary artery disease Current Visit: No Status: Chronic Qualifiers: Coronary Disease-Associated Artery/Lesion type: bypass graft [place] vs. transplanted heart: [place] heart Associated angina: without angina Qualified Code(s): I25.810 - Atherosclerosis of coronary artery bypass graft(s) without angina pectoris (6) HLD (hyperlipidemia) Current Visit: No Status: Chronic Qualifiers: Hyperlipidemia type: unspecified Qualified Code(s): E78.5 - Hyperlipidemia, unspecified (7) Hypertension Current Visit: No Status: Chronic Qualifiers: Hypertension type: essential hypertension Qualified Code(s): I10 - Esse ntial (primary) hypertension - Plan 1. Serial troponins and EKG 2. Appreciate Cardiology consultation 3. If patient is ruled out. Will discuss with Cardiology regarding outpatient Echocardiogram and stress test 4. Anti-platelet therapy, anti coagulation, beta-iris, statin, and O2 as needed 5. IV morphine for pain 6. Nitro p.r.n. 7. Repeat chest x-ray if symptoms worsen 8. Renal ultrasound 9. GI and DVT prophylaxis Discharge Plan: Home Plan to discharge in: 24 Hours - Advance Directives Does patient have a Living Will: No Does patient have a Durable POA for Healthcare: No - Code Status/Comfort Care Code Status Assessed: Yes Code Status: Full Code Critical Care: No Time Spent Managing PTS Care (In Minutes): 55
[2020-10-20] MEDS ORDERED: CLOPIDOGREL 75 MG TABLET PO ONE (18:45)
[2020-10-20] MEDS ORDERED: ASPIRIN EC 81 MG TAB PO ONE (19:00)
[2020-10-20] MEDS: NA CHLORIDE 0.9% 1,000 ML IV SCH (19:43)
[2020-10-20] MEDS ORDERED: ENOXAPARIN 30 MG/0.3 ML SQ ONE (20:00)
[2020-10-20] MEDS: carvediloL 6.25 MG TAB PO SCH (20:52)
[2020-10-20] MEDS ORDERED: ATORVASTATIN 40 MG TAB PO SCH (21:00)
[2020-10-21 03:31] LABS: Urine Appearance CLEAR (Clear); Urine Bilirubin NEGATIVE (Negative); Urine Blood NEGATIVE (Negative); Urine Color YELLOW (Yellow); Urine Glucose NEGATIVE (Negative); Urine Protein NEGATIVE (Negative); Urine Urobilinogen 0.2 mg/dL (0.2-1.0); Urine pH 5.5 (5.0-7.0)
[2020-10-21 03:40] LABS: Urine Protein/Creatinine Ratio 0.19 ratio (<0.15)
[2020-10-21 04:01] LABS: Urine Bacteria <20 /HPF (NONE SEEN); Urine RBC <5 /HPF (NONE SEEN)
[2020-10-21] MEDS: NA CHLORIDE 0.9% 1,000 ML IV SCH (05:28)
[2020-10-21 06:08] LABS: Absolute Lymphocytes (CBC) 1.5 K/uL (0.7-4.9); Hematocrit 35.9 % (39.6-49.0); Lymphocytes % 24.4 % (15.3-44.8); MPV 10.6 fL (7.6-11.3); RBC Red Blood Cell Count 3.81 M/uL (4.33-5.43)
[2020-10-21 06:28] LABS: Albumin 2.9 g/dL (3.4-5.0); Bilirubin Total 0.3 mg/dL (0.2-1.0); Potassium 4.1 mmol/L (3.5-5.1); Troponin I 0.16 ng/mL (0.0-0.045)
[2020-10-21 06:43] VITALS: O2SAT 96
[2020-10-21 06:48] LABS: Magnesium 2.3 mg/dL (1.8-2.4); Phosphorus 2.9 mg/dL (2.5-4.9); Thyroid Stimulating Hormone 1.23 uIU/mL (0.360-3.740)
[2020-10-21] MEDS ORDERED: ENOXAPARIN 30 MG/0.3 ML SQ SCH (09:00)
[2020-10-21] MEDS ORDERED: CLOPIDOGREL 75 MG TABLET PO SCH (09:00)
[2020-10-21] MEDS: carvediloL 6.25 MG TAB PO SCH (09:34)
[2020-10-21] MEDS: ASPIRIN EC 81 MG TAB PO SCH ×2 (09:34→09:35)
--- NOTE | 2020-10-21 10:27 | EKG ---
Test Date: 2020-10-20 Test Time: 12:01:05 Nail Sticker: MATTHEW MEASUREMENT RESULTS: Intervals: Rate: 64 LA: 166 QRSD: 88 QT: 442 QTc: 455 Kenna: P: 71 LA: 166 QRS: 59 T: -77 INTERPRETIVE STATEMENTS: Normal sinus rhythm Cannot rule out Anterior infarct, age undetermined T wave abnormality, consider inferolateral ischemia Abnormal ECG Compared to ECG 10/07/2020 00:14:13 Myocardial infarct finding now present T-wave abnormality still present Possible ischemia still present Electronically Signed On 10-21-20 10:25:43 CDT by Daniel Palacios
--- NOTE | 2020-10-21 11:48 | CON ---
Date of Consultation: 10/21/2020 Reason For Consultation: Abnormal troponin. History Of Present Illness: Mr. Grijalva is an 79-year-old [place] male. He is followed by Shelton Balderrama in [facility]. He has a history of hypertension; dyslipidemia; chronic sys tolic congestive heart failure, status post pacemaker, defibrillator and CABG in the past. His next appointment with Dr. Balderrama is in 3 months. Came in with coughing, no chest pain, but started havin g cramps, was noted to have hypokalemia, elevated troponin. No midsternal chest pain. No nausea, vo miting, diaphoresis, PND, orthopnea, pedal edema, palpitations, or syncope. He denied fever or chill s. Past Medical History: As stated above. Allergies: TO VENLAFAXINE. Medications: At home include aspirin, Aldactone, Coreg, Lasix, losartan, prednisone, and pravastatin . Review of Systems: Negative. Social History: Negative. Family History: Negative. Physical Examination: General: Very pleasant, alert, oriented x3, paced rhythm, afebrile. Chest: Clear. HEENT: Negative. Neck: Supple. No bruit. Cardiac: Revealed a regular paced rhythm, with no murmurs, gallops, or rubs. Abdomen: Benign. Extremities: Revealed no clubbing, cyanosis, or edema. Neurologic: Nonfocal. Pulses were present throughout. Skin: Dry and intact. Diagnostic Data: EKG showed paced rhythm. Chest x-ray was normal. Creatinine was 1.68, troponin 0. 17. BNP was 1253. Impression And Plan: 1.Coughing, cramps, and hypokalemia. 2.Elevated troponin secondary to chronic congestive heart failure. 3.Elevated BNP secondary to the same reason above. 4.Hypertension, well controlled. 5.Dyslipidemia, well controlled. 6.Coronary artery disease, status post coronary artery bypass graft. 7.Chronic systolic congestive heart failure, status post pacemaker and defibrillator, followed in [facility]. I would personally continue his present regimen. Add a low dose potassium. Continue watching his cr eatinine. He apparently sees a bulk filler for that. I do not see any reason to keep Mr. Grijalva in the hospital. He can follow up with Dr. Balderrama in [facility] in the near future. NB/MODL Voice ID: [id number] Report ID: [id number]
[2020-10-21 13:19] VITALS: BP 123/56; TEMP 97.2
--- NOTE | 2020-10-21 16:01 | P.PN ---
Subjective Date of Service: 10/21/20 Chief Complaint: Chest pain/elevated troponin/ An 79-year-old gentleman with PMHX of CHF S/p AICD, on ALEC, aldactone and lasix, CKD baseline cr 1.3-1.5 who came to the hospital for abnoraml labs of elevated troponin and Cr in ER cr 1.7 pt denied NSAID intake o contrast exposure Physical exam general: AAOX3, NAD , obese Neck; Supple, No elevated JVD chest CTAB, no rlaes or wheezes hear: RRR, normal S1,2 no murmur or rub Chest: CTAB, no rales or wheezes Abdomen: Soft , Nt Extremities No edema or ulcer BRIE mild due to overdiuresis resolved US : no hydro avoid NSAID and contrast elevated troponin asymptomatic Hx of CHF pt is dry cont tto hold diuretics can resume home meds on discharge, consider to reduce lasix to once daiy HTN BP controlled total time spent 35 min Physical Examination - Vital Signs Temperature: 97.2 F Blood Pressure: 123/56 Pulse: 64 Respirations: 16 Pulse Ox (%): 100
--- NOTE | 2020-10-23 02:27 | P.DS ---
Discharge Date: 10/21/20 Disposition: ROUTINE DISCHARGE Discharge Condition: GOOD Reason for Admission: Chest pain/elevated troponin/ Consultations: Cardiology - Problems (1) Chest pain, rule out acute myocardial infarction Status: Acute (2) AICD (automatic cardioverter/defibrillator) present Status: Acute (3) URI (upper respiratory infection) Status: Acute Qualifiers: URI type: unspecified viral URI Qualified Code(s): J06.9 - Acute upper respiratory infection, unspecified (4) CHF (congestive heart failure) Status: Chronic Qualifiers: Heart failure type: unspecified Heart failure chronicity: chronic Qualified Code(s): I50.9 - Heart failure, unspecified (5) Coronary artery disease Status: Chronic Qualifiers: Coronary Disease-Associated Artery/Lesion type: bypass graft [place] vs. transplanted heart: [place] heart Associated angina: without angina Qualified Code(s): I25.810 - Atherosclerosis of coronary artery bypass graft(s) without angina pectoris (6) HLD (hyperlipidemia) Status: Chronic Qualifiers: Hyperlipidemia type: unspecified Qualified Code(s): E78.5 - Hyperlipidemia, unspecified (7) Hypertension Status: Chronic Qualifiers: Hypertension type: essential hypertension Qualified Code(s): I10 - Essential (primary) hypertension Brief History of Present Illness: Patient is a 79-year-old gentleman who came to the hospital after having a call. He was found have acute renal insufficiency along with an elevated troponin. He was having some chest pain when he arrived to the floor. Will given nitro paste and morphine as needed. Patient currently feeling better at this time. Monitor serial troponins and EKG. No significant EKG changes as noted. Hydrate and monitor renal function. Will Consul Cardiology. Anticipate discharge over the next 24-48 hr. Hospital Course: Patient has done well during hospitalization. Spoke with Cardiology and they feel patient is comfortable for discharge but he will need outpatient follow with them in 1-2 weeks. Patient will return to the cardiology follow-up for further workup. At this time, patient is stable for discharge home. Vital Signs/Physical Exam: Temp Pulse Resp BP Pulse Ox 97.2 F 64 16 123/56 L 100 10/21/20 16:01 10/21/20 16:01 10/21/20 16:01 10/21/20 16:01 10/21/20 16:01 General: Alert, In no apparent distress, Oriented x3 Laboratory Data at Discharge: WBC 6.30 K/uL (4.3-10.9) 10/21/20 05:27 Hgb 11.9 g/dL (13.6-17.9) L 10/21/20 05:27 Hct 35.9 % (39.6-49.0) L 10/21/20 05:27 Plt Count 134 K/uL (152-406) L D 10/21/20 05:27 PT 11.6 SECONDS (9.5-12.5) 10/20/20 12:06 INR 1.01 10/20/20 12:06 Sodium 142 mmol/L (136-145) 10/21/20 05:27 Potassium 4.1 mmol/L (3.5-5.1) 10/21/20 05:27 BUN 31 mg/dL (7-18) H 10/21/20 05:27 Creatinine 1.37 mg/dL (0.55-1.3) H 10/21/20 05:27 Glucose 118 mg/dL (74-106) H 10/21/20 05:27 Phosphorus 2.9 mg/dL (2.5-4.9) 10/21/20 05:27 Magnesium 2.3 mg/dL (1.8-2.4) 10/21/20 05:27 Total Bilirubin 0.3 mg/dL (0.2-1.0) 10/21/20 05:27 AST 28 U/L (15-37) 10/21/20 05:27 ALT 25 U/L (12-78) 10/21/20 05:27 Alkaline Phosphatase 67 U/L (45-117) 10/21/20 05:27 Troponin I 0.16 ng/mL (0.0-0.045) H 10/21/20 05:27 Home Medications: Aspirin [Aspirin EC 81 MG] 81 mg PO DAILY 06/16/17 Furosemide [Lasix*] 40 mg PO BID 06/16/17 Losartan Potassium [Cozaar*] 100 mg PO [id number] 06/16/17 Pravastatin Sodium 40 mg PO DAILY 06/16/17 carvediloL [Coreg*] 6.25 mg PO BID 06/16/17 Azithromycin Tab [Zithromax*] 250 mg PO DAILY #5 tab 10/07/20 Benzonatate [Tessalon Perle*] 100 mg PO TID PRN #30 cap 10/07/20 Cefuroxime Axetil [Cefuroxime] 500 mg PO BID #6 tab 10/07/20 Guaif/Dm [Robitussin Dm*] 5 ml PO Q6H PRN #30 ucup 10/07/20 Nitroglycerin 0.3 mg SL SEECOM PRN 10/07/20 Pramipexole Di-HCl [Pramipexole Dihydrochloride] 0.5 mg PO DAILY 10/07/20 Spironolactone 12.5 mg PO DAILY 10/07/20 predniSONE [Prednisone*] 20 mg PO DAILY #3 tab 10/07/20 Clopidogrel Bisulfate [Plavix*] 75 mg PO DAILY #30 tablet 10/21/20 New Medications: Clopidogrel Bisulfate [Plavix*] 75 mg PO DAILY #30 tablet Physician Discharge Instructions: PROBLEM: Elevated troponin, Cough, Acute on chronic kidney disease GOAL: Clear understanding of disease process INSTRUCTIONS: Diet: heart healthy Activity: Fall precautions OK TO DC IV AND DC HOME FOLLOW-UP WITH PRIMARY CARE PROVIDER IN 1-2 WEEKS FOLLOW-UP WITH CARDIOLOGY IN 1-2 WEEKS RETURN TO THE ER IF symptoms worsen CALL or TEXT DR. REAL AT [phone] IF ANY QUESTIONS REGARDING HOSPITAL STAY. PLEASE CALL THE FLOOR AT [phone] IF ANY MEDICATION OR NURSING QUESTIONS. Diet: AHA Activity: Fall precautions Followup: Daniel Palacios MD [ACTIVE - CAN ADMIT] - (Call to make an appointment. ) David Angulo MD [Primary Care Provider] - Time spent managing pt's care (in minutes): 35
--- NOTE | 2020-10-24 16:16 | EKG ---
Test Date: 2020-10-20 Test Time: 17:19:37 [employer] D[employer] Machine Feeder: DAVID MEASUREMENT RESULTS: Intervals: Rate: 60 GA: 186 QRSD: 88 QT: 456 QTc: 456 [place]: P: 57 GA: 186 QRS: 1 T: 206 INTERPRETIVE STATEMENTS: Electronic atrial pacemaker ST & T wave abnormality, consider inferior ischemia ST & T wave abnormality, consider anterolateral ischemia Abnormal ECG Compared to ECG 10/20/2020 12:01:05 ST (T wave) deviation now present Sinus rhythm no longer present Myocardial infarct finding no longer present T-wave abnormality no longer present Possible ischemia still present Electronically Signed On 10-24-20 16:09:15 CDT by Daniel Palacios
== END 2020-10-21 16:19 | disposition home or self-care (01) ==
LOC: ER 10:23 → ERHOLD 14:15 → 2ND 16:16
PROVIDERS: ADMIT Hospitalist; ATTEND Hospitalist
DX: R07.9 Chest pain, unspecified (principal); Z95.810 Presence of automatic (implantable) cardiac defibrillator; J06.9 Acute upper respiratory infection, unspecified; Z20.822 Contact with and (suspected) exposure to COVID-19; I11.0 Hypertensive heart disease with heart failure; I50.22 Chronic systolic (congestive) heart failure; I25.10 Atherosclerotic heart disease of native coronary artery without angina pectoris; E78.5 Hyperlipidemia, unspecified; N17.9 Acute kidney failure, unspecified; Z95.1 Presence of aortocoronary bypass graft; E87.6 Hypokalemia
CPT/HCPCS: 93005 ×3; 85025 ×2; 81001; 80048; 36415; 83735 ×2; 84100; 85610; 84300; 80076; 84443; 83036; 82570; 84484 ×3; 84439; 82607; 80053; 82533; 83880 ×2; 83935; 84156; 71045; 76770; 97161; 99285; U0003; J1650 ×2; J2270; J7030 ×2; G0378 ×3

== ENCOUNTER 2021-02-23 08:44 | Emergency (ER) | payer OTHER ==
--- NOTE | 2021-02-23 10:03 | RAD REPORT ---
EXAM DESCRIPTION: RAD - Foot Left 3 View - 02/23/2021 9:25 am CLINICAL HISTORY: Swelling;Pain COMPARISON: No comparisons FINDINGS: No acute fracture or dislocation is seen. Mild soft tissue swelling is seen along the dors al forefoot.
--- NOTE | 2021-02-23 10:29 | RAD REPORT ---
EXAM DESCRIPTION: US - Extremity Venous Uni Ltd - 02/23/2021 10:08 am CLINICAL HISTORY: SWELLING Leg swelling and edema. COMPARISON: No comparisons FINDINGS: Left lower extremity venous system was interrogated with Doppler technique. Normal flow, c ompressibility and augmentation was noted. There is no DVT present. IMPRESSION: No evidence of left lower extremity deep venous thrombosis.
[2021-02-23] MEDS ORDERED: TRAMADOL HCL 50 MG TAB ONE (11:27)
[2021-02-23] MEDS ORDERED: METHYLPREDNISOLONE 125 MG INJ ONE (11:27)
--- NOTE | 2021-02-23 12:13 | EDPHYS ---
Physician Documentation [facility] Name: Berto Grijalva Jr Age: 80 yrs Sex: Male : 1940 Arrival Date: 02/23/2021 Time: 08:48 Bed 7 Private MD: David Angulo E ED Physician Noa Ramirez HPI: 02/23 09:03 This 80 yrs old Male presents to ER via Ambulatory with complaints of Left pm1 Foot Swelling. 09:03 The patient presents with swelling, bruising. The complaints affect the left foot. pm1 Context: The problem was sustained at home, resulted from an unknown cause, Mechanism of Injury: Unknown the patient can fully bear weight, the patient is able to ambulate. Onset: The symptoms/episode began/occurred On and off swelling for many months but noticed swelling with bruising present yesterday. Patient's swelling improved with elevation. Modifying factors: The symptoms are alleviated by elevation of extremity, the symptoms are aggravated by movement. Associated signs and symptoms: Pertinent positives: swelling, Pertinent negatives: calf tenderness, numbness, tingling. Severity of symptoms: in the emergency department the symptoms are actually worse. The patient has experienced similar episodes in the past, multiple times, today's symptoms are similar, but bruising is new. The patient has not recently seen a physician, the patient's primary care provider is Dr. Angulo. Patient with abrasion to left arrieta area 4 days ago when he was sitting in the attic and then as he was stepping down on to the ladder he slipped and scratched his left arrieta. Historical: - Allergies: 09:06 venlafaxine; ss - PMHx: 09:06 Hyperlipidemia; Hypertension; ss - PSHx: 09:06 triple bypass; back X 3; pacemaker/defibrillator; ss - Immunization history:: Client reports receiving the 2nd dose of the Covid vaccine. - Social history:: Smoking status: Patient/guardian denies using tobacco, but has a distant history of tobacco abuse. ROS: 09:03 MS/extremity: Positive for Abrasion to left arrieta, swelling to left ankle and dorsum of pm1 left foot. Bruising to dorsum of left foot and ankle, Negative for decreased range of motion, deformity. 09:03 Constitutional: Negative for fever, chills, and weight loss, Cardiovascular: Negative for chest pain, palpitations, and edema, Respiratory: Negative for shortness of breath, cough, wheezing, and pleuritic chest pain, Abdomen/GI: Negative for abdominal pain, nausea, vomiting, diarrhea, and constipation, Back: Negative for injury and pain, Neuro: Negative for headache, weakness, numbness, tingling, and seizure. 09:03 All other systems are negative. Exam: 09:03 Constitutional: This is a well developed, well nourished patient who is awake, alert, pm1 and in no acute distress. Head/Face: Normocephalic, atraumatic. 09:03 Cardiovascular: Exam negative for acute changes, Rate: normal, Rhythm: regular, Pulses: no pulse deficits are appreciated, Heart sounds: normal, normal S1and S2. 09:03 Respiratory: Exam negative for acute changes, respiratory distress, shortness of breath, Breath sounds: are clear throughout. 09:03 Abdomen/GI: Exam negative for acute changes, Inspection: abdomen appears normal, Palpation: abdomen is soft and non-tender, in all quadrants. 09:03 Musculoskeletal/extremity: Extremities: grossly normal except: noted in the left ankle: swelling, mild bruising present to anterior aspect of left ankle, There is no evidence of deformity, noted in the dorsum of left foot: swelling, Bruising to dorsum of left foot, proximal to 3rd and 4th digits, Pulses: are normal with no appreciated deficits, noted to be 2+ in the left dorsalis pedis artery, the left foot Sensation intact. 09:03 Skin: Appearance: normal except for affected area, bruising to left foot and left ankle as noted on MS exam. 09:03 Neuro: Exam negative for acute changes, Orientation: is normal, Mentation: is normal, Motor: is normal, moves all fours. Vital Signs: 09:02 BP 116 / 68; Pulse 88; Resp 17; Temp 97.8(TE); Pulse Ox 96% on R/A; Weight 58.06 kg; bp Height 5 ft. 0 in. (152.40 cm); Pain 3/10; 10:15 BP 112 / 58; Pulse 60; Resp 15; Pulse Ox 100% ; jl7 11:15 BP 120 / 66; Pulse 60; Resp 15; Pulse Ox 99% ; jl7 12:15 BP 146 / 85; Pulse 72; Resp 15; Pulse Ox 100% ; jl7 09:02 Body Mass Index 25.00 (58.06 kg, 152.40 cm) bp MDM: 08:55 Patient medically screened. pm1 10:53 Data reviewed: vital signs. Data interpreted: Pulse oximetry: on room air is 96 %. pm1 Interpretation: normal. 10:53 Counseling: I had a detailed discussion with the patient and/or guardian regarding: the pm1 historical points, exam findings, and any diagnostic results supporting the discharge/admit diagnosis, radiology results, the need for outpatient follow up, a family practitioner, to return to the emergency department if symptoms worsen or persist or if there are any questions or concerns that arise at home. 11:34 Differential diagnosis: fracture, sprain, arthritis, gout, DVT, cellulitis. pm1 11:34 ED course: Patient reports improvement with steroid and tramadol given in the ER. pm1 Possibility of gout with swelling to the ankle. My likely impression is abrasion to arrieta with sprain to ankle and foot. 11 09:02 Order name: Extremity Venous Uni Ltd US; Complete Time: 10:34 pm1 11 09:02 Order name: Foot Left 3 View XRAY; Complete Time: 10:14 pm1 Administered Medications: 11:30 Drug: SOLU-Medrol (methylPREDNISolone sodium succinate) 125 mg Route: IM; Site: left bp deltoid; 12:40 Follow up: Response: No adverse reaction bp 11:30 Drug: traMADol 50 mg Route: PO; bp 12:40 Follow up: Response: No adverse reaction bp Disposition Summary: 02/23/21 12:12 Discharge Ordered Location: Home pm1 Problem: new pm1 Symptoms: have improved pm1 Condition: Stable pm1 Diagnosis - Abrasion, left lower leg pm1 - Localized swelling, mass and lump, left lower limb - left foot and ankle(02/23/21 pm1 12:17) Followup: pm1 - With: Emergency Department - When: As needed - Reason: Worsening of condition Followup: pm1 - With: Private Physician - When: 2 - 3 days - Reason: Recheck today's complaints, Continuance of care, Re-evaluation by your physician Discharge Instructions: - Discharge Summary Sheet pm1 - Abrasion pm1 - Foot Pain pm1 Forms: - Medication Reconciliation Form pm1 - Thank You Letter pm1 - Antibiotic Education pm1 - Prescription Opioid Use pm1 Prescriptions: - Tramadol 50 mg Oral Tablet - take 1 tablet by ORAL route every 8 hours as needed; 12 tablet; Refills: 0, pm1 Product Selection Permitted - Medrol (Krzysztof) 4 mg Oral Tablets, Dose Pack - take 1 tablet by ORAL route as directed - follow package instructions; 1 pm1 packet; Refills: 0, Product Selection Permitted Addendum: 03/05/2021 05:21 Co-signature as Attending Physician, Noa Ramirez MD PA/[employer]'s history reviewed, m a2 patient interviewed, and examined. I agree with assessment and care plan and confirm the diagnosis (es) above. Signatures: Dispatcher [employer] EDMS Roxie Brown RN RN Ad Archer NP [employer] pm1 Ronald Curiel RN TYREE Noa Ramirez MD MD ma2 Corrections: (The following items were deleted from the chart) 02/23 09:08 09:06 PMHx: Pacemaker; [facility] 09:08 09:06 PSHx: defibrillator; [facility] 12:17 12:12 Localized swelling, mass and lump, left lower limb pm1 pm1
--- NOTE | 2021-02-23 12:13 | ER ---
Nurse's Notes [facility] Name: Berto Grijalva Jr Age: 80 yrs Sex: Male : 1940 Arrival Date: 02/23/2021 Time: 08:48 Bed 7 Private MD: David Angulo E Diagnosis: Localized swelling, mass and lump, left lower limb-left foot and ankle;Abrasion, left lower leg Presentation: 02/23 09:02 Chief complaint: Patient states: Swelling to L foot that began last night, but when ss patient woke up this morning he noticied bruising to his 4th and fifth toes and ankle. Scabbing observed to L arrieta. Pt states that he scrapped it 4 days ago with a 2 x 4, but states that he did not hurt his ankle or foot during that time. Coronavirus screen: Client denies travel out of the [place] in the last 14 days. Ebola Screen: Patient denies exposure to infectious person. Patient denies travel to an Ebola-affected area in the 21 days before illness onset. Initial Sepsis Screen: Does the patient meet any 2 criteria? No. Patient's initial sepsis screen is negative. Does the patient have a suspected source of infection? No. Patient's initial sepsis screen is negative. Risk Assessment: Do you want to hurt yourself or someone else? Patient reports no desire to harm self or others. 09:02 Method Of Arrival: Ambulatory 09:02 Acuity: EVELYNE 3 09:02 Onset of symptoms is unknown. bp Triage Assessment: 09:10 General: Appears in no apparent distress. comfortable, Behavior is cooperative, bp appropriate for age, anxious. Pain: Complains of pain in left foot. EENT: No deficits noted. Neuro: No deficits noted. Cardiovascular: No deficits noted. Respiratory: No deficits noted. GI: No signs and/or symptoms were reported involving the gastrointestinal system. : No signs and/or symptoms were reported regarding the genitourinary system. Derm: Bruising that is dark purple, on left foot. Musculoskeletal: No signs and/or symptoms reported regarding the musculoskeletal system. Historical: - Allergies: 09:06 venlafaxine; ss - PMHx: 09:06 Hyperlipidemia; Hypertension; ss - PSHx: :06 triple bypass; back X 3; pacemaker/defibrillator; ss - Immunization history:: Client reports receiving the 2nd dose of the Covid vaccine. - Social history:: Smoking status: Patient/guardian denies using tobacco, but has a distant history of tobacco abuse. Screenin:10 Abuse screen: Denies threats or abuse. Denies injuries from another. Nutritional bp screening: No deficits noted. Tuberculosis screening: No symptoms or risk factors identified. Fall Risk None identified. Assessment: 09:10 General: SEE TRIAGE NOTE. bp 11:00 Reassessment: No changes from previously documented assessment. Patient and/or family bp updated on plan of care and expected duration. Pain level reassessed. US COMPLETE. 12:39 Reassessment: PT D/C HOME AMBULATORY WITH FAMILY. bp Vital Signs: 09:02 BP 116 / 68; Pulse 88; Resp 17; Temp 97.8(TE); Pulse Ox 96% on R/A; Weight 58.06 kg; bp Height 5 ft. 0 in. (152.40 cm); Pain 3/10; 10:15 BP 112 / 58; Pulse 60; Resp 15; Pulse Ox 100% ; jl7 11:15 BP 120 / 66; Pulse 60; Resp 15; Pulse Ox 99% ; jl7 12:15 BP 146 / 85; Pulse 72; Resp 15; Pulse Ox 100% ; jl7 09:02 Body Mass Index 25.00 (58.06 kg, 152.40 cm) bp ED Course: 08:48 Patient arrived in ED. mr 08:49 David Angulo MD is Private Physician. mr 08:49 Ad [facility] pm1 08:49 Noa Ramirez MD is Attending Physician. pm1 08:55 Ronald Curiel, TYREE is Primary Nurse. bp 09:06 Triage completed. ss 09:06 Arm band placed on right wrist. ss 09:10 Patient has correct armband on for positive identification. Bed in low position. Call bp light in reach. Side rails up X2. 09:25 Foot Left 3 View XRAY In Process Unspecified. EDMS 10:07 Extremity Venous Uni Ltd US In Process Unspecified. EDMS 12:39 No provider procedures requiring assistance completed. Patient did not have IV access bp during this emergency room visit. Administered Medications: 11:30 Drug: SOLU-Medrol (methylPREDNISolone sodium succinate) 125 mg Route: IM; Site: left bp deltoid; 12:40 Follow up: Response: No adverse reaction bp 11:30 Drug: traMADol 50 mg Route: PO; bp 12:40 Follow up: Response: No adverse reaction bp Outcome: 12:12 Discharge ordered by . pm1 12:39 Discharged to home ambulatory, with family. bp 12:39 Condition: stable 12:39 Discharge instructions given to patient, Instructed on discharge instructions, follow up and referral plans. medication usage, Demonstrated understanding of instructions, follow-up care, medications, Prescriptions given X 2. 12:50 Patient left the ED. bp Signatures: Dispatcher [employer] EDDE Mar Gaines Roxie Brown RN RN ss Ad Archer, [employer] pm1 Cassi Cespedes RN RN jl7 Ronald Curiel RN RN bp Corrections: (The following items were deleted from the chart) 09:08 09:06 PMHx: Pacemaker; [facility] 09:08 09:06 PSHx: defibrillator; [facility] 09:23 09:02 Pulse 88bpm; Resp 17bpm; Pulse Ox 96% RA; Temp 97.8F Temporal; 58.06 kg; Height 5 bp ft. 0 in.; BMI: 25.0; Pain 3/10; ss 12:40 12:39 Discharge instructions given to patient, Instructed on discharge instructions, bp follow up and referral plans. Demonstrated understanding of instructions, follow-up care, bp
[2021-02-23 12:54] VITALS: TEMP 97.8
[2021-02-23 12:58] VITALS: BP 146/85; O2SAT 100
--- OUTSIDE RECORDS SUMMARY | 2021-03-03 12:14 | XMS REPORT | Continuity of Care Document ---
:1940 Author Organization [facility] t Address [address] [place] [address] Care Team Providers Name Role Phone FRANKIE GOODMAN Primary Care Physician Unavailable JEFFRY Attending Clinician Unavailable Aristides VELASCO Attending Clinician Unavailable Rod ZULETA, F Attending Clinician Olinda Holcomb MD Attending Clinician [phone] Eber CLEMENTS, L Attending Clinician Unavailable Antione ZULETA Attending Clinician Maile SRINIVASAN Attending Clinician Yaya SANCHEZ Attending Clinician Doctor Unassigned, Name Attending Clinician Unavailable Ryan ZULETA Attending Clinician Olinda MACKENZIE Attending Clinician Unavailable Katelynn VALIENTE Attending Clinician Unavailable Yaya SANCHEZ Admitting Clinician Olinda MACKENZIE Admitting Clinician Unavailable Katelynn VALIENTE Admitting Clinician Unavailable Payers Payer Name Policy Type Policy Number Effective Date Expiration Date S ismajuan YEHUDA/LOUIE [id number] 2020 MEDICARE ADVANTAGE 00:00:00 Problems Condition Condition Condition Status Onset Resolution Last Treating Co mments Source Name Details Category Date Date Treatment Clinician Date Abnormal Abnormal Disease Active Unive rs lead lead 5-17 [place] of impedance [place] cardiac of cardiac 00 Me dical resynchron resynchron Br anch ization ization therapy therapy defibrilla defibrilla tor tor (COVER STRIPPER-D) (COVER STRIPPER-D) Palpitatio Palpitatio Disease Active U nivers ns ns 5-16 ity of 00:00: [place] [facility] Chronic Chronic Disease Active Univers gout gout 4-27 ity of without without 00:00: [place] tophus, tophus, 00 Medical unspecifie unspecifie Br anch d cause, d cause, unspecifie unspecifie d site d site Acute gout Acute gout Disease Active U nivers of right of right 7-07 ity of foot, foot, 00:00: [place] unspecifie unspecifie 00 Me dical d cause d cause Branch Unintentio Unintentio Disease Active U nivers nal weight nal weight 4-27 it y of loss loss 00:00: [place] [facility] Pulmonary Pulmonary Disease Active Uni vers nodules nodules 4-27 ity of 00:00: [place] [facility] CKD stage CKD stage Disease Active Uni vers G3a/A2, G3a/A2, 2-19 ity of GFR 45-59 GFR 45-59 00:00: [place] and 00 Medical albumin albumin Branch creatinine creatinine ratio ratio 30-299 30-299 mg/g mg/g Albuminuri Albuminuri Disease Active U nivers a a 2-19 ity of 00:00: [place] 00 Medical Branch CHF CHF Disease Active Univers (congestiv (congestiv 6-06 it y of e heart e heart 00:00: [place] failure) failure) 00 Medica l Branch S/P OFF S/P OFF Disease Active Univers PUMP CABG PUMP CABG 4-24 ity of x 3 ON x 3 ON 00:00: [place] 08/12/2016 08/12/2016 00 Medi fiona Branch CAD CAD Disease Active Univers (coronary (coronary 4-24 ity of artery artery 00:00: [place] disease) disease) 00 Medica l Branch Unstable Unstable Disease Active Unive rs angina angina 4-20 ity of 00:00: [place] 00 Medical Branch Observatio Observatio Disease Active U nivers n after n after 4-19 ity of surgery surgery 00:00: [place] [facility] Coronary Coronary Disease Active Unive rs artery artery 7-19 ity of disease disease 00:00: [place] involving involving 00 Medi fiona muscogee muscogee Branch coronary coronary artery artery without without angina angina pectoris pectoris PE PE Disease Active Univers (pulmonary (pulmonary 5-31 it y of embolism) embolism) 00:[place] h/o PTCA h/o PTCA Disease Active Unive rs with SHIVA with SHIVA 05-16 ity of in 2010 in 2010 00:00: [place] [facility] Gastroesop Gastroesop Disease Active U nivers hageal hageal 05-16 ity of reflux reflux 00:00: [place] disease disease 00 Medical without without Branch esophagiti esophagiti s s Atrial Atrial Disease Active Univers thrombus thrombus 05-16 ity of 00:00: [place] [facility] Positive Positive Disease Active Unive rs PPD PPD 1- ity of 00:00: [place] [facility] 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 it y of r r [place] tachycardi tachycardi Me dical a a Branch Chronic Chronic Disease Active Univers systolic systolic ity of heart heart [place] failure failure Medical Branch HLD HLD Disease Active Univers (hyperlipi (hyperlipi it y of demia) demia) [facility] Branch Essential Essential Disease Active Uni vers hypertensi hypertensi it y of on on [facility] Branch Allergies, Adverse Reactions, Alerts Allergy Allergy Status Severity Reaction(s) Onset Inactive Treating Comm ents Source Name Type Date Date Clinician Enalapri Propensi Active Cough Univer s l ty to 1-14 ity of adverse 00:00: [place] reaction 00 Medical s Branch ENALAPRI DRUG Active COUGH Univers L INGREDI -14 ity of 00:00: [place] 00 Medical Branch Social History Social Habit Start Date Stop Date Quantity Comments Source History SDOH University o f Alcohol Frequency [place] [facility] ed[facility] History SDOH University o f Alcohol Std [place] [facility] Drinks Branch History SDOH University o f Alcohol Binge [place] [facility] Exposure to Not sure [facility] SARS-CoV-2 [facility] (event) Branch Alcohol intake 2021-02-13 2021-02-13 Current drinker Unive rsity of 00:00:00 00:00:00 of alcohol [facility] (finding) Branch Alcohol Comment 2011-01-11 2011-01-11 drank 20 beers/d Uni versity of 00:00:00 00:00:00 for 7 years; quit [facility] edical 1984 Branch History of 1994-01-11 User of smokeless Univers ity of tobacco use 00:00:00 tobacco [facility] Sex Ass[birth year] At [birth year] Universit y of 00:00:00 00:00:00 [facility] Branch Smoking Status Start Date Stop Date Source Former smoker [facility] Branch Medications Ordered Filled Start Stop Current Ordering Indication Dosage Frequency Signature Comments Components Source Medication Medication Date Date Medication? Clinician (SIG) Name Name dapaglifloz 2020-04 Yes [id number] 10mg Take 1 Univers in 10 mg 1-05 tablet by ity of tablet 00:00: mouth [place] 00 daily. Medical Branch furosemide 2020-04 Yes [id number] 80mg Take 2 Univers 40 mg 0-28 tablets by ity of tablet 00:00: mouth 2 [place] 00 (two) Medical times Branch daily. pramipexole 2020-04 Yes .5mg Take 0.5 Un mykel 0.5 mg 0-26 mg by ity of tablet 14:17: mouth 3 [place] 16 (three) Medical times Branch daily. Indication s: take one tablet by mouth every day dapaglifloz 2020-04- No [id number] 10mg Take 1 Univers in 10 mg 0-26 11-05 tablet by ity o f tablet 00:00: 00:00 mouth [place] 00 :00 daily. Medical Branch FUROSEMIDE 2020- No [id number] TAKE 1 Univers 40 mg 9-23 10-28 TABLET BY ity of tablet 00:00: 00:00 MOUTH [place] 00 :00 EVERY Medical MORNING Branch AND 1 TABLET BY MOUTH IN THE EVENING clopidogreL Yes [id number] 75mg Take 1 Univers 75 mg 9-15 tablet by ity of tablet 00:00: mouth [place] 00 daily. Medical Branch spironolact Yes [id number] 12.5mg Take 0.5 Univers one 25 mg 9-15 tablets by ity of tablet 00:00: mouth [place] 00 daily. Medical Branch losartan Yes [id number] 100mg Take 1 U nivers 100 mg 9-14 tablet by ity of tablet 00:00: mouth [place] 00 daily. Medical Branch aspirin 81 Yes [id number] 81mg Take 1 Univers mg EC 1-14 9100 tablet by ity of tablet 00:00: mouth [place] 00 daily. Medical Branch carvediloL Yes [id number] 6.25mg Take 1 Univers 6.25 mg 1-14 9100 tablet by ity of tablet 00:00: mouth 2 [place] 00 (two) Medical times Branch daily. nitroglycer Yes .3mg Place 1 Uni vers in 0.3 mg 1-14 tablet ity of sublingual 00:00: [place] tablet 00 tongue Medical every 5 Branch (five) minutes as needed for Chest pain. pravastatin Yes [id number] 20mg Take 1 Univers 20 mg 2-28 9100 tablet by ity of tablet 00:00: mouth at [place] 00 bedtime. Medical Branch tamsulosin Yes [id number] .4mg Take 1 Univers (FLOMAX) 2-19 capsule by ity o f 0.4 mg 24 00:00: mouth [place] hr capsule 00 daily. Medical Branch Immunizations Ordered Filled Immunization Date Status Comments [facility] e Immunization Name Name SARS-COV-2 COVID-19 2020-05-27 Completed Unive rsity of MODERNA VACCINE 00:00:00 [facility] SARS-COV-2 COVID-19 2020-04-29 Completed Unive rsity of MODERNA VACCINE 00:00:00 [facility] Influenza High Dose 2019-12-31 Completed Unive rsity of Quad 00:00:00 [facility] Pneumococcal 13 2018-01-07 Completed Universit y of Conjugate, PCV13 00:00:00 [facility] dical (Prevnar 13) [place] Influenza High Dose 2011-01-11 Completed Unive rsity of 00:00:00 [facility] PPD (TB) 2010-04-25 Completed University of 00:00:00 [facility] Influenza Virus 2009-12-20 Completed Universit y of Vaccine 00:00:00 [facility] Zoster(Zostavax)(Sh 2009-03-08 Completed Unive rsity of ingles) 00:00:00 [facility] Pneumococcal 2007-02-26 Completed University o f Polysaccharide, 00:00:00 [facility] ical PPSV23 (PNEUMOVAX) [place] Influenza Virus 2007-01-19 Completed Universit y of Vaccine 00:00:00 [facility] Procedures This patient has no known procedures. Encounters Start End Encounter Admission Attending Care Care Encounter Source Date/Time Date/Time Type Type Clinicians Facility Department ID 2021-04-17 2021-04-17 Outpatient R JEFFRY [facility] [id number] Univers 10:00:00 10:00:00 SOUMYA [id number] [facility] 2021-02-22 2021-02-22 Outpatient R ROD [facility] [id number] Univers 08:30[facility]00 [facility] 2021-02-14 2021-02-14 [facility] [id number] Univers 00:00:00 [facility]00[facility] [id number] i ty of CLEAR [id number] Sravanthi WIGGINS [id number] [place] [address] Branch OFFICE BUILDING 2020-09-20 2020-09-20 Telephone Bella Davis [id number] 00:00:00 00:00:00 Sara, Pediatric [id number] Bernardo gu and [id number] Adult [id number] Primary [facility] 2020-09-05 2020-09-05 Transition Dee Velázquez [id number] 00:00:00 00:00:00 of Care Kathryn Martinez [id number] [place] [id number] 2020-09-03 2020-09-04 Emergency Jordon Talbot [facility] [id number] 14:09:00 14:40:00 Jonatan Gr [id number] Dwight Javier Parnell [id number] [place] [id number] 2020-09-03 2020-09-03 Orders Doctor MICHELLE [id number] 00:00:00 00:00:00 Only Unassigned, BONNIE [id number] [facility] [id number] 2020-08-15 2020-08-15 Office STANFORD Davis [id number] 09:22:34 10:41:17 Visit [facility] [id number] [facility] [id number] 2019-08-24 2019-08-24 Outpatient R BAM [facility] [id number] Univers 07:50:09 23:59:00 MARIA GUADALUPE Jimenez [facility] 2019-08-18 2019-08-18 Outpatient R STEFFANIE [facility] [id number] Univers 13:02:03 23:59:00 LUPIS cantu [facility] Results This patient has no known results.
== END 2021-02-23 12:50 | disposition home or self-care (01) ==
LOC: ER 08:44
DX: S80.812A Abrasion, left lower leg, initial encounter (principal); I10 Essential (primary) hypertension; Z95.1 Presence of aortocoronary bypass graft; Z88.8 Allergy status to other drugs, medicaments and biological substances; Z95.810 Presence of automatic (implantable) cardiac defibrillator
CPT/HCPCS: 73630; 93971; 96372; 99283; J2930

== ENCOUNTER 2021-10-20 15:18 | Observation (INO) | payer OTHER ==
[2021-10-20] MEDS ORDERED: HYDROCODONE/CHLORPHEN 5 ML/OSYR ONE (16:47)
[2021-10-20 17:08] LABS: Absolute Lymphocytes (CBC) 1.1 K/uL (0.7-4.9); Lymphocytes % 14.8 % (15.3-44.8); MCV 91.9 fL (80-100); MPV 9.8 fL (7.6-11.3); RBC Red Blood Cell Count 4.03 M/uL (4.33-5.43)
[2021-10-20 17:14] LABS: Protime INR 1.2
[2021-10-20 17:26] LABS: ALT/SGPT 24 U/L (12-78); AST/SGOT 20 U/L (15-37); Albumin 2.9 g/dL (3.4-5.0); Alkaline Phosphatase 83 U/L (45-117); BUN Blood Urea Nitrogen 18 mg/dL (7-18); Bicarbonate 24 mmol/L (21-32); Bilirubin Total 0.2 mg/dL (0.2-1.0); Glomerular Filtration Rate 43 ml/min (=/>90); Glucose Level 100 mg/dL (74-106); NT PRO-BNP 12102 pg/mL (<450); Potassium 4.4 mmol/L (3.5-5.1); Protein, Total 6.7 g/dL (6.4-8.2); Sodium Level 143 mmol/L (136-145)
[2021-10-20 17:27] LABS: Bilirubin Direct < 0.1 mg/dL (0-0.2)
[2021-10-20 17:30] LABS: Troponin High Sensitivity 197.1 pg/mL (<58.9)
--- NOTE | 2021-10-20 17:31 | RAD REPORT ---
EXAM DESCRIPTION: RAD - Chest Single View - 10/20/2021 5:19 pm CLINICAL HISTORY: Cough COMPARISON: Chest Single View dated 10/20/2020; Chest Pa And Lat (2 Views) dated 10/12/2020; Chest Sing le View dated 10/06/2020; Chest Single View dated 01/28/2020 FINDINGS: Lines: None. Lungs: Ill-defined nodular and consolidative airspace disease in the right greater than left lung bas e. Pleural: Difficult to exclude small effusions. Cardiac: Mild cardiomegaly. Bones: No acute fractures. Other: Sternotomy. Pacemaker/defibrillator. IMPRESSION: Nodular confluent airspace disease in the lung bases, right greater than left, concernin g for pneumonia/pneumonitis.
[2021-10-20] MEDS ORDERED: FUROSEMIDE 40 MG/4 ML VIAL ONE (18:17)
--- NOTE | 2021-10-20 18:29 | ER ---
Nurse's Notes [facility] Name: Berto Grijalva Jr Age: 80 yrs Sex: Male : 1940 Arrival Date: 10/20/2021 Time: 15:22 Bed 17 Private MD: Diagnosis: Acute on chronic combined systolic (congestive) and diastolic (congestive) heart failure;Dyspnea;Volume overload Presentation: 10/20 15:39 Chief complaint: Patient states: difficulty breathing since yesterday with cough, vg1 denies chest pain and states ZHEN ankle swelling. Coronavirus screen: Vaccine status: Patient reports receiving the 2nd dose of the covid vaccine. Client denies travel out of the [place] in the last 14 days. Ebola Screen: Patient denies exposure to infectious person. Patient denies travel to an Ebola-affected area in the 21 days before illness onset. Initial Sepsis Screen: Does the patient meet any 2 criteria? No. Patient's initial sepsis screen is negative. Does the patient have a suspected source of infection? No. Patient's initial sepsis screen is negative. Risk Assessment: Do you want to hurt yourself or someone else? Patient reports no desire to harm self or others. Onset of symptoms was October 19, 2021. 15:39 Method Of Arrival: Ambulatory vg1 15:39 Acuity: EVELYNE 3 vg1 Triage Assessment: 15:41 General: Appears in no apparent distress. comfortable, Behavior is calm, cooperative. vg1 Pain: Denies pain. Cardiovascular: Denies chest pain, Patient's skin is warm and dry. Respiratory: Reports shortness of breath Onset: The symptoms/episode began/occurred yesterday, the patient has mild shortness of breath. Historical: - Allergies: 15:41 venlafaxine; vg1 - Home Meds: 15:42 pravastatin oral [Active]; tamsulosin oral [Active]; senna oral [Active]; aspirin 81 mg vg1 Oral tab [Active]; pramipexole oral [Active]; carvedilol 6.25 mg oral tab [Active]; clopidogrel oral [Active]; - PMHx: 15:41 Hyperlipidemia; Hypertension; vg1 - PSHx: 15:41 back X 3; Pacemaker/Defibrillator; triple bypass; vg1 - Immunization history:: Client reports receiving the 2nd dose of the Covid vaccine. - Social history:: Smoking status: Patient denies any tobacco usage or history of. Screenin:07 Abuse screen: Denies threats or abuse. Denies injuries from another. Nutritional ph screening: No deficits noted. Tuberculosis screening: No symptoms or risk factors identified. Fall Risk None identified. Assessment: 16:05 General: Appears in no apparent distress. comfortable, slender, Behavior is calm, ph cooperative, appropriate for age. Pain: Denies pain. Neuro: Level of Consciousness is awake, alert, obeys commands, Oriented to person, place, time, situation. Cardiovascular: Reports shortness of breath, Capillary refill < 3 seconds in bilateral fingers Patient's skin is warm and dry. Edema is 1+ to left ankle and right ankle. Respiratory: Reports shortness of breath at rest Airway is patent Respiratory effort is even, unlabored, Respiratory pattern is regular, symmetrical. GI: No signs and/or symptoms were reported involving the gastrointestinal system. Derm: Skin is intact, Skin is pink, warm \T\ dry. Musculoskeletal: Circulation, motion, and sensation intact. Range of motion: intact in all extremities. 19:00 Reassessment: No changes from previously documented assessment. Patient and/or family ll3 updated on plan of care and expected duration. Pain level reassessed. Patient is alert, oriented x 3, equal unlabored respirations, skin warm/dry/pink. 20:00 Reassessment: No changes from previously documented assessment. Patient and/or family ll3 updated on plan of care and expected duration. Pain level reassessed. Patient is alert, oriented x 3, equal unlabored respirations, skin warm/dry/pink. Vital Signs: 15:39 BP 140 / 88; Pulse 77; Resp 18; Temp 97.9; Pulse Ox 98% on R/A; Weight 53.98 kg; Height vg1 5 ft. 1 in. (154.94 cm); Pain 0/10; 17:00 BP 134 / 76; Pulse 81; Resp 18; Pulse Ox 99% on R/A; ph 18:30 BP 121 / 75; Pulse 77; Resp 18; Pulse Ox 100% on R/A; ph 19:00 BP 130 / 64; Pulse 79; Resp 20; Pulse Ox 99% ; ll3 20:00 BP 150 / 91; Pulse 94; Resp 20; Pulse Ox 97% on R/A; ll3 15:39 Body Mass Index 22.48 (53.98 kg, 154.94 cm) vg1 ED Course: 15:22 Patient arrived in ED. mr 15:41 Triage completed. vg1 15:41 Arm band placed on. vg1 15:55 Crystal Gray, TYREE is Primary Nurse. ph 16:07 Ad Archer NP is PHCP. pm1 16:07 Cole Jones MD is Attending Physician. pm1 16:07 Patient has correct armband on for positive identification. Bed in low position. Call ph light in reach. Side rails up X 1. Client placed on continuous cardiac and pulse oximetry monitoring. NIBP monitoring applied. 16:17 EKG done, by ED staff, reviewed by Ad Archer NP. jw7 16:55 Inserted saline lock: 22 gauge in right forearm, using aseptic technique. Blood ph collected. 17:21 XRAY Chest (1 view) In Process Unspecified. EDMS 18:28 Noa Alfaro MD is Hospitalizing Provider. pm1 18:31 Assist provider with bone marrow aspiration. ph 18:32 Patient admitted, IV remains in place. ph Administered Medications: 16:55 Drug: Tussionex Pennkinetic ER (chlorpheniramine-hydrocodone) Suspension 5 ml Route: PO;ph 18:30 Follow up: Response: No adverse reaction ph 18:30 Drug: Lasix (furosemide) 40 mg Route: IVP; Site: right antecubital; ph 18:30 Follow up: Response: No adverse reaction ph Medication: 16:07 VIS not applicable for this client. ph Outcome: 18:28 Decision to Hospitalize by Provider. pm1 21:01 Patient left the ED. 5 Signatures: Dispatcher [employer] EDMN Mra Gaines Crystal Gray, TYREE CLEMENTS Ad Archer, EVANGELIST SPIKEMAKING SUPERVISOR pm1 Maria A Sousa [facility] Betzy Proctor RN RN [facility] Myranda Olson RN RN 3 Linnette [facility]
--- NOTE | 2021-10-20 18:30 | EDPHYS ---
Physician Documentation [facility] Name: Berto Grijalva Jr Age: 80 yrs Sex: Male : 1940 Arrival Date: 10/20/2021 Time: 15:22 Bed 17 Private MD: ED Physician Cole Jones HPI: 10/20 16:30 This 80 yrs old Male presents to ER via Ambulatory with complaints of pm1 Breathing Difficulty. 16:30 The patient has shortness of breath with light activity, and the patient has a history pm1 of CHF. Onset: The symptoms/episode began/occurred yesterday. Duration: The symptoms are continuous, and are steadily getting worse. The patient's shortness of breath is aggravated by exertion, is alleviated by rest. Associated signs and symptoms: Pertinent positives: non-productive cough, Pertinent negatives: chest pain, fever. Severity of symptoms: in the emergency department the symptoms are worse Pain is currently a 0 / 10. The patient has not recently seen a physician. Historical: - Allergies: 15:41 venlafaxine; vg1 - Home Meds: 15:42 pravastatin oral [Active]; tamsulosin oral [Active]; senna oral [Active]; aspirin 81 mg vg1 Oral tab [Active]; pramipexole oral [Active]; carvedilol 6.25 mg oral tab [Active]; clopidogrel oral [Active]; - PMHx: 15:41 Hyperlipidemia; Hypertension; vg1 - PSHx: 15:41 back X 3; Pacemaker/Defibrillator; triple bypass; vg1 - Immunization history:: Client reports receiving the 2nd dose of the Covid vaccine. - Social history:: Smoking status: Patient denies any tobacco usage or history of. ROS: 16:30 Constitutional: Negative for fever, chills, and weight loss. pm1 16:30 Abdomen/GI: Negative for abdominal pain, nausea, vomiting, diarrhea, and constipation, Back: Negative for injury and pain, MS/Extremity: Negative for injury and deformity, Skin: Negative for injury, rash, and discoloration, Neuro: Negative for headache, weakness, numbness, tingling, and seizure. 16:30 Cardiovascular: Positive for edema, lower extremities, Negative for chest pain. 16:30 Respiratory: Positive for cough, shortness of breath, on exertion. 16:30 All other systems are negative. Exam: 16:30 Constitutional: This is a well developed, well nourished patient who is awake, alert, pm1 and in no acute distress. Head/Face: Normocephalic, atraumatic. 16:30 Back: No spinal tenderness. No costovertebral tenderness. Full range of motion. Skin: Warm, dry with normal turgor. Normal color with no rashes, no lesions, and no evidence of cellulitis. MS/ Extremity: Pulses equal, no cyanosis. Neurovascular intact. Full, normal range of motion. 16:30 Cardiovascular: Exam negative for acute changes, Rate: normal, Rhythm: regular, Pulses: no pulse deficits are appreciated. 16:30 Respiratory: Exam negative for acute changes, respiratory distress, shortness of breath, Breath sounds: decreased breath sounds, are located in both bases. 16:30 Abdomen/GI: Exam negative for acute changes, Inspection: abdomen appears normal, Palpation: abdomen is soft and non-tender, in all quadrants. 16:30 Neuro: Exam negative for acute changes, Orientation: is normal, Mentation: is normal. Vital Signs: 15:39 BP 140 / 88; Pulse 77; Resp 18; Temp 97.9; Pulse Ox 98% on R/A; Weight 53.98 kg; Height vg1 5 ft. 1 in. (154.94 cm); Pain 0/10; 17:00 BP 134 / 76; Pulse 81; Resp 18; Pulse Ox 99% on R/A; ph 18:30 BP 121 / 75; Pulse 77; Resp 18; Pulse Ox 100% on R/A; ph 19:00 BP 130 / 64; Pulse 79; Resp 20; Pulse Ox 99% ; ll3 20:00 BP 150 / 91; Pulse 94; Resp 20; Pulse Ox 97% on R/A; ll3 15:39 Body Mass Index 22.48 (53.98 kg, 154.94 cm) vg1 MDM: 16:29 Patient medically screened. pm1 18:14 Data reviewed: vital signs. Data interpreted: Pulse oximetry: on room air is 98 %. pm1 Interpretation: normal. Counseling: I had a detailed discussion with the patient and/or guardian regarding: the historical points, exam findings, and any diagnostic results supporting the discharge/admit diagnosis, lab results, radiology results, the need for further work-up and treatment in the hospital. 18:14 ED course: Patient with volume overload causing his shortness of breath. Patient has pm1 not taken his Lasix for three weeks due to prior ER visit at another hospital. He was told that he was too dry and that he needed to stop the Lasix. Has not followed up post ER visit. Contacted his engineer internship today and was instructed to report to the ER for evaluation and treatment. Patient with elevated troponin and exertion shortness of breath. Will admit for diuresis. 10/20 16:30 Order name: Basic Metabolic Panel; Complete Time: 17:51 pm1 10/20 16:30 Order name: CBC with Diff; Complete Time: 17:30 pm1 10/20 16:30 Order name: LFT's; Complete Time: 17:51 pm1 10/20 16:30 Order name: Magnesium; Complete Time: 17:51 pm1 10/20 16:30 Order name: NT PRO-BNP; Complete Time: 17:51 pm1 10/20 16:30 Order name: PT-INR; Complete Time: 17:15 pm1 10/20 16:30 Order name: Troponin HS; Complete Time: 17:51 pm1 10/20 16:30 Order name: XRAY Chest (1 view); Complete Time: 17:51 pm1 10/20 16:30 Order name: Flu; Complete Time: 17:30 pm10/20 16:30 Order name: COVID-19 SARS RT PCR (Document "Date of Onset" if Symptomatic); Complete pm1 Time: 18:33 10/20 16:30 Order name: Strep; Complete Time: 17:30 pm10/20 17:19 Order name: Throat Culture [facility] 10/20 16:30 Order name: EKG; Complete Time: 16:31 pm10/20 16:30 Order name: Cardiac monitoring; Complete Time: 18:23 pm1 10/20 16:30 Order name: EKG - Nurse/Tech; Complete Time: 18:23 pm10/20 16:30 Order name: IV Saline Lock; Complete Time: 18:23 pm1 10/20 16:30 Order name: Labs collected and sent; Complete Time: 18:23 pm10/20 16:30 Order name: O2 Per Protocol; Complete Time: 18:24 pm10/20 16:30 Order name: O2 Sat Monitoring; Complete Time: 18:24 pm1 Administered Medications: 16:55 Drug: Tussionex Pennkinetic ER (chlorpheniramine-hydrocodone) Suspension 5 ml Route: PO;ph 18:30 Follow up: Response: No adverse reaction ph 18:30 Drug: Lasix (furosemide) 40 mg Route: IVP; Site: right antecubital; ph 18:30 Follow up: Response: No adverse reaction ph Disposition: 10/21 07:07 Co-signature as Attending Physician, Cole Jones MD I agree with the assessment and kdr plan of care. 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
--- NOTE | 2021-10-20 19:23 | P.HP ---
Certification for Inpatient Patient admitted to: Observation With expected LOS: <2 Midnights Patient will require the following post-hospital care: None Practitioner: I am a practitioner with admitting privileges, knowledge of patient current condition, hospital course, and medical plan of care. Services: Services provided to patient in accordance with Admission requirements found in Title 42 Section 412.3 of the Code of Federal Regulations <Ciara Ramesh - Last Filed: 10/20/21 19:10> Patient History Date of Service: 10/20/21 Reason for admission: CHF Exacerbation History of Present Illness: Patient is an 80 y/o M with HTN, HLD, CHF, CAD, pacemaker/defibrillator in place who presented to the ED with complaints of worsening SHOB with exertion, bilateral ankle swelling, and cough. Patient reports that he went to an ER a few weeks ago and they told him to stop his lasix because he was too dry. He has not yet followed up with his associate professor of physics ([facility]). His labs today are significant for BNP 61390, troponin 197, Cr 1.6. EKG showed ST & T wave abnormality with prolonged QT. CXR showed nodular confluent airspace disease in the lung bases, right greater than left, concerning for pneumonia/pneumonitis. Patient does report a cough with thick yellow sputum. WBC WNL. No fever. He was given 40 mg lasix in ED. Provider wishes to admit for observation. Home medications list reviewed: Yes - Past Medical/Surgical History Diabetic: No -: Hypertension -: CHF -: CAD -: HLD -: Bypass Surgery -: AICD Psychosocial/ Personal History: Patient is . His daughter helps take care of him. - Family History Family History: Reviewed- Non-Contributory - Social History Smoking Status: Former smoker Alcohol use: No CD- Drugs: No Caffeine use: Yes Place of Residence: Home <Do Rameshia - Last Filed: 10/20/21 19:10> Date of Service: 10/21/21 <Noa Alfaro - Last Filed: 10/21/21 15:12> Allergies venlafaxine [From Effexor] Adverse Reaction (Verified 06/16/17 09:02) nightmares Home Medications: Aspirin [Adult Low Dose Aspirin EC] 81 mg PO DAILY 10/21/21 Azithromycin [Zithromax] 250 mg PO ZPAK #1 sebas 10/21/21 Carvedilol [Coreg] 6.25 mg PO BID 10/21/21 Cefdinir [Omnicef] 300 mg PO BID #10 capsule 10/21/21 Clopidogrel Bisulfate [Plavix] 75 mg PO DAILY 10/21/21 Hydrocodone/Chlorphen Polis [Tussionex Oral Susp*] 5 ml PO BID PRN #100 ml 10/21/21 Pramipexole [Mirapex*] 0.5 mg PO BEDTIME 10/21/21 Pravastatin [Pravachol*] 40 mg PO DAILY 10/21/21 Sennosides [Senna] 8.6 mg PO BID 10/21/21 Tamsulosin [Flomax*] 1 cap PO DAILY 10/21/21 predniSONE [Prednisone*] 20 mg PO DAILY #5 tab 10/21/21 Review of Systems Respiratory: Cough, SOB with Excertion, Other (orthopnea) Musculoskeletal: Pedal edema <Brown,Ciara - Last Filed: 10/20/21 19:10> Physical Examination - Physical Exam General: Alert, In no apparent distress HEENT: Atraumatic, PERRLA, EOMI, Sclerae nonicteric Neck: Supple, 2+ carotid pulse no bruit, No LAD, Without JVD or thyroid abnormality Respiratory: Crackles/rales Cardiovascular: Regular rate/rhythm, Normal S1 S2, Edema (1+ pitting edema) Gastrointestinal: Normal bowel sounds, No tenderness Musculoskeletal: No tenderness Integumentary: No rashes Neurological: Normal speech, Normal strength at 5/5 x4 extr, Normal tone, Normal affect - Studies Laboratory Data (last 24 hrs) 10/20/21 16:50: PT 13.3 H, INR 1.20 10/20/21 16:50: WBC 7.1, Hgb 12.3 L, Hct 37.0 L, Plt Count 197 10/20/21 16:50: Sodium 143, Potassium 4.4, BUN 18, Creatinine 1.60 H, Glucose 100, Magnesium 2.0, Total Bilirubin 0.2, AST 20, ALT 24, Alkaline Phosphatase 83 Microbiology Data (last 24 hrs): 10/20/21 16:55 Nasopharnyx Influenza Type A Antigen Screen - Final 10/20/21 16:55 Nasopharnyx Influenza Type B Antigen Screen - Final 10/20/21 16:55 Throat Group A Streptococcus Rapid Screen - Final <Ciara Ramesh - Last Filed: 10/20/21 19:10> - Studies Laboratory Data (last 24 hrs) 10/20/21 16:50: PT 13.3 H, INR 1.20 10/20/21 16:50: WBC 7.1, Hgb 12.3 L, Hct 37.0 L, Plt Count 197 10/20/21 16:50: Sodium 143, Potassium 4.4, BUN 18, Creatinine 1.60 H, Glucose 100, Magnesium 2.0, Total Bilirubin 0.2, AST 20, ALT 24, Alkaline Phosphatase 83 Microbiology Data (last 24 hrs): 10/20/21 16:55 Nasopharnyx Influenza Type A Antigen Screen - Final 10/20/21 16:55 Nasopharnyx Influenza Type B Antigen Screen - Final 10/20/21 16:55 Throat Group A Streptococcus Rapid Screen - Final <Alfaro,Noa Misha - Last Filed: 10/21/21 15:12> Assessment and Plan - Problems (Diagnosis) (1) CHF (congestive heart failure) Current Visit: Yes Status: Chronic Qualifiers: Heart failure type: systolic Heart failure chronicity: acute on chronic Qualified Code(s): I50.23 - Acute on chronic systolic (congestive) heart failure (2) BRIE (acute kidney injury) Current Visit: Yes Status: Acute (3) Elevated troponin Current Visit: Yes Status: Acute (4) CKD (chronic kidney disease) stage 3, GFR 30-59 ml/min Current Visit: Yes Status: Chronic Qualifiers: Chronic kidney disease stage 3 subtype: stage 3b (GFR 30-44) Qualified Code(s): N18.32 - Chronic kidney disease, stage 3b (5) Coronary artery disease Current Visit: Yes Status: Chronic Qualifiers: Coronary Disease-Associated Artery/Lesion type: bypass graft [place] vs. transplanted heart: [place] heart Associated angina: without angina Qualified Code(s): I25.810 - Atherosclerosis of coronary artery bypass graft(s) without angina pectoris (6) HLD (hyperlipidemia) Current Visit: Yes Status: Chronic Qualifiers: Hyperlipidemia type: unspecified (7) Hypertension Current Visit: Yes Status: Chronic Qualifiers: Hypertension type: unspecified Qualified Code(s): I10 - Essential (primary) hypertension (8) AICD (automatic cardioverter/defibrillator) present Current Visit: Yes Status: Chronic (9) Pneumonia Current Visit: Yes Status: Acute Qualifiers: Pneumonia type: due to unspecified organism Laterality: bilateral Lung location: lower lobe of lung Qualified Code(s): J18.9 - Pneumonia, unspecified organism - Plan -Initial troponin elevated at 197. Likely secondary to CHF exacerbation (BNP 12,000). Will trend and and check CPK/CKMB. -Given 40 mg IV lasix in ED. Will continue 20 mg IV BID and await cardio recommendation. Patient formerly taking 40 mg PO BID. -Patient reports he had an echo about 9 months ago but is unsure of the results. Ordered echo for morning. -CXR suggested pneumonia/pneumonitis. Patient symptoms more likely acute CHF but patient does report cough with thick yellow sputum. No fever or white count. Will start azithromycin and rocephin for now. -Kidney function slightly elevated likely secondary to CHF exacerbation. Recheck in morning. -Lovenox for VTE ppx -Full code Discharge Plan: Home Plan to discharge in: 24 Hours - Advance Directives Does patient have a Living Will: No Does patient have a Durable POA for Healthcare: No - Code Status/Comfort Care Code Status Assessed: Yes (Full) Critical Care: No Time Spent Managing Pts Care (In Minutes): 50 <Ciara Ramesh - Last Filed: 10/20/21 19:10> Date of Service: 10/21/21 Subjective: HPI as mentioned above Physical Examination: Vitals: Afebrile vital signs are stable Physical exam: Cardiovascular: Within normal limits. Lungs: Within normal limits Abdomen: Within normal limits Neuro: Awake, alert, oriented to person place and time Assessment: 1. Congestive heart failure Plan: 1. Continue with current plan of care as mentioned above <Noa Alfaro - Last Filed: 10/21/21 15:12>
[2021-10-20] MEDS ORDERED: ONDANSETRON 4 MG/2 ML VIAL IV PRN (20:02)
[2021-10-20] MEDS ORDERED: ALBUTEROL 2.5 MG/3 ML NEB SOL NEB PRN (20:02)
[2021-10-20] MEDS ORDERED: HYDROCODONE/CHLORPHEN 5 ML/OSYR PO PRN (20:02)
[2021-10-20] MEDS ORDERED: ACETAMINOPHEN 500 MG TAB PO PRN (20:02)
[2021-10-20 21:10] LABS: CKMB Creatine Kinase MB 7.2 ng/mL (1.0-3.6)
[2021-10-20 22:06] VITALS: BMI 21.3
[2021-10-21 04:50] LABS: Hematocrit 34.9 % (39.6-49.0); MCV 92.6 fL (80-100); MPV 9.5 fL (7.6-11.3); RBC Red Blood Cell Count 3.77 M/uL (4.33-5.43)
[2021-10-21 05:19] LABS: Magnesium 1.9 mg/dL (1.8-2.4); Phosphorus 3.4 mg/dL (2.5-4.9); Thyroid Stimulating Hormone 0.934 uIU/mL (0.360-3.740)
[2021-10-21 05:20] LABS: Troponin High Sensitivity 169.8 pg/mL (<58.9)
[2021-10-21] MEDS ORDERED: AZITHROMYCIN IV 500 MG in NA CHLORIDE 0.9% 250 ML IVPB SCH (09:00)
[2021-10-21] MEDS ORDERED: CEFTRIAXONE 1,000 MG in NA CHLORIDE 0.9% 50 ML IVPB SCH (09:00)
[2021-10-21] MEDS ORDERED: ENOXAPARIN 30 MG/0.3 ML SQ SCH (09:00)
[2021-10-21] MEDS ORDERED: FUROSEMIDE 20 MG/ 2ML VIAL IV SCH (09:00)
[2021-10-21 09:29] LABS: Urine Appearance Clear (Clear); Urine Bilirubin Negative (Negative); Urine Blood Negative (Negative); Urine Color Yellow (Yellow); Urine Glucose Negative (Negative); Urine Protein Trace (Negative); Urine Urobilinogen 0.2 mg/dL (0.2-1.0)
[2021-10-21 09:32] LABS: Urine Microscopic Reflex ORDER UMIC
[2021-10-21 09:38] LABS: Urine Bacteria NONE SEEN /HPF (NONE SEEN); Urine RBC NONE SEEN /HPF (NONE SEEN)
[2021-10-21 10:08] VITALS: O2SAT 96
--- NOTE | 2021-10-21 15:13 | P.DS ---
Discharge Date: 10/21/21 Disposition: ROUTINE DISCHARGE Discharge Condition: GOOD Reason for Admission: CHF Exacerbation Brief History of Present Illness: Patient is an 80 y/o M with HTN, HLD, CHF, CAD, pacemaker/defibrillator in place who presented to the ED with complaints of worsening SHOB with exertion, bilateral ankle swelling, and cough. Patient reports that he went to an ER a few weeks ago and they told him to stop his lasix because he was too dry. 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 His labs today are significant for BNP 37767, troponin 197, Cr 1.6. EKG showed ST & T wave abnormality with prolonged QT. CXR showed nodular confluent airspace disease in the lung bases, right greater than left, concerning for pneumonia/pneumonitis. Patient does report a cough with thick yellow sputum. WBC WNL. No fever. He was given 40 mg l asix in ED. Provider wishes to admit for observation. Hospital Course: Patient's heart failure is compensated. Patient is clinically doing much better. Patient may have a slight pneumonia and I will discharge him on antibiotic therapy. Continue with diuretics and outpatient follow-up with Dr. Buckner. Vital Signs/Physical Exam: Temp Pulse Resp BP Pulse Ox 98.2 F 72 18 103/51 L 98 10/21/21 12:00 10/21/21 12:00 10/21/21 12:00 10/21/21 12:00 10/21/21 12:00 General: Alert, In no apparent distress, Oriented x3 Laboratory Data at Discharge: WBC 8.8 K/uL (4.3-10.9) D 10/21/21 04:29 Hgb 11.7 g/dL (13.6-17.9) L 10/21/21 04:29 Hct 34.9 % (39.6-49.0) L 10/21/21 04:29 Plt Count 189 K/uL (152-406) 10/21/21 04:29 PT 13.3 SECONDS (9.5-12.5) H 10/20/21 16:50 INR 1.20 10/20/21 16:50 Sodium 142 mmol/L (136-145) 10/21/21 04:29 Potassium 4.0 mmol/L (3.5-5.1) 10/21/21 04:29 BUN 19 mg/dL (7-18) H 10/21/21 04:29 Creatinine 1.49 mg/dL (0.55-1.3) H 10/21/21 04:29 Glucose 85 mg/dL (74-106) 10/21/21 04:29 Phosphorus 3.4 mg/dL (2.5-4.9) 10/21/21 04:29 Magnesium 1.9 mg/dL (1.8-2.4) 10/21/21 04:29 Total Bilirubin 0.2 mg/dL (0.2-1.0) 10/20/21 16:50 AST 20 U/L (15-37) 10/20/21 16:50 ALT 24 U/L (12-78) 10/20/21 16:50 Alkaline Phosphatase 83 U/L (45-117) 10/20/21 16:50 Triglycerides 57 mg/dL (<150) 10/21/21 04:29 Cholesterol 110 mg/dL (<200) 10/21/21 04:29 HDL Cholesterol 36 mg/dL (40-60) L 10/21/21 04:29 Cholesterol/HDL Ratio 3.06 10/21/21 04:29 Home Medications: Aspirin [Adult Low Dose Aspirin EC] 81 mg PO DAILY 10/21/21 Azithromycin [Zithromax] 250 mg PO ZPAK #1 sebas 10/21/21 Carvedilol [Coreg] 6.25 mg PO BID 10/21/21 Cefdinir [Omnicef] 300 mg PO BID #10 capsule 10/21/21 Clopidogrel Bisulfate [Plavix] 75 mg PO DAILY 10/21/21 Hydrocodone/Chlorphen Polis [Tussionex Oral Susp*] 5 ml PO BID PRN #100 ml 10/21/21 Pramipexole [Mirapex*] 0.5 mg PO BEDTIME 10/21/21 Pravastatin [Pravachol*] 40 mg PO DAILY 10/21/21 Sennosides [Senna] 8.6 mg PO BID 10/21/21 Tamsulosin [Flomax*] 1 cap PO DAILY 10/21/21 predniSONE [Prednisone*] 20 mg PO DAILY #5 tab 10/21/21 New Medications: Cefdinir [Omnicef] 300 mg PO BID #10 capsule predniSONE [Prednisone*] 20 mg PO DAILY #5 tab Hydrocodone/Chlorphen Polis [Tussionex Oral Susp*] 5 ml PO BID PRN #100 ml PRN Reason: Cough Azithromycin [Zithromax] 250 mg PO ZPAK #1 sebas Physician Discharge Instructions: -DC IV and DC home -Follow-up with PCP in 1 to 2 weeks -Follow-up with Cardiology-Dr. Buckner- in 1 to 2 weeks -Please call Dr. Alfaro at [phone] if any questions regarding hospital stay -Please call nursing station at [phone] if any nursing or medication questions -Return to the emergency room if symptoms worsen Diet: AHA Activity: Fall precautions Followup: OOT,OOT [Primary Care Provider] - Time spent managing pt's care (in minutes): 35
[2021-10-21 15:59] VITALS: BP 99/57; TEMP 98
[2021-10-21] MEDS ORDERED: SENOSIDES 8.6 MG TAB PO SCH (21:00)
[2021-10-21] MEDS ORDERED: carvediloL 3.125 MG TAB PO SCH (21:00)
[2021-10-21] MEDS ORDERED: PRAMIPEXOLE 0.25 MG TAB PO SCH (21:00)
--- NOTE | 2021-10-22 02:57 | CON ---
Date of Consultation: 10/21/2021 Reason For Consultation: Congestive heart failure. History Of Present Illness: Mr. Grijalva is an 80-year-old male, has a history of hypertension, dysl ipidemia, CABG, AICD with biventricular pacemaker. He follows up with Dr. Balderrama at [facility]. Came the n with shortness of breath, was found to be in mild failure as well as mild COPD exacerbation. He quintero s improved on inhalers and Lasix. He was requesting to go home. Denied any chest pain, nausea, vomi ting, diaphoresis, PND, or orthopnea. Has had some pedal edema. Denied any palpitation or syncope. Denied any fever or chills or cough. Past Medical History: As stated above. Allergies: HE IS ALLERGIC TO VENLAFAXINE. Review of Systems: Negative. Social History: Negative. Family History: Noncontributory. Medications: At home include aspirin, Coreg, Plavix, Flomax, and Pravachol. Physical Examination: Vital Signs: Stable. He was afebrile. He was in a paced rhythm. HEENT: Negative. Neck: Supple with no bruit. Chest: Reveals some crackles at both bases. Cardiac: Revealed a regular rhythm and rate. No murmurs, gallops, or rubs. Abdomen: Benign. Extremities: Revealed no clubbing, cyanosis, or edema. Laboratory And Imaging Data: Chest x-ray showed possible pneumonia. BNP was 12,000. Troponins 169. Creatinine of 1.6. Impression And Plan: 1.Acute on chronic exacerbation of systolic congestive heart failure. Elevated troponin and BNP sec ondary to congestive heart failure and demand ischemia. This is not an acute coronary syndrome. 2.Renal insufficiency. We need to watch his creatinine after given him Lasix. 3.History of hypertension, well controlled. 4.Dyslipidemia, well controlled. 5.History of coronary artery disease, status post coronary artery bypass graft, well controlled. 6.Status post defibrillator and pacemaker. I think we need to continue his aspirin, Coreg, Plavix, Flomax, and Pravachol. He can probably go ho me on his home medication plus a low-dose Lasix. Consider using some antibiotics as well. He follow s up with Dr. Balderrama in the very near future. No cardiac workup recommended at this point. NB/MODL Voice ID: [id number] Report ID: [id number]
[2021-10-22] MEDS ORDERED: ASPIRIN EC 81 MG TAB PO SCH (09:00)
[2021-10-22] MEDS ORDERED: TAMSULOSIN 0.4 MG SR CAP PO SCH (09:00)
[2021-10-22] MEDS ORDERED: ATORVASTATIN 10 MG TAB PO SCH (09:00)
[2021-10-22] MEDS ORDERED: CLOPIDOGREL 75 MG TABLET PO SCH (09:00)
--- NOTE | 2021-10-23 08:03 | EKG ---
Test Date: 2021-10-20 Test Time: 16:11:59 [employer]: ALEX MEASUREMENT RESULTS: Intervals: Rate: 69 NE: 152 QRSD: 86 QT: 440 QTc: 471 [place]: P: 54 NE: 152 QRS: 41 T: 241 INTERPRETIVE STATEMENTS: Sinus rhythm with occasional premature ventricular complexes Possible Left atrial enlargement ST & T wave abnormality, consider inferolateral ischemia Prolonged QT Abnormal ECG Compared to ECG 10/20/2020 17:19:37 Ventricular premature complex(es) now present Prolonged QT interval now present Atrial-paced complex(es) or rhythm no longer present ST (T wave) deviation still present Possible ischemia still present Electronically Signed On 10-23-21 07:56:11 CDT by Daniel Palacios
== END 2021-10-21 15:56 | disposition home or self-care (01) ==
LOC: ER 15:18 → ERHOLD 19:04 → 4TH 20:01
PROVIDERS: ADMIT Hospitalist; ATTEND Hospitalist
DX: I13.0 Hypertensive heart and chronic kidney disease with heart failure and stage 1 through stage 4 chronic kidney disease, or unspecified chronic kidney disease (principal); I50.23 Acute on chronic systolic (congestive) heart failure; N18.32 Chronic kidney disease, stage 3b; N17.9 Acute kidney failure, unspecified; I24.8 Other forms of acute ischemic heart disease; J18.9 Pneumonia, unspecified organism; J44.1 Chronic obstructive pulmonary disease with (acute) exacerbation; I25.810 Atherosclerosis of coronary artery bypass graft(s) without angina pectoris; E78.5 Hyperlipidemia, unspecified; Z95.1 Presence of aortocoronary bypass graft; Z95.810 Presence of automatic (implantable) cardiac defibrillator; Z87.891 Personal history of nicotine dependence; Z79.02 Long term (current) use of antithrombotics/antiplatelets; Z79.82 Long term (current) use of aspirin; Z79.899 Other long term (current) drug therapy; Z88.8 Allergy status to other drugs, medicaments and biological substances; Z20.822 Contact with and (suspected) exposure to COVID-19
CPT/HCPCS: 93005; 87070; 85025 ×2; 80048 ×2; 36415; 83735 ×2; 82550; 84100; 85610; 80061; 80076; 87081; 84443; 84484 ×3; 82553; 83880; 87804 ×2; 71045; 94010; 96374; 99285; U0003; J1940 ×2; J0456; J1650; J7050; G0378 ×3; 81003; 81015